=== PATIENT | male | born 1970 | race Caucasian/White ===

== ENCOUNTER → 2021-08-16 11:48 | Outpatient (CLI) | payer OTHER, SELFPAY ==
[2021-08-16 15:09] LABS: Absolute Lymphocyte Count 1.35 X10^3/uL (0.83-4.51); Basophil# 0.06 X10^3/uL; Eosinophil# 0.09 X10^3/uL; Eosinophils% 1.5 % (0-5); Hematocrit 49.7 % (40-54); Hemoglobin 16.3 g/dL (13.0-16.5); Lymphocyte # 1.35 X10^3/ul (0.83-4.51); Lymphocyte % 22.4 % (19-41); Mean Corp Hgb Conc 32.8 g/dL (32-36); Mean Corpuscular Hgb 28.7 pg (27.0-32.0); Mean Corpuscular Volume 87.5 fL (80-94); Mean Platelet Vol. 10.8 fl (6.2-12.0); Monocyte# 0.52 X10^3/uL; Monocyte% 8.6 % (0-10); NRBC Flagged by Analyzer 0 % (0-5); Neutrophil # 3.96 X10^3/uL (2.7-7.7); Neutrophil % 65.8 % (47-70); Platelet Count 233 K/mm3 (150-450); RBC Distribution Width SD 41.7 fl (35.1-43.9); Red Blood Count 5.68 M/mm3 (4.6-6.2)
[2021-08-16 15:32] LABS: ALB/GLOB Ratio 1.1 RATIO (0.9-2.4); AST(SGOT) 18 U/L (15-37); Alanine Aminotransfer ALT/SGPT 47 U/L (16-61); Albumin, Serum 3.9 g/dL (3.2-5.0); Alkaline Phosphatase 80 U/L (45-117); Anion Gap 7 (5-15); BUN 18 mg/dL (7-18); BUN/Creat Ratio 19.8 RATIO (10-20); Calcium,Total 8.7 mg/dL (8.5-10.1); Chloride 106 mmol/L (98-107); Cholesterol 148 mg/dL (200); Creatinine, Serum 0.91 mg/dL (0.70-1.30); EST Glomerular Filtration Rate 93 mL/min (>60); Est Glom Filt Rate - Afr Amer 113 mL/min (>60); Globulin 3.7 g/dL (2.2-4.2); Glucose 148 mg/dL (74-106); High Density Lipoprotein 48 mg/dL; Protein, Total 7.6 g/dL (6.4-8.2); Sodium Level 139 mmol/L (136-145); Thyroid Stim Hormone (TSH) 1.84 uIU/mL (0.358-3.74); Triglycerides 112 mg/dL; Very Low Density Lipoprotein 22 mg/dL (5-40)
[2021-08-16 15:35] LABS: Hemoglobin A1c 6.1 % (3.8-5.6)
[2021-08-16 15:36] LABS: Microalbumin,Random Urine 8.9 mg/L (NO RANGE EST.); Microalbumin:Creatinine Ratio 7.3 mg/g CRE (<30 mg/g CRE)
== END ==
PROVIDERS: Family Medicine; Visit Provider Family Medicine
DX: E11.9 Type 2 diabetes mellitus without complications (principal)
CPT/HCPCS: 36415; 80053; 80061; 82043; 82570; 83036; 84443; 85025

== ENCOUNTER → 2021-10-19 | Outpatient (CLI) | payer OTHER, SELFPAY | END | disposition home or self-care (01) | PROVIDERS: Visit Provider Family Medicine | DX: J22 Unspecified acute lower respiratory infection (principal) | CPT/HCPCS: 87633 ==

== ENCOUNTER 2021-10-22 09:33 | Emergency (ER) | payer OTHER, SELFPAY ==
[2021-10-22 09:34] VITALS: BP 175/80; PULSE 80; RESP 16; TEMP 36.9; O2SAT 99; BMI 34.0
[2021-10-22 09:38] VITALS: RESP 16; O2SAT 97
--- NOTE | 2021-10-22 09:38 | EKG12_ITS ---
Test Reason : POSS FLUTTER Blood Pressure : / mmHG Vent. Rate : 085 BPM Atrial Rate : 085 BPM P-R Int : 142 ms QRS Dur : 112 ms QT Int : 384 ms P-R-T Axes : 022 -17 019 degrees QTc Int : 456 ms Sinus rhythm with frequent Premature ventricular complexes Otherwise normal ECG Confirmed by VIANCA PARSONS, TIN ([id number]), editor school photograph SIMRAN BAKER ([id number]) on 10/25/2021 9:13:21 AM Referred By: RADHA Confirmed By:HERSON COLEY MD
--- NOTE | 2021-10-22 09:44 | RAD_ITS ---
STUDY: X-RAY CHEST REASON FOR EXAM: Male, 51 years old. SOB TECHNIQUE: Single AP portable view of the chest. COMPARISON: None. FINDINGS: EKG electrodes are seen. The lungs are clear and expanded. There is no demonstrated pleural abnormality. Normal size heart. Normal mediastinum and danielle. Normal visualized pulmonary arteries. Normal visualized aortic arch and descending thoracic aorta. Normal visualized thoracic spine. Normal visualized ribs, clavicles, and shoulders. There is no demonstrated abnormality of the visualized soft tissue structures of the upper abdomen. RAD/Chest 1 View (Portable) IMPRESSION: Normal x-ray examination of the chest. Electronically Signed: Everett Comer MD at 9:55 EST , Service support ,
[2021-10-22 09:58] VITALS: BP 123/66; PULSE 81; RESP 16; O2SAT 97
[2021-10-22 09:59] LABS: Absolute Lymphocyte Count 1.48 X10^3/uL (0.83-4.51); Absolute Neutrophil Count 5.4 X10^3/uL (2.0-7.7); Basophil# 0.06 X10^3/uL; Basophil% 0.7 % (0-1); Eosinophil# 0.06 X10^3/uL; Eosinophils% 0.7 % (0-5); Hematocrit 43.9 % (40-54); Hemoglobin 14.5 g/dL (13.0-16.5); Lymphocyte # 1.48 X10^3/ul (0.83-4.51); Lymphocyte % 18.5 % (19-41); Mean Corpuscular Volume 87.8 fL (80-94); Monocyte# 0.77 X10^3/uL; Monocyte% 9.6 % (0-10); NRBC Flagged by Analyzer 0 % (0-5); Neutrophil # 5.41 X10^3/uL (2.7-7.7); Neutrophil % 67.5 % (47-70); Platelet Count 331 K/mm3 (150-450); RBC Distribution Width CV 12.4 % (11.6-14.6); RBC Distribution Width SD 39.6 fl (35.1-43.9)
[2021-10-22 10:09] LABS: Anion Gap 6 (5-15); BUN 14 mg/dL (7-18); BUN/Creat Ratio 13.9 RATIO (10-20); Calcium,Total 8.9 mg/dL (8.5-10.1); Chloride 111 mmol/L (98-107); Creatinine, Serum 1.01 mg/dL (0.70-1.30); EST Glomerular Filtration Rate 83 mL/min (>60); Est Glom Filt Rate - Afr Amer 100 mL/min (>60); Estimated Creatinine Clearance 86.53 ml/min; Glucose 108 mg/dL (74-106); Potassium 3.9 mmol/L (3.5-5.1); Sodium Level 143 mmol/L (136-145); Troponin-I HS 4 pg/mL (3.0-78.0)
--- NOTE | 2021-10-22 10:12 | EDS_ITS ---
HPI History of Present Illness Chief Complaint: Shortness of Breath Informant: patient Onset/Context/Timing Onset: Today Timing: Continuous Quality: Chest Location: Congestion Worsened by: Nothing Relieved by: Nothing Narrative Narrative: Patient presents with irregular heartbeat that was noticed today. Patient states he was getting cleared for hemorrhoid surgery when they noticed that he was in atrial flutter on his EKG. Nurse practitioner noted that he went into atrial fibrillation with rapid ventricular response after that. She then states that he spontaneously converted to a sinus rhythm after that. Currently, the patient denies any symptoms other than some chest congestion. Patient states he is being treated for pneumonia. Patient states he has been on antibiotic for the pneumonia for the past 3 days. Patient is unsure of the name of the antibiotic but he takes it twice a day. Patient states she tested negative for COVID-19 on 10/14/2021. [facility] Medical History Acute hemorrhoid Diabetes History of stroke Home Medications aspirin 81 mg PO DAILY 10/22/21 [History Last Taken Unknown] atorvastatin 40 mg PO QHS 10/22/21 [History Last Taken Unknown] cefdinir 300 mg PO BID 10/22/21 [History Last Taken Unknown] metformin 1,000 mg PO BID 10/22/21 [History Last Taken Unknown] Allergy/AdvReac Type Severity Reaction Status Date / Time No Known Allergies Allergy Verified 10/22/21 10:00 Surgical History no surgical history no surgical history Social History Smoking Status: Never smoker ROS [facility] ED Constitutional Constitutional ED: Denies chills or fever(s) Eyes Eyes: Denies blurry vision or change in vision ENT ENT ED: Denies rhinorrhea or sore throat Cardiovascular Cardiovascular: Denies chest pain or palpitations Respiratory/Chest Respiratory/Chest: Reports cough and sputum; Denies dyspnea Gastrointestinal Gastrointestinal: Denies nausea or vomiting Genitourinary Genitourinary ED: Denies dysuria or hematuria Musculoskeletal Musculoskeletal: Denies back pain or neck pain Integumentary Denies abscess or rash Neurologic Neurologic: Denies headache(s) or weakness Allergic/Immunologic Allergic/Immunologic ED: Denies mouth swelling or urticaria EXAM Physical Exam Const Vital Signs: 10/22/21 09:34 10/22/21 09:38 10/22/21 09:58 Temperature 98.4 F Temperature Source Oral Pulse Rate 80 81 Respiratory Rate 16 16 16 Respiratory Effort Respiratory Pattern Blood Pressure 175/80 H 123/66 H Blood Pressure Mean 111 85 Pulse Ox 99 97 97 Oxygen Delivery Method Room Air Room Air Room Air 10/22/21 10:09 10/22/21 11:22 10/22/21 12:15 Temperature Temperature Source Pulse Rate 89 64 Respiratory Rate 16 13 Respiratory Effort Normal Respiratory Pattern Normal Blood Pressure 137/97 H 159/99 H Blood Pressure Mean 110 119 Pulse Ox 99 99 Oxygen Delivery Method Room Air Room Air Positive well nourished and well developed General Appearance ED: well developed HEENT Reports moist mucous membranes Neck supple and no JVD Resp normal respiratory effort and clear to auscultation bilaterally Cardio regular rate, regular rhythm and no murmurs Rate: other Other Details: There are frequent ectopic beats GI normal to inspection, nondistended, normoactive bowel sounds and non-tender Palpation: soft Extremity normal to inspection General Extremety ED: Negative for edema or tenderness General Extremity: Negative for edema Neuro oriented x3, CN's II-XII intact bilaterally and no sensory deficits noted Sensorium / Orientation: alert Motor Exam: strength 5/5 throughout Psych mental status grossly normal Skin no rashes or lesions noted MDM MDM MDM Narrative Medical decision making narrative: EKG was obtained. On my interpretation, it shows a normal sinus rhythm with frequent PVCs. There are no acute ST or T wave changes noted. UT interval, QRS interval, and QTc intervals were all within normal limits. [place] was normal. CBC was within normal limits. Basic metabolic profile was normal. Initial high-sensitivity troponin was normal. 2-hour repeat high-sensitivity troponin was normal. Portable 1 view chest x-ray was obtained. On my interpretation, lung mckeon are clear. There is normal cardiac silhouette. Bony thorax is normal. There is no acute process noted. Radiologist also interpreted the x-ray and agrees. Patient did have 1 brief episode of atrial fibrillation here in the emergency department. This resolved after just a few seconds. Patient was advised of his findings. Patient was instructed to follow-up with his primary care physician. Patient was advised that he may need a Holter monitor to monitor his heart rhythm for a few days. Patient understands and is agreeable with the plan. All questions were answered. Lab Data Attestation: I reviewed the patient's lab results. Labs: Laboratory Results - last 24 hr 10/22/21 10/22/21 10/22/21 09:41 09:41 11:50 WBC 8.0 RBC 5.00 Hgb 14.5 Hct 43.9 MCV 87.8 MCH 29.0 MCHC 33.0 RDW Std Deviation 39.6 RDW Coeff of Inderjit 12.4 Plt Count 331 MPV 10.0 Immature Gran % (Auto) 3.000 H Neut % (Auto) 67.5 Lymph % (Auto) 18.5 L [place] % (Auto) 9.6 Eos % (Auto) 0.7 Baso % (Auto) 0.7 Absolute Neuts (auto) 5.4 Absolute Lymphs (auto) 1.48 Nucleated RBC % 0 Sodium 143 Potassium 3.9 Chloride 111 H Carbon Dioxide 26.0 Anion Gap 6 BUN 14 Creatinine 1.01 Estim Creat Clear Calc 86.53 Est GFR (MDRD) Af Amer 100 Est GFR (MDRD) Non-Af 83 BUN/Creatinine Ratio 13.9 Glucose 108 H Calcium 8.9 Troponin I High Sens 4 5 Radiography Chest X-Ray - ED: 1 View, Read by ED Physician, Read by Radiologist and Normal Diagnostic Testing: Clinical Impression(s) from Imaging Studies Chest X-Ray 10/22/21 09:44 IMPRESSION: Normal x-ray examination of the chest. Electronically Signed: Everett Comer MD at 9:55 EST , Service support , EKG Initial EKG: Attestation: I personally reviewed and interpreted this EKG as follows: Interpretation: Sinus Rhythm (85) and No Acute Injury Pattern Comments: There are frequent PVCs noted Prior EKG tracings: not available for review Discharge Plan Triage Chief Complaint: Shortness of Breath Other Complaint: Palpitations ED Provider: Ladarius Schaffer Dx/Rx/DC Orders Clinical Impression: Heart palpitations Instructions: ED About Arrhythmias, ED Palpitations Prescriptions: No Action atorvastatin 40 mg tablet 40 mg PO QHS RF: 0 metformin 500 mg tablet 1,000 mg PO BID RF: 0 aspirin 81 mg tablet,delayed release (DR/EC) 81 mg PO DAILY RF: 0 cefdinir 300 mg capsule 300 mg PO BID RF: 0 Primary Care Provider: Dar Waters Referrals: Dar Waters MD [Primary Care Provider] - 3-5 Days Disposition Disposition: Home, Self Care
[2021-10-22 11:22] VITALS: BP 137/97; PULSE 89; RESP 16; O2SAT 99
--- NOTE | 2021-10-22 12:00 | ED.RN ---
pt hr jumped up to 130's for about 30 seconds appears to remain in sinus rhythm, sinus tachy. then returned to 60's. nsr with frequent pvc's. dr looney notified.
[2021-10-22 12:13] LABS: Troponin-I HS 5 pg/mL (3.0-78.0)
[2021-10-22 12:15] VITALS: BP 159/99; PULSE 64; RESP 13; O2SAT 99
[2021-10-22 13:39] VITALS: BP 140/105; PULSE 70; RESP 12; O2SAT 96
== END 2021-10-22 13:40 | disposition home or self-care (01) ==
PROVIDERS: Emergency Provider Emergency Medicine; PCP Family Medicine
DX: R00.2 Palpitations (principal); E11.9 Type 2 diabetes mellitus without complications; Z79.84 Long term (current) use of oral hypoglycemic drugs
CPT/HCPCS: 71045; 80048; 84484; 85025; 93005; 94760; 99284; A4216

== ENCOUNTER 2021-11-11 10:08 | Observation (INO) | payer OTHER, SELFPAY ==
[2021-11-11] VITALS (10 sets, daily range): BP systolic 92–112; BP diastolic 38–64; PULSE 62–82; RESP 14–16; TEMP 36.1–36.8; O2SAT 96–100; BMI 32.9; BMI 32.7
--- NOTE | 2021-11-11 10:39 | EKG12_ITS ---
Test Reason : SYNCOPE Blood Pressure : / mmHG Vent. Rate : 072 BPM Atrial Rate : 072 BPM P-R Int : 132 ms QRS Dur : 098 ms QT Int : 390 ms P-R-T Axes : 004 -13 -05 degrees QTc Int : 427 ms Normal sinus rhythm Normal ECG Confirmed by CARLOS PARSONS, AIDE ([id number]), data input clerk SIMRAN BAKER ([id number]) on 11/16/2021 9:29:08 AM Referred By: BB Confirmed By:AIDE GONZALEZ MD
--- NOTE | 2021-11-11 10:40 | EX.ED.DYSGE1 ---
HPI History of Present Illness Chief Complaint: Syncope Informant: patient and spouse/S.O. Onset/Context/Timing Onset: Today Quality: lightheaded/weak, followed by brief syncopal episode Current Severity: Gone Maximum Severity: Severe Worsened by: standing Relieved by: sitting/lying down Associated Symptoms Associated Symptoms: see below Narrative Narrative: Patient had a syncopal episode this morning, he started having diarrhea after dinner last night that became bloody, and then he was having episodes of worsening bloody diarrhea with clots in it every several hours overnight. Presents here around 10:30 AM after having this the whole night. 1 week ago today, he had a hemorrhoidectomy at [facility]. For his preop screening it was noted that he had A. fib/a flutter, so he was prescribed Eliquis to start after surgery but not before; beforehand he was only taking aspirin daily since his remote stroke that gave him mostly left-sided paresthesias, he has some minor patches of paresthesias as residual deficits since then. He states for the first 3 or so days after surgery his blood pressures were really high and so the human resources manager manufacturing that he saw preoperatively at [facility] prescribed him losartan/HCTZ which he started 3 days ago at the same time as the Eliquis. Has not been taking aspirin. Until this major bleeding started, he was only having very minor bleeding with bowel movements and a slight amount of yellow discharge which she was told was normal by his surgeon. No other recent illness. He is concerned that he might have lost a bunch of blood causing him to pass out, reasonable concern. EMS blood pressure was 98 systolic, it is 72 at the time of my evaluation although initially when the patient arrived here after getting some fluid from EMS it was 105/50. About 4 weeks ago or so, he had been on metoprolol and was diagnosed with pneumonia and also had symptomatic bradycardia, and his metoprolol was discontinued and has not been restarted since. He recovered from the illness prior to the surgery. When he had the diarrhea since last night, he states it started after eating meatballs, he denies having any abdominal pains, nausea, vomiting. Today with the syncopal episode, he denies any new neurologic symptoms. He states he feels fine right now while lying supine with no symptoms. [facility] Medical History Acute hemorrhoid Diabetes History of stroke Home Medications atorvastatin 40 mg PO DAILY 10/22/21 [History Last Taken 11/11/21] metformin 500 mg PO BID 10/22/21 [History Last Taken 11/11/21] apixaban [Eliquis] 5 mg PO BID 11/11/21 [History Last Taken 11/11/21] ibuprofen 400 mg PO DAILY 11/11/21 [History Last Taken 11/11/21] losartan-hydrochlorothiazide 1 tab PO DAILY 11/11/21 [History Last Taken 11/11/21] Allergy/AdvReac Type Severity Reaction Status Date / Time No Known Allergies Allergy Verified 10/22/21 10:00 Surgical History H/O: hemorrhoidectomy Social History Smoking Status: Never smoker ROS ROS ED Constitutional Constitutional ED: Denies chills or fever(s) Eyes Eyes: Denies change in vision or diplopia ENT ENT ED: Denies rhinorrhea or sore throat Cardiovascular Cardiovascular: Denies chest pain or palpitations Respiratory/Chest Respiratory/Chest: Denies cough or dyspnea Gastrointestinal Gastrointestinal: Reports as per HPI, diarrhea and hematochezia; Denies abdominal pain, nausea or vomiting Genitourinary Genitourinary ED: Denies dysuria or hematuria Musculoskeletal Musculoskeletal: Denies back pain or neck pain Integumentary Denies abscess or rash Neurologic Neurologic: Denies headache(s), paresthesias or weakness Psychiatric Psychiatric: Denies anxiety or suicidal thoughts EXAM Physical Exam Const Vital Signs: 11/11/21 10:09 11/11/21 10:15 11/11/21 11:40 Temperature 97.9 F 97.9 F Temperature Source Temporal Temporal Pulse Rate 79 79 82 Respiratory Rate 16 16 14 Respiratory Pattern Normal Blood Pressure 105/50 L 105/50 L 92/50 L Blood Pressure Mean 68 68 64 Pulse Ox 98 98 99 Oxygen Delivery Method Room Air Room Air 11/11/21 12:55 Temperature Temperature Source Pulse Rate Respiratory Rate Respiratory Pattern Blood Pressure 93/64 Blood Pressure Mean 73 Pulse Ox Oxygen Delivery Method Positive well nourished and well developed General Appearance ED: well developed and NAD HEENT Reports moist mucous membranes normocephalic and atraumatic Eyes PERRL and EOMs intact bilaterally Neck full ROM and supple Resp normal respiratory effort and clear to auscultation bilaterally Cardio regular rate, regular rhythm, no murmurs and peripheral pulses 2+ throughout; Negative for diaphoretic Cardio Narrative: Mostly regular but frequent short-lived irregularities audible Rate: Negative for bradycardia or tachycardic GI non-tender and non-distended Auscultation: hyperactive bowel sounds Palpation: soft Back/Spine no CVA tenderness General Back: other FROM Extremity normal to inspection General Extremety ED: Negative for edema, pulses abnormal or tenderness General Extremity: Negative for edema or pulses abnormal Neuro oriented x3, CN's II-XII intact bilaterally, moves all extremities and no focal motor deficits Neuro Narrative: No gross sensory deficits Sensorium / Orientation: awake and alert Motor Exam: strength 5/5 throughout Skin no rashes or lesions noted and no wounds MDM MDM MDM Narrative Medical decision making narrative: Patient was given IV fluid bolus while labs were pending and he was typed/screened. His hemoglobin is 11.5, I recently was over 14, and I suspect that his syncopal episode is due to the volume loss from the bleeding, but not necessarily the anemia itself since he is not in need of a transfusion at this level. He is doing very well clinically, after IV fluids his pressures up to 92/50, right before the first liter is done. I discussed with Dr. Flores, covering for the patient's human resources manager manufacturing at [facility], who agrees with discontinuing the anticoagulation until further notice, he agrees that the patient may get his outpatient scheduled echocardiogram as an outpatient and not necessarily need to be admitted for that right now, and he states it may be reasonable to refer the patient meant for a watchman device in the near future, and the patient can follow-up with cardiology as an outpatient. I discussed with Dr. Mora who was on for GI for us, he agrees with giving the patient IV Protonix, and he would be happy to evaluate the patient on the inpatient side. Discussed with colorectal surgery on-call physician at [facility], who agrees with admitting the patient locally since there are no available beds at [facility] right now, and they do not require the patient be there given the surgery that he recently had done. They do request that a surgeon be on board at our facility if we admit him here, so I did discuss with Dr. Medina, who agrees to help and evaluate if needed, if the patient needs emergent surgical hemostasis or evaluation for it at any point. Discussed with hospitalist for patient observation to PCU. Lab Data Attestation: I reviewed the patient's lab results. Labs: Laboratory Results - last 24 hr 11/11/21 11/11/21 11/11/21 10:01 10:01 10:54 WBC 10.1 RBC 3.98 L Hgb 11.5 L Hct 35.3 L MCV 88.7 MCH 28.9 MCHC 32.6 RDW Std Deviation 42.0 RDW Coeff of Inderjit 12.8 Plt Count 285 MPV 10.9 Immature Gran % (Auto) 1.200 H Neut % (Auto) 79.2 H Lymph % (Auto) 10.5 L [place] % (Auto) 8.2 Eos % (Auto) 0.4 Baso % (Auto) 0.5 Absolute Neuts (auto) 8.0 H Absolute Lymphs (auto) 1.06 Nucleated RBC % 0 Sodium 142 Potassium 4.2 Chloride 107 Carbon Dioxide 29.0 Anion Gap 6 BUN 23 H Creatinine 1.22 Estim Creat Clear Calc 71.63 Est GFR (MDRD) Af Amer 81 Est GFR (MDRD) Non-Af 67 BUN/Creatinine Ratio 18.9 Glucose 192 H Calcium 9.5 Troponin I High Sens 8 Blood Type O POSITIVE Antibody Screen NEGATIVE Rhythm Strip Rhythm Strip: Sinus Rhythm Rate: 80 Ectopy: PVC(s) (frequent) EKG Initial EKG: Attestation: I personally reviewed and interpreted this EKG as follows: Interpretation: Sinus Rhythm (72) and No Acute Injury Pattern Comments: normal EKG w/o ectopy Discharge Plan Dx/Rx/DC Orders Clinical Impression: Postoperative anemia due to acute blood loss, Syncope due to orthostatic hypotension, Acute GI bleeding Disposition Disposition: [facility]
[2021-11-11] MEDS: 0.9% Normal Saline 1,000 ML 999 ML IV ×2 (10:58→12:54)
--- NOTE | 2021-11-11 10:59 | ED.RN ---
Laureen returned called. Per Laureen, this company uses [facility] [employer] [facility] and would like the patient to return to the office and then will be directed there upon leaving this ER. RN agreeable, Juliocesar states she will call pt and inform him of plan.
[2021-11-11 11:05] LABS: Absolute Lymphocyte Count 1.06 X10^3/uL (0.83-4.51); Basophil# 0.05 X10^3/uL; Basophil% 0.5 % (0-1); Eosinophil# 0.04 X10^3/uL; Eosinophils% 0.4 % (0-5); Hematocrit 35.3 % (40-54); Hemoglobin 11.5 g/dL (13.0-16.5); Lymphocyte # 1.06 X10^3/ul (0.83-4.51); Lymphocyte % 10.5 % (19-41); Mean Corp Hgb Conc 32.6 g/dL (32-36); Mean Corpuscular Hgb 28.9 pg (27.0-32.0); Mean Corpuscular Volume 88.7 fL (80-94); Mean Platelet Vol. 10.9 fl (6.2-12.0); Monocyte# 0.83 X10^3/uL; Monocyte% 8.2 % (0-10); NRBC Flagged by Analyzer 0 % (0-5); Neutrophil # 8.03 X10^3/uL (2.7-7.7); Neutrophil % 79.2 % (47-70); Platelet Count 285 K/mm3 (150-450); RBC Distribution Width CV 12.8 % (11.6-14.6); Red Blood Count 3.98 M/mm3 (4.6-6.2); White Blood Count 10.1 K/mm3 (4.4-11.0)
[2021-11-11 11:26] LABS: Anion Gap 6 (5-15); BUN 23 mg/dL (7-18); BUN/Creat Ratio 18.9 RATIO (10-20); Calcium,Total 9.5 mg/dL (8.5-10.1); Chloride 107 mmol/L (98-107); Creatinine, Serum 1.22 mg/dL (0.70-1.30); EST Glomerular Filtration Rate 67 mL/min (>60); Est Glom Filt Rate - Afr Amer 81 mL/min (>60); Estimated Creatinine Clearance 71.63 ml/min; Glucose 192 mg/dL (74-106); Potassium 4.2 mmol/L (3.5-5.1); Sodium Level 142 mmol/L (136-145); Troponin-I HS 8 pg/mL (3.0-78.0)
--- NOTE | 2021-11-11 14:26 | HP.PCM.HOS_ITS ---
HPI - General General Date of Admission: 11/11/21 HPI Narrative Patient had a presyncopal episode this morning when moving room items around and stated himself on the office chair and fell to the floor. He did not black out and had no focal deficits. The patient notes that he has been having normal bowel movements but last night he began having diarrhea after dinner last night, that became bloody, and then he was having episodes of worsening bloody diarrhea with clots -at least 6 episodes in total. Patient did state he never had a full colonoscopy but during the hemorrhoidectomy they did see diverticulosis per the . The patient has no abdominal pain, and no reports of hematemesis. He recently had a hemorrhoidectomy on November 04 and started Eliquis for newly diagnosed A. fib, 5 days after his hemorrhoid operation. He sees cardiology at [facility] and they recently started blood pressure medicine for BP recorded at home over 180 systolic. His blood pressure has been lower in the last 2 days as a result of taking the new prescribed medication losartan/HTCZ. They were planning an echocardiogram for next week. ED did contact cardiology who stated his management would be outpatient. GI was consulted regarding his GI bleed and they agreed with PPI therapy. Surgery was called and they stated they be available if there was any acute bleeding requiring intervention. Hemoglobin was 11.4 from 14, and blood pressure was 93/64 at its lowest and blood pressure responded well to 1.5 L of IV fluid Patient does not smoke or drink Family history was reviewed and he does not have history of colon cancer [facility] Medical History (Updated 11/11/21 @ 15:00 by Geraldine Pulido) Acute hemorrhoid Atrial fibrillation Diabetes Diverticulitis History of stroke Home Medications atorvastatin 40 mg PO DAILY 10/22/21 [History Last Taken 11/11/21] metformin 500 mg PO BID 10/22/21 [History Last Taken 11/11/21] apixaban [Eliquis] 5 mg PO BID 11/11/21 [History Last Taken 11/11/21] ibuprofen 400 mg PO DAILY 11/11/21 [History Last Taken 11/11/21] losartan-hydrochlorothiazide 1 tab PO DAILY 11/11/21 [History Last Taken 11/11/21] Allergy/AdvReac Type Severity Reaction Status Date / Time No Known Allergies Allergy Verified 10/22/21 10:00 Surgical History H/O: hemorrhoidectomy Social History Smoking Status: Never smoker ROS ROS Narrative + rectal bleeding, Light headed. No f/c, cp, chest racing cough, abdominal pain, sob nor hematuria/dysuria, no vomiting/nausea. No trouble with skin, muscle pain or joint problems, no insomnia. No seizures, no numbness/tingling. Vital Signs Vital Signs Vital Signs: 11/11/21 10:09 11/11/21 10:15 11/11/21 11:40 Temperature 97.9 F 97.9 F Temperature Source Temporal Temporal Pulse Rate 79 79 82 Respiratory Rate 16 16 14 Respiratory Pattern Normal Blood Pressure 105/50 L 105/50 L 92/50 L Blood Pressure Mean 68 68 64 Pulse Ox 98 98 99 Oxygen Delivery Method Room Air Room Air 11/11/21 12:55 11/11/21 14:10 Temperature 97 F L Temperature Source Temporal Pulse Rate 69 Respiratory Rate 14 Respiratory Pattern Blood Pressure 93/64 112/59 L Blood Pressure Mean 73 76 Pulse Ox 99 Oxygen Delivery Method Room Air Weight Weight: 223 lb 1.725 oz Body Mass Index (BMI) 32.9 Physical Exam Const alert General Appearance: cooperative HEENT normocephalic and head/scalp atraumatic Neck no lymphadenopathy Resp normal respiratory effort Cardio regular rate, regular rhythm, S1 normal heart sound and S2 normal heart sound GI normal to inspection, nondistended, normoactive bowel sounds Extremity normal to inspection and no clubbing, cyanosis or edema Skin no rashes or lesions noted Neuro Sensorium / Orientation: awake and alert Psych affect normal Results Lab / Micro Data Result Diagrams: 11/11/21 10:01 11/11/21 10:01 Labs: Laboratory Results - last 24 hr 11/11/21 10:01: WBC 10.1, RBC 3.98 L, Hgb 11.5 L, Hct 35.3 L, MCV 88.7, MCH 28.9, MCHC 32.6, RDW Std Deviation 42.0, RDW Coeff of Inderjit 12.8, Plt Count 285, MPV 10.9, Immature Gran % (Auto) 1.200 H, Neut % (Auto) 79.2 H, Lymph % (Auto) 10.5 L, [place] % (Auto) 8.2, Eos % (Auto) 0.4, Baso % (Auto) 0.5, Absolute Neuts (auto) 8.0 H, Absolute Lymphs (auto) 1.06, Nucleated RBC % 0 11/11/21 10:01: Sodium 142, Potassium 4.2, Chloride 107, Carbon Dioxide 29.0, Anion Gap 6, BUN 23 H, Creatinine 1.22, Estim Creat Clear Calc 71.63, Est GFR (MDRD) Af Amer 81, Est GFR (MDRD) Non-Af 67, BUN/Creatinine Ratio 18.9, Glucose 192 H, Calcium 9.5, Troponin I High Sens 8 11/11/21 10:54: Blood Type O POSITIVE, Antibody Screen NEGATIVE Rhythm Strip Rhythm Strip: Sinus Rhythm Rate: 80 Ectopy: PVC(s) (frequent) Assessment & Plan Assessment/Plan (1) Pre-syncope: (2) Acute GI bleeding: (3) Postoperative anemia due to acute blood loss: PLAN: Presyncope -Hold patient's antihypertensive medication at this time and monitor blood pressure. Suspect medication may be partly culprit for hypotension. -Will need echo as an outpatient, and this is planned for next week -No signs of volume depletion at this time -Do not suspect hemorrhagic shock given stable hemoglobin 11.4 -Type and screen already completed -Fall precautions, and cardiac monitoring. Lower GI bleed -GI already contacted in ED -Highly suspect lower GI bleed given presentation -Continue PPI orally twice daily, and clear liquid diet in case GI would plan colonoscopy -Per history patient does have diverticulosis on sigmoidoscopy -Would hold Eliquis and Lovenox at this time, use SCDs -Transfuse if less than 7, hgb -Needs full c-scope at some point for screening Afib - Likely paroxysmal. EKG with NSR - BB held in past. DM2 - SSI and routine glucose checks-hold metformin HTN - Hold BP meds and monitor Full code SCDS given bleeding Clear liquid diet Edouard Varma MD Charges/Coding Visit Charges Inpatient E&M: 26880 Init Hosp L3
--- NOTE | 2021-11-11 14:32 | PCS.PANDOC ---
PANDEMIC DOCUMENTATION INITIATED: Date: 07/05/2021 Time: 190
[2021-11-11 16:31] LABS: Bedside Glucose 118 mg/dL (70-110)
--- NOTE | 2021-11-11 19:18 | EX.PCM.CON.G ---
HPI Consult Data Date of Consult: 11/11/21 HPI Narrative HPI Narrative: INDIGO VIEYRA, is a 51 M who presents from home with multiple episodes of lower GI bleeding. He has a past medical history of diabetes mellitus A. fib status post TIA on Eliquis therapy. He recently had a hemorrhoidectomy approximately week ago. After the surgery he was discovered to have an increased blood pressure. He was started on beta-mauricio therapy on 11/10/2021. Prior to being started on beta-mauricio therapy he was started on Eliquis 5 mg twice daily for stroke prophylaxis. He was eating at home and developed the need to go to the bathroom. He had multiple episodes of lower GI bleeding. He had a syncopal event in was noted to have a blood pressure of 83/55 with a heart rate of 74. When he came to the ED he was hypotensive and tachycardic. His hemoglobin was 11 when he was previously 16.5. At this time, his blood pressure is 115/60 with a heart rate of 80. He received 2 L of IV fluids and has been maintaining his blood pressure. He is also noted to take ibuprofen for mild abdominal pain. He was taking narcotics and ibuprofen after surgery. He does not take any more blood thinners. [facility] Medical History (Updated 11/11/21 @ 15:00 by Geraldine Pulido) Acute hemorrhoid Atrial fibrillation Diabetes Diverticulitis History of stroke Home Medications atorvastatin 40 mg PO DAILY 10/22/21 [History Last Taken 11/11/21] metformin 500 mg PO BID 10/22/21 [History Last Taken 11/11/21] apixaban [Eliquis] 5 mg PO BID 11/11/21 [History Last Taken 11/11/21] ibuprofen 400 mg PO DAILY 11/11/21 [History Last Taken 11/11/21] losartan-hydrochlorothiazide 1 tab PO DAILY 11/11/21 [History Last Taken 11/11/21] Allergy/AdvReac Type Severity Reaction Status Date / Time No Known Allergies Allergy Verified 10/22/21 10:00 Surgical History H/O: hemorrhoidectomy Social History Smoking Status: Never smoker ROS Gastrointestinal Gastrointestinal: Reports hematochezia and rectal bleeding Lab / Micro Data Result Diagrams: 11/11/21 10:01 11/11/21 10:01 Labs: Laboratory Results - last 24 hr 11/11/21 10:01: WBC 10.1, RBC 3.98 L, Hgb 11.5 L, Hct 35.3 L, MCV 88.7, MCH 28.9, MCHC 32.6, RDW Std Deviation 42.0, RDW Coeff of Inderjit 12.8, Plt Count 285, MPV 10.9, Immature Gran % (Auto) 1.200 H, Neut % (Auto) 79.2 H, Lymph % (Auto) 10.5 L, [place] % (Auto) 8.2, Eos % (Auto) 0.4, Baso % (Auto) 0.5, Absolute Neuts (auto) 8.0 H, Absolute Lymphs (auto) 1.06, Nucleated RBC % 0 11/11/21 10:01: Sodium 142, Potassium 4.2, Chloride 107, Carbon Dioxide 29.0, Anion Gap 6, BUN 23 H, Creatinine 1.22, Estim Creat Clear Calc 71.63, Est GFR (MDRD) Af Amer 81, Est GFR (MDRD) Non-Af 67, BUN/Creatinine Ratio 18.9, Glucose 192 H, Calcium 9.5, Troponin I High Sens 8 11/11/21 10:54: Blood Type O POSITIVE, Antibody Screen NEGATIVE 11/11/21 16:27: POC Glucose 118 H Rhythm Strip Rhythm Strip: Sinus Rhythm Rate: 80 Ectopy: PVC(s) (frequent) Assessment & Plan Assessment/Plan (1) Postoperative anemia due to acute blood loss: PLAN: Gnosis does include hemorrhoidal bleeding after his surgery with initiation of anticoagulation. (2) Syncope due to orthostatic hypotension: PLAN: This is likely secondary to either lower GI bleed secondary to diverticular bleed, ischemic colitis or hemorrhoidal bleeding. Also no definitive diagnosis would be upper GI bleed with rapid transit. He received PPI therapy in the ED. Would recommend to perform a colonoscopy and possibly an upper endoscopy. (3) Acute GI bleeding: Charges/Coding Visit Charges Inpatient E&M: 12323 Init Hosp L3
[2021-11-11] MEDS: Electrolyte Solution/Peg's 4000 ML PO (20:32)
[2021-11-11 22:05] LABS: Bedside Glucose 97 mg/dL (70-110)
[2021-11-12] VITALS (8 sets, daily range): BP systolic 90–110; BP diastolic 41–77; PULSE 57–93; RESP 16–18; TEMP 36.2–36.5; O2SAT 96–100
[2021-11-12 05:58] LABS: Absolute Lymphocyte Count 1.24 X10^3/uL (0.83-4.51); Absolute Neutrophil Count 4.3 X10^3/uL (2.0-7.7); Basophil# 0.04 X10^3/uL; Basophil% 0.6 % (0-1); Eosinophil# 0.11 X10^3/uL; Eosinophils% 1.7 % (0-5); Hematocrit 26.2 % (40-54); Hemoglobin 8.8 g/dL (13.0-16.5); Lymphocyte # 1.24 X10^3/ul (0.83-4.51); Lymphocyte % 19.4 % (19-41); Mean Corp Hgb Conc 33.6 g/dL (32-36); Mean Corpuscular Hgb 29.4 pg (27.0-32.0); Mean Corpuscular Volume 87.6 fL (80-94); Mean Platelet Vol. 10.4 fl (6.2-12.0); Monocyte% 9.4 % (0-10); NRBC Flagged by Analyzer 0 % (0-5); Neutrophil # 4.32 X10^3/uL (2.7-7.7); Neutrophil % 67.6 % (47-70); Platelet Count 181 K/mm3 (150-450); RBC Distribution Width CV 13.1 % (11.6-14.6); RBC Distribution Width SD 41.2 fl (35.1-43.9); Red Blood Count 2.99 M/mm3 (4.6-6.2); White Blood Count 6.4 K/mm3 (4.4-11.0)
[2021-11-12 06:08] LABS: International Normalized Ratio 1.2; Prothrombin Time (Protime)PT. 14.7 SECONDS (11.7-14.9)
[2021-11-12 06:09] LABS: Partial Thromboplast Time 30.1 Seconds (24.1-36.2)
[2021-11-12 06:23] LABS: Anion Gap 9 (5-15); BUN 16 mg/dL (7-18); BUN/Creat Ratio 17.1 RATIO (10-20); Calcium,Total 7.9 mg/dL (8.5-10.1); Chloride 105 mmol/L (98-107); Creatinine, Serum 0.94 mg/dL (0.70-1.30); EST Glomerular Filtration Rate 90 mL/min (>60); Est Glom Filt Rate - Afr Amer 109 mL/min (>60); Estimated Creatinine Clearance 92.97 ml/min; Glucose 148 mg/dL (74-106); Potassium 3.3 mmol/L (3.5-5.1); Sodium Level 142 mmol/L (136-145)
[2021-11-12 06:55] LABS: Bedside Glucose 142 mg/dL (70-110)
--- NOTE | 2021-11-12 07:50 | COLBX_PTH ---
PATIENT: INDIGO VIEYRA LOC: PCU U#:[id number] AGE/SX: 51/M ROOM: [facility] RE11/11/[address]: Dr. Lana Dan MD : 1970 BED: 1 DIS: 11/12/2021 SPEC #: [id number] RECD: 11/12/21 09:01 STATUS: FUAD CHACON #: [id number] ADILENE: 11/12/21 07:[address]: Lamine Mora DEPT: SURGICAL PATHOLOGY RECD BY: Wilian Yung ENTERED: 11/14/21 17:01 SP TYPE: COLON BX OTHR DR: MD Dr. Dar Gagnon MD Dr. Ryan Burkholder, MD Tissues: Sigmoid colon biopsy Procedures: Surgery Specimen Level IV HEADER OPERATION: Colonoscopy (MAC) PRE-OP DIAGNOSIS: GI bleed TISSUE SUBMITTED: Sigmoid biopsy MICROSCOPIC DIAGNOSIS Sigmoid biopsy: Fragments of colonic mucosa with focal area of recent congestion and hemorrhage. See comment. SAÚL:jasmina 11/16/2021 COMMENT Clinical correlation and appropriate follow up are necessary. MICROSCOPIC DESCRIPTION Slides are reviewed. GROSS DESCRIPTION Received in fixative is one container labeled with the patient's name and designated sigmoid biopsy. The specimen consists of two irregular fragments of light howard soft tissue that in aggregate measure 0.6 x 0.3 x 0.1 cm. The specimen is totally submitted in one cassette. / SAÚL:jasmina 11/15/21 TC:5 CPT: 26561
[2021-11-12] MEDS: Lactated Ringers 1,000 ML 15 ML IV (09:01)
--- NOTE | 2021-11-12 09:05 | OP.CCLET_ITS ---
07/27/2022 Dar Waters [address] [place] [address] Re : Colonoscopy procedure for Jaime Martinez Dear Dr. Waters This procedure was performed on Friday, November 12, 2021. My impressions and recommendations are as follows: Impressions : - Preparation of the colon was poor. - Abnormal digital exam. - Moderate diverticulosis in the recto-sigmoid colon, in the sigmoid colon, in the descending colon and at the splenic flexure. There was no evidence of diverticular bleeding. - Stool in the rectum, in the recto-sigmoid colon, in the sigmoid colon, in the descending colon, at the splenic flexure, in the transverse colon, at the hepatic flexure, in the ascending colon and in the cecum. - Mucosal ulceration. - Mucosal ulceration. Biopsied. Recommendations : - Discharge patient to home. - Advance diet as tolerated and high fiber diet today. - Repeat colonoscopy in 6 months because the bowel preparation was suboptimal. - Patient will need to have repeat evaluation and likely surgery. - Return to GI office PRN. - No aspirin, ibuprofen, naproxen, or other non-steroidal anti-inflammatory drugs for 2 weeks. My findings are described in the full procedure note, which is enclosed. If I can be of further assistance, please feel free to contact me at . Sincerely, Lamine Mora, 11/12/2021 9:05:13 AM This report has been signed electronically.
--- NOTE | 2021-11-12 09:05 | OP.COLON_ITS ---
Patient Name: Jaime Martinez Procedure Date: 11/12/2021 8:15 AM Date of : 1970 Age: 51 Procedure: Colonoscopy Indications: Hematochezia Providers: Lamine Mora DO Medicines: See the Anesthesia note for documentation of the administered medications Patient Profile: This is a 51 year old male. Refer to note in patient chart for documentation of history and physical. Last Colonoscopy: more than 3 years ago. Complications: No immediate complications. Procedure: Pre-Anesthesia Assessment: - Prior to the procedure, a History and Physical was performed, and patient medications and allergies were reviewed. The risks and benefits of the procedure and the sedation options and risks were discussed with the patient. All questions were answered and informed consent was obtained. Patient identification and proposed procedure were verified by the physician in the pre-procedure area. Mental Status Examination: alert and oriented. Airway Examination: normal oropharyngeal airway and neck mobility. Respiratory Examination: clear to auscultation. CV Examination: normal. Prophylactic Antibiotics: The patient does not require prophylactic antibiotics. Prior Anticoagulants: The patient has taken no previous anticoagulant or antiplatelet agents. After reviewing the risks and benefits, the patient was deemed in satisfactory condition to undergo the procedure. The anesthesia plan was to use moderate sedation / analgesia (conscious sedation). Immediately prior to administration of medications, the patient was re-assessed for adequacy to receive sedatives. The heart rate, respiratory rate, oxygen saturations, blood pressure, adequacy of pulmonary ventilation, and response to care were monitored throughout the procedure. The physical status of the patient was re-assessed after the procedure. After I obtained informed consent, the scope was passed under direct vision. Throughout the procedure, the patient's blood pressure, pulse, and oxygen saturations were monitored continuously. The colonoscope was introduced through the anus and advanced to the cecum, identified by appendiceal orifice and ileocecal valve. The colonoscopy was performed without difficulty. The patient tolerated the procedure well. The quality of the bowel preparation was poor. Moderate Sedation: Moderate (conscious) sedation was administered by the endoscopy nurse and supervised by the endoscopist. The patient's oxygen saturation, heart rate, blood pressure and response to care were monitored. Total physician intraservice time was 15 minutes. Scope In: 8:29:08 AM Scope Withdrawal Time 0 hours 8 minutes 40 seconds Scope Out: 8:41:21 AM Total Procedure Duration Time 0 hours 12 minutes 13 seconds Findings: The digital exam findings include Visible suture with excoriation and large defect at the anorectal verge at the 7 o'clock position. There was also old clot with ulceration from the 9:00 to 12 o'clock position on retroflexion. Multiple small and large-mouthed diverticula were found in the recto-sigmoid colon, sigmoid colon, descending colon and splenic flexure. There was no evidence of diverticular bleeding. A large amount of liquid semi-liquid semi-solid stool was found in the rectum, in the recto-sigmoid colon, in the sigmoid colon, in the descending colon, at the splenic flexure, in the transverse colon, at the hepatic flexure, in the ascending colon and in the cecum, precluding visualization. Lavage of the area was performed using 200 - 500 mL of sterile water, resulting in incomplete clearance with continued poor visualization. Discontinuous areas of nonbleeding ulcerated mucosa with stigmata of recent bleeding were present at the anus. Discontinuous areas of nonbleeding ulcerated mucosa with stigmata of recent bleeding were present in the sigmoid colon. Biopsies were taken with a cold forceps for histology. Estimated blood loss was minimal. Impression: - Preparation of the colon was poor. - Abnormal digital exam. - Moderate diverticulosis in the recto-sigmoid colon, in the sigmoid colon, in the descending colon and at the splenic flexure. There was no evidence of diverticular bleeding. - Stool in the rectum, in the recto-sigmoid colon, in the sigmoid colon, in the descending colon, at the splenic flexure, in the transverse colon, at the hepatic flexure, in the ascending colon and in the cecum. - Mucosal ulceration. - Mucosal ulceration. Biopsied. Recommendation: - Discharge patient to home. - Advance diet as tolerated and high fiber diet today. - Repeat colonoscopy in 6 months because the bowel preparation was suboptimal. - Patient will need to have repeat evaluation and likely surgery. - Return to GI office PRN. - No aspirin, ibuprofen, naproxen, or other non-steroidal anti-inflammatory drugs for 2 weeks. Procedure Code(s): --- Professional --- 26815, Colonoscopy, flexible; with biopsy, single or multiple 61303, 59, Moderate sedation services provided by the same physician or other qualified health home care music therapist performing the diagnostic or therapeutic service that the sedation supports, requiring the presence of an independent trained observer to assist in the monitoring of the patient's level of consciousness and physiological status; initial 15 minutes of intraservice time, patient age 5 years or older CPT copyright 2017 [employer]. All rights reserved. The codes documented in this report are preliminary and upon medical coder review may be revised to meet current compliance requirements. Lamine Mora DO 11/12/2021 9:05:13 AM This report has been signed electronically. Number of Addenda: 1 Note Initiated On: 11/12/2021 8:15 AM Addendum Number: 1 Addendum Date: 07/27/2022 7:21:55 AM MAC was used instead of moderate sedation for the patient. Lamine Mora DO 07/27/2022 7:22:02 AM This report has been signed electronically.
[2021-11-12 09:13] LABS: Hemoglobin A1c 6.5 % (3.8-5.6)
--- NOTE | 2021-11-12 10:48 | DCINST_ITS ---
Discharge Instructions Diet Discharge Diet: No restrictions Activity Discharge Activity: Return to Normal Activity Weight Bearing Status: Weight bearing as tolerated Dressing / Incision Call your doctor if you observe: Fever of 101 or Higher, Numbness or Tingling, Shortness of breath, Dizziness, Chest pain, Increased palpitations (irregular heartbeat) and Calf discomfort Follow Up Care Please Follow Up With: Primary care provider When: Within the next two weeks. Test Results: Test results from this visit will be discussed in further detail at your follow-up appointment, if applicable. Discharge Plan Admission Admit Date/Time: 11/11/21 14:18 Primary Reason for Your Visit: GI bleed. Attending Provider: Lana Dan Primary Care Provider: Dar Waters Discharge Orders/Prescriptions Prescriptions: Continued atorvastatin 40 mg tablet 40 mg PO DAILY RF: 0 metformin 500 mg tablet 500 mg PO BID RF: 0 losartan-hydrochlorothiazide 50-12.5 mg tablet 1 tab PO DAILY RF: 0 Held Eliquis 5 mg tablet 5 mg PO BID RF: 0 Hold Instructions: Hold until you can follow up with your jewel setter. ibuprofen 200 mg Tablet 400 mg PO DAILY RF: 0 Hold Instructions: Resume on 11/26/21. Referrals / Follow Up: Dar Waters MD [Primary Care Provider] - Within 2 Weeks Lamine Mora DO [STAFF PHYSICIAN] - See Referral Note (Follow up in 6 months for repeat colonoscopy. Schedule appointment sooner, if needed. ) Disposition Disposition (needs filled in before D/C Order can be placed): Home, Self Care
--- NOTE | 2021-11-12 13:40 | PCM.DC.SUM ---
Documented by User: Dar REGALADO 11/12/21 13:48 Providers Date of Admission: 11/11/21 Primary Care Physician: Dr. Dar Waters MD Consultations 11/11/21 15:19 Consult: Gastroenterology Routine Consulting Provider: [facility] Reason for Consult: evaluation for lower GI bleed EMERGENT Consult: No MD Notified: Yes Date Notified: 11/11/21 Time Notified: 15:54 Method of Notification: Text Reason For Visit: SYNCOPE ACUTE BLOOD LOSS ANEMIA GI BLEED Diagnosis Discharge Diagnosis (1) Postoperative anemia due to acute blood loss: Status: Acute Code(s): D62 - Acute posthemorrhagic anemia (2) Syncope due to orthostatic hypotension: Status: Acute Code(s): I95.1 - Orthostatic hypotension (3) Acute GI bleeding: Status: Acute Code(s): K92.2 - Gastrointestinal hemorrhage, unspecified Medications at Discharge Home Medications atorvastatin 40 mg PO DAILY 10/22/21 metformin 500 mg PO BID 10/22/21 Eliquis 5 mg PO BID 11/11/21 ibuprofen 400 mg PO DAILY 11/11/21 losartan-hydrochlorothiazide 1 tab PO DAILY 11/11/21 Hospital Course Procedures Colonoscopy Summary of Care Provided Minutes Spent on Discharge: 35 Hospital Course: Patient is a 51-year-old male who was admitted to the hospital for evaluation and management of acute lower GI bleed in the setting of recent hemorrhoidectomy 1 week ago. Patient underwent suboptimal colonoscopy by Dr. Mora Which revealed moderate diverticulosis without diverticular bleed as well as mucosal ulceration which was biopsied, rest of study was unremarkable. Recommendations per GI are to discharge home, repeat colonoscopy in 6 weeks, advance diet as tolerated and to hold aspirin and NSAIDs for 2 weeks. Patient's Eliquis will also be held until patient can follow-up with his therapeutic recreation director. Vital signs and lab work were stable throughout admission and did not demonstrate any evidence of hemodynamic compromise. Patient is to follow-up with primary care provider within the next 2 weeks. Patient seen by Dar Loving PA-C, under the supervision of Dr. Dan. Physical Exam Narrative Patient is a 51-year-old male comfortably resting in bed after colonoscopy, alert and orient x3. Reports resolution of acute bleed. Denies development of any new symptoms overnight. Does not appear in acute distress. Const alert, oriented x3 and no apparent distress HEENT normocephalic, head/scalp atraumatic and hearing grossly normal bilaterally Eyes PERRL, EOMs intact bilaterally and conjunctivae normal Neck no lymphadenopathy, supple and no JVD Resp normal respiratory effort, no retractions, no use of accessory muscles and clear to auscultation bilaterally Cardio regular rate, regular rhythm, no murmurs and no JVD GI normal to inspection, nondistended, normoactive bowel sounds, soft to palpation and non-tender Extremity normal to inspection, full ROM and no clubbing, cyanosis or edema Skin no rashes or lesions noted, no wounds and skin turgor normal Neuro CN's II-XII intact bilaterally Psych affect normal Weight / BMI Weight Weight: 221 lb 12.56 oz Body Mass Index (BMI) 32.7 ABG / Lab / Microbiology Data Result Diagrams: 11/12/21 05:45 11/12/21 05:45 Laboratory: Laboratory Results - last 24 hr 11/11/21 16:27: POC Glucose 118 H 11/11/21 20:23: POC Glucose 97 11/12/21 05:45: WBC 6.4, RBC 2.99 L, Hgb 8.8 L, Hct 26.2 L, MCV 87.6, MCH 29.4, MCHC 33.6, RDW Std Deviation 41.2, RDW Coeff of Inderjit 13.1, Plt Count 181, MPV 10.4, Immature Gran % (Auto) 1.300 H, Neut % (Auto) 67.6, Lymph % (Auto) 19.4, [place] % (Auto) 9.4, Eos % (Auto) 1.7, Baso % (Auto) 0.6, Absolute Neuts (auto) 4.3, Absolute Lymphs (auto) 1.24, Nucleated RBC % 0 11/12/21 05:45: Sodium 142, Potassium 3.3 L, Chloride 105, Carbon Dioxide 28.0, Anion Gap 9, BUN 16, Creatinine 0.94, Estim Creat Clear Calc 92.97, Est GFR (MDRD) Af Amer 109, Est GFR (MDRD) Non-Af 90, BUN/Creatinine Ratio 17.1, Glucose 148 H, Calcium 7.9 L 11/12/21 05:45: PT 14.7, INR 1.2, APTT 30.1 11/12/21 05:45: Hemoglobin A1c 6.5 H 11/12/21 06:50: POC Glucose 142 H Microbiology: Microbiology 11/12/21 07:50 Nasal Secretion SARS-CoV-2 Antigen (Rapid) - Final D/C Instructions Discharge Diet: No restrictions Weight Bearing Status: Weight bearing as tolerated Call your doctor if you observe: Fever of 101 or Higher, Numbness or Tingling, Shortness of breath, Dizziness, Chest pain, Increased palpitations (irregular heartbeat) and Calf discomfort Please Follow Up With: Primary care provider When: Within the next two weeks. Meaningful Use Info Meaningful Use Diagnoses (Choose all that apply): None applicable Discharge Plan Admission Admit Date/Time: 11/11/21 14:18 Primary Reason for Your Visit: GI bleed. Attending Provider: Lana Dan Primary Care Provider: Dar Waters Discharge Orders/Prescriptions Prescriptions: Continued atorvastatin 40 mg tablet 40 mg PO DAILY RF: 0 metformin 500 mg tablet 500 mg PO BID RF: 0 losartan-hydrochlorothiazide 50-12.5 mg tablet 1 tab PO DAILY RF: 0 Held Eliquis 5 mg tablet 5 mg PO BID RF: 0 Hold Instructions: Hold until you can follow up with your therapeutic recreation director. ibuprofen 200 mg Tablet 400 mg PO DAILY RF: 0 Hold Instructions: Resume on 11/26/21. Referrals / Follow Up: Dar Waters MD [Primary Care Provider] - Within 2 Weeks Lamine Mora DO [STAFF PHYSICIAN] - See Referral Note (Follow up in 6 months for repeat colonoscopy. Schedule appointment sooner, if needed. ) Disposition Disposition (needs filled in before D/C Order can be placed): Home, Self Care Documented by User: Dr. Lana Dan MD 11/12/21 14:02 Providers Date of Admission: 11/11/21 Date of Discharge: 11/12/21 Reason For Visit: SYNCOPE ACUTE BLOOD LOSS ANEMIA GI BLEED Medications at Discharge Home Medications atorvastatin 40 mg PO DAILY 10/22/21 metformin 500 mg PO BID 10/22/21 Eliquis 5 mg PO BID 11/11/21 ibuprofen 400 mg PO DAILY 11/11/21 losartan-hydrochlorothiazide 1 tab PO DAILY 11/11/21 ABG / Lab / Microbiology Data Result Diagrams: 11/12/21 05:45 11/12/21 05:45 Discharge Plan Admission Admit Date/Time: 11/11/21 14:18 Primary Reason for Your Visit: GI bleed. Attending Provider: Lana Dan Primary Care Provider: Dar Waters Discharge Orders/Prescriptions Prescriptions: Continued atorvastatin 40 mg tablet 40 mg PO DAILY RF: 0 metformin 500 mg tablet 500 mg PO BID RF: 0 losartan-hydrochlorothiazide 50-12.5 mg tablet 1 tab PO DAILY RF: 0 Held Eliquis 5 mg tablet 5 mg PO BID RF: 0 Hold Instructions: Hold until you can follow up with your therapeutic recreation director. ibuprofen 200 mg Tablet 400 mg PO DAILY RF: 0 Hold Instructions: Resume on 11/26/21. Referrals / Follow Up: Dar Waters MD [Primary Care Provider] - Within 2 Weeks FriendLamine DO [STAFF PHYSICIAN] - See Referral Note (Follow up in 6 months for repeat colonoscopy. Schedule appointment sooner, if needed. ) Disposition Disposition (needs filled in before D/C Order can be placed): Home, Self Care Charges/Coding Addendum Addendum: This patient was seen in conjunction with SABINE Valdez. I have independently interviewed and examined the patient and reviewed pertinent historical, laboratory, and other data. Please refer to SABINE Valdez's note for his patient's presentation, findings, and recommendations. I have reviewed and his note and concur with his documentation 51-year-old male with past medical history of diverticulosis who comes in with presyncope and hematochezia. Patient was recently started on Eliquis. He also recently had hemorrhoidectomy on November 04. His hemoglobin on admission was 11.5, dropped from 14.5 recently. He underwent colonoscopy on 10/21 that showed moderate diverticulosis. His discharge hemoglobin was 8.8. No acute events overnight. Patient was discharged on oral iron, stool softeners, vitamin C and asked to follow-up with his therapeutic recreation director as well as with GI within 2 weeks. He was kept off his Eliquis. Visit Charges Inpatient E&M: 95162 Disch Hosp
== END 2021-11-12 10:52 | disposition home or self-care (01) ==
LOC: ED 12:25 → PCU 14:45
PROVIDERS: Anesthesiology; Internal Medicine Gastroenterology; Admitting Provider Hospitalist; Emergency Provider Emergency Medicine; PCP Family Medicine; Visit Provider Internal Medicine
PROC: 0DJD8ZZ Inspection of Lower Intestinal Tract, Via Natural or Artificial Opening Endoscopic (ICD-10-PCS; CPT 45378; principal; 2021-11-12 07:45)
DX: I95.1 Orthostatic hypotension (principal); D62 Acute posthemorrhagic anemia; K57.30 Diverticulosis of large intestine without perforation or abscess without bleeding; K63.3 Ulcer of intestine; I48.91 Unspecified atrial fibrillation; I69.398 Other sequelae of cerebral infarction; R20.9 Unspecified disturbances of skin sensation; E11.9 Type 2 diabetes mellitus without complications; Z79.84 Long term (current) use of oral hypoglycemic drugs; Z79.01 Long term (current) use of anticoagulants; Z79.1 Long term (current) use of non-steroidal anti-inflammatories (NSAID); Z79.899 Other long term (current) drug therapy; Z98.890 Other specified postprocedural states; I10 Essential (primary) hypertension; K92.1 Melena
CPT/HCPCS: 45380; 36415; 80048; 82962; 83036; 84484; 85025; 85610; 85730; 86850; 86900; 86901; 87426; 88305; 93005; 96361; 96365; 96366; 99218; 99285; J7030; J7120; G0378; J2405; J3490

== ENCOUNTER 2022-01-26 15:34 | Outpatient (CLI) | payer OTHER, SELFPAY ==
[2022-01-26 17:50] LABS: Absolute Neutrophil Count 3.4 X10^3/uL (2.0-7.7); Basophil# 0.05 X10^3/uL; Basophil% 0.9 % (0-1); Eosinophil# 0.08 X10^3/uL; Eosinophils% 1.4 % (0-5); Hematocrit 40.3 % (40-54); Hemoglobin 11.8 g/dL (13.0-16.5); Lymphocyte % 27.2 % (19-41); Mean Corp Hgb Conc 29.3 g/dL (32-36); Mean Corpuscular Hgb 22.1 pg (27.0-32.0); Mean Corpuscular Volume 75.3 fL (80-94); Mean Platelet Vol. 11.2 fl (6.2-12.0); Monocyte# 0.46 X10^3/uL; Monocyte% 8.3 % (0-10); NRBC Flagged by Analyzer 0 % (0-5); Neutrophil # 3.41 X10^3/uL (2.7-7.7); Neutrophil % 61.8 % (47-70); Platelet Count 287 K/mm3 (150-450); RBC Distribution Width CV 16.2 % (11.6-14.6); RBC Distribution Width SD 43.8 fl (35.1-43.9); Red Blood Count 5.35 M/mm3 (4.6-6.2); White Blood Count 5.5 K/mm3 (4.4-11.0)
[2022-01-26 18:22] LABS: ALB/GLOB Ratio 1.2 RATIO (0.9-2.4); AST(SGOT) 15 U/L (15-37); Alanine Aminotransfer ALT/SGPT 45 U/L (16-61); Albumin, Serum 3.8 g/dL (3.2-5.0); Alkaline Phosphatase 80 U/L (45-117); Anion Gap 7 (5-15); BUN 13 mg/dL (7-18); Calcium,Total 8.3 mg/dL (8.5-10.1); Chloride 106 mmol/L (98-107); Cholesterol 116 mg/dL (200); EST Glomerular Filtration Rate 84 mL/min (>60); Est Glom Filt Rate - Afr Amer 102 mL/min (>60); Ferritin 4 ng/mL (26-388); Globulin 3.3 g/dL (2.2-4.2); Glucose 112 mg/dL (74-106); High Density Lipoprotein 41 mg/dL; Iron 32 ug/dL (65-175); Iron Binding Capacity,Total 492 ug/dL (250-450); Potassium 3.7 mmol/L (3.5-5.1); Protein, Total 7.1 g/dL (6.4-8.2); Sodium Level 139 mmol/L (136-145); Triglycerides 165 mg/dL; Very Low Density Lipoprotein 33 mg/dL (5-40)
[2022-01-26 18:39] LABS: Microalbumin,Random Urine 5.2 mg/L (NO RANGE EST.); Microalbumin:Creatinine Ratio 5.7 mg/g CRE (<30 mg/g CRE)
[2022-01-26 18:42] LABS: Hemoglobin A1c 6.6 % (3.8-5.6)
== END 2022-01-26 23:59 | disposition home or self-care (01) ==
LOC: MFPLAB 15:35
PROVIDERS: PCP Family Medicine; Referring Provider Family Medicine; Visit Provider Family Medicine
DX: E11.9 Type 2 diabetes mellitus without complications (principal); D50.0 Iron deficiency anemia secondary to blood loss (chronic)
CPT/HCPCS: 36415; 80053; 80061; 82043; 82570; 82728; 83036; 83540; 83550; 85025

== ENCOUNTER → 2022-08-11 | Outpatient (CLI) | payer OTHER, SELFPAY ==
[2022-08-11 17:59] LABS: Absolute Lymphocyte Count 1.33 X10^3/uL (0.83-4.51); Absolute Neutrophil Count 4.9 X10^3/uL (2.0-7.7); Basophil# 0.04 X10^3/uL; Basophil% 0.6 % (0-1); Eosinophil# 0.06 X10^3/uL; Eosinophils% 0.9 % (0-5); Hematocrit 48.5 % (40-54); Hemoglobin 15.7 g/dL (13.0-16.5); Lymphocyte # 1.33 X10^3/ul (0.83-4.51); Lymphocyte % 19.4 % (19-41); Mean Corp Hgb Conc 32.4 g/dL (32-36); Mean Corpuscular Hgb 28.1 pg (27.0-32.0); Mean Corpuscular Volume 86.9 fL (80-94); Mean Platelet Vol. 11.1 fl (6.2-12.0); Monocyte# 0.49 X10^3/uL; Monocyte% 7.2 % (0-10); NRBC Flagged by Analyzer 0 % (0-5); Neutrophil % 71.5 % (47-70); Platelet Count 245 K/mm3 (150-450); RBC Distribution Width CV 15.1 % (11.6-14.6); RBC Distribution Width SD 47.8 fl (35.1-43.9); Red Blood Count 5.58 M/mm3 (4.6-6.2); White Blood Count 6.9 K/mm3 (4.4-11.0)
[2022-08-11 18:46] LABS: Hemoglobin A1c 6.2 % (3.8-5.6)
[2022-08-11 18:48] LABS: ALB/GLOB Ratio 1.1 RATIO (0.9-2.4); AST(SGOT) 20 U/L (15-37); Alanine Aminotransfer ALT/SGPT 56 U/L (16-61); Alkaline Phosphatase 86 U/L (45-117); Anion Gap 9 (5-15); BUN 18 mg/dL (7-18); BUN/Creat Ratio 15.9 RATIO (10-20); Chloride 105 mmol/L (98-107); Cholesterol 116 mg/dL (200); Creatinine, Serum 1.13 mg/dL (0.70-1.30); EST Glomerular Filtration Rate 72 mL/min (>60); Est Glom Filt Rate - Afr Amer 88 mL/min (>60); Globulin 3.6 g/dL (2.2-4.2); Glucose 142 mg/dL (74-106); High Density Lipoprotein 41 mg/dL; Potassium 4.4 mmol/L (3.5-5.1); Protein, Total 7.6 g/dL (6.4-8.2); Sodium Level 140 mmol/L (136-145); Triglycerides 111 mg/dL; Very Low Density Lipoprotein 22 mg/dL (5-40)
[2022-08-11 19:01] LABS: Microalbumin,Random Urine 5.8 mg/L (NO RANGE EST.); Microalbumin:Creatinine Ratio 8.1 mg/g CRE (<30 mg/g CRE)
== END | disposition home or self-care (01) ==
LOC: MFPLAB 15:01
PROVIDERS: PCP Family Medicine; Referring Provider Family Medicine; Visit Provider Family Medicine
DX: E11.9 Type 2 diabetes mellitus without complications (principal)
CPT/HCPCS: 36415; 80053; 80061; 82043; 82570; 83036; 85025

== ENCOUNTER → 2023-03-10 | Outpatient (CLI) | payer OTHER, SELFPAY ==
[2023-03-10 10:09] LABS: Hematocrit 46.6 % (40-54); Hemoglobin 15.1 g/dL (13.0-16.5); Mean Corp Hgb Conc 32.4 g/dL (32-36); Mean Corpuscular Hgb 29.3 pg (27.0-32.0); Mean Corpuscular Volume 90.5 fL (80-94); Mean Platelet Vol. 10.9 fl (6.2-12.0); Platelet Count 234 K/mm3 (150-450); RBC Distribution Width CV 13.2 % (11.6-14.6); RBC Distribution Width SD 43.3 fl (35.1-43.9); Red Blood Count 5.15 M/mm3 (4.6-6.2); White Blood Count 5.6 K/mm3 (4.4-11.0)
[2023-03-10 10:25] LABS: Albumin, Serum 3.8 g/dL (3.2-5.0); BUN 19 mg/dL (7-18); BUN/Creat Ratio 17.4 RATIO (10-20); Creatinine, Serum 1.09 mg/dL (0.70-1.30); EST Glomerular Filtration Rate 75 mL/min (>60); Est Glom Filt Rate - Afr Amer 91 mL/min (>60); Glucose 156 mg/dL (74-106); Protein, Total 6.8 g/dL (6.4-8.2)
[2023-03-10 10:26] LABS: ALB/GLOB Ratio 1.3 RATIO (0.9-2.4); AST(SGOT) 31 U/L (15-37); Alanine Aminotransfer ALT/SGPT 71 U/L (16-61); Alkaline Phosphatase 72 U/L (45-117); Anion Gap 2 (5-15); Chloride 109 mmol/L (98-107); Cholesterol 120 mg/dL (200); High Density Lipoprotein 36 mg/dL; Potassium 3.7 mmol/L (3.5-5.1); Sodium Level 138 mmol/L (136-145); Triglycerides 114 mg/dL; Very Low Density Lipoprotein 23 mg/dL (5-40)
[2023-03-10 11:09] LABS: Hemoglobin A1c 6.7 % (3.8-5.6)
== END | disposition home or self-care (01) ==
LOC: MFPLAB 08:18
PROVIDERS: Nurse Practitioner Family; PCP Family Medicine; Visit Provider Family Medicine
DX: E11.59 Type 2 diabetes mellitus with other circulatory complications (principal); Z86.73 Personal history of transient ischemic attack (TIA), and cerebral infarction without residual deficits
CPT/HCPCS: 36415; 80053; 80061; 83036; 85027

== ENCOUNTER → 2023-09-29 | Outpatient (CLI) | payer OTHER, SELFPAY ==
[2023-09-29 17:52] LABS: Absolute Lymphocyte Count 1.32 X10^3/uL (0.83-4.51); Absolute Neutrophil Count 4.6 X10^3/uL (2.0-7.7); Basophil# 0.05 X10^3/uL; Basophil% 0.8 % (0-1); Eosinophil# 0.11 X10^3/uL; Eosinophils% 1.7 % (0-5); Hematocrit 48.2 % (40-54); Hemoglobin 15.3 g/dL (13.0-16.5); Lymphocyte # 1.32 X10^3/ul (0.83-4.51); Lymphocyte % 20.3 % (19-41); Mean Corp Hgb Conc 31.7 g/dL (32-36); Mean Corpuscular Hgb 28.5 pg (27.0-32.0); Mean Corpuscular Volume 89.9 fL (80-94); Mean Platelet Vol. 10.4 fl (6.2-12.0); Monocyte# 0.44 X10^3/uL; Monocyte% 6.8 % (0-10); NRBC Flagged by Analyzer 0 % (0-5); Neutrophil # 4.57 X10^3/uL (2.7-7.7); Neutrophil % 70.1 % (47-70); Platelet Count 245 K/mm3 (150-450); RBC Distribution Width CV 13.2 % (11.6-14.6); Red Blood Count 5.36 M/mm3 (4.6-6.2); White Blood Count 6.5 K/mm3 (4.4-11.0)
[2023-09-29 18:33] LABS: Microalbumin,Random Urine 5.4 mg/L (NO RANGE EST.)
[2023-09-29 18:39] LABS: Hemoglobin A1c 6.3 % (3.8-5.6)
[2023-09-29 18:40] LABS: ALB/GLOB Ratio 1.1 RATIO (0.9-2.4); AST(SGOT) 17 U/L (15-37); Alanine Aminotransfer ALT/SGPT 52 U/L (16-61); Albumin, Serum 3.9 g/dL (3.2-5.0); Alkaline Phosphatase 72 U/L (45-117); Anion Gap 7 (5-15); BUN 16 mg/dL (7-18); BUN/Creat Ratio 16.3 RATIO (10-20); Calcium,Total 8.6 mg/dL (8.5-10.1); Chloride 106 mmol/L (98-107); Cholesterol 123 mg/dL (200); Creatinine, Serum 0.98 mg/dL (0.70-1.30); EST Glomerular Filtration Rate 85 mL/min (>60); Est Glom Filt Rate - Afr Amer 103 mL/min (>60); Globulin 3.5 g/dL (2.2-4.2); Glucose 124 mg/dL (74-106); High Density Lipoprotein 43 mg/dL; Magnesium 2.3 mg/dL (1.6-2.6); Potassium 3.9 mmol/L (3.5-5.1); Protein, Total 7.4 g/dL (6.4-8.2); Sodium Level 141 mmol/L (136-145); Thyroid Stim Hormone (TSH) 1.45 uIU/mL (0.358-3.74); Triglycerides 136 mg/dL; Very Low Density Lipoprotein 27 mg/dL (5-40)
== END | disposition home or self-care (01) ==
LOC: MFPLAB 15:58
PROVIDERS: PCP Family Medicine; Visit Provider Family Medicine
DX: E11.9 Type 2 diabetes mellitus without complications (principal); I48.91 Unspecified atrial fibrillation
CPT/HCPCS: 36415; 80053; 80061; 82043; 82570; 83036; 83735; 84443; 85025

== ENCOUNTER → 2024-05-01 | Outpatient (CLI) | payer OTHER, SELFPAY ==
[2024-05-01 17:43] LABS: Absolute Lymphocyte Count 1.75 X10^3/uL (0.83-4.51); Absolute Neutrophil Count 4.6 X10^3/uL (2.0-7.7); Basophil# 0.06 X10^3/uL; Basophil% 0.8 % (0-1); Eosinophil# 0.11 X10^3/uL; Eosinophils% 1.5 % (0-5); Hematocrit 45.9 % (40-54); Hemoglobin 15.6 g/dL (13.0-16.5); Lymphocyte # 1.75 X10^3/ul (0.83-4.51); Lymphocyte % 24.5 % (19-41); Mean Corpuscular Hgb 29.2 pg (27.0-32.0); Mean Platelet Vol. 10.6 fl (6.2-12.0); Monocyte# 0.63 X10^3/uL; Monocyte% 8.8 % (0-10); NRBC Flagged by Analyzer 0 % (0-5); Neutrophil # 4.56 X10^3/uL (2.7-7.7); Platelet Count 236 K/mm3 (150-450); RBC Distribution Width CV 12.9 % (11.6-14.6); Red Blood Count 5.34 M/mm3 (4.6-6.2); White Blood Count 7.1 K/mm3 (4.4-11.0)
[2024-05-01 18:09] LABS: Hemoglobin A1c 6.7 % (3.8-5.6)
[2024-05-01 18:28] LABS: ALB/GLOB Ratio 1.1 RATIO (0.9-2.4); AST(SGOT) 20 U/L (15-37); Alanine Aminotransfer ALT/SGPT 53 U/L (16-61); Albumin, Serum 3.9 g/dL (3.2-5.0); Alkaline Phosphatase 84 U/L (45-117); Anion Gap 8 (5-15); BUN 19 mg/dL (7-18); BUN/Creat Ratio 19.1 RATIO (10-20); Calcium,Total 8.9 mg/dL (8.5-10.1); Chloride 107 mmol/L (98-107); Cholesterol 105 mg/dL (200); EST Glomerular Filtration Rate 83 mL/min (>60); Est Glom Filt Rate - Afr Amer 101 mL/min (>60); Globulin 3.5 g/dL (2.2-4.2); Glucose 138 mg/dL (74-106); High Density Lipoprotein 37 mg/dL; Magnesium 2.3 mg/dL (1.6-2.6); Potassium 3.5 mmol/L (3.5-5.1); Protein, Total 7.4 g/dL (6.4-8.2); Sodium Level 139 mmol/L (136-145); Triglycerides 127 mg/dL; Very Low Density Lipoprotein 25 mg/dL (5-40)
== END | disposition home or self-care (01) ==
LOC: MFPLAB 16:59
PROVIDERS: PCP Family Medicine; Visit Provider Family Medicine
DX: E11.9 Type 2 diabetes mellitus without complications (principal); I48.91 Unspecified atrial fibrillation
CPT/HCPCS: 36415; 80053; 80061; 83036; 83735; 85025

== ENCOUNTER → 2024-11-29 | Outpatient (CLI) | payer OTHER, SELFPAY ==
[2024-11-29 17:58] LABS: Absolute Lymphocyte Count 1.97 X10^3/uL (0.83-4.51); Absolute Neutrophil Count 3.9 X10^3/uL (2.0-7.7); Basophil# 0.06 X10^3/uL; Basophil% 0.9 % (0-1); Eosinophil# 0.14 X10^3/uL; Eosinophils% 2.1 % (0-5); Hematocrit 48.6 % (40-54); Hemoglobin 16.3 g/dL (13.0-16.5); Hemoglobin A1c 7.8 % (3.8-5.6); Lymphocyte # 1.97 X10^3/ul (0.83-4.51); Lymphocyte % 29.7 % (19-41); Mean Corp Hgb Conc 33.5 g/dL (32-36); Mean Corpuscular Hgb 29.1 pg (27.0-32.0); Mean Corpuscular Volume 86.6 fL (80-94); Mean Platelet Vol. 10.9 fl (6.2-12.0); Monocyte# 0.56 X10^3/uL; Monocyte% 8.4 % (0-10); NRBC Flagged by Analyzer 0 % (0-5); Neutrophil # 3.85 X10^3/uL (2.7-7.7); Neutrophil % 58.1 % (47-70); Platelet Count 262 K/mm3 (150-450); RBC Distribution Width SD 40.2 fl (35.1-43.9); Red Blood Count 5.61 M/mm3 (4.6-6.2); White Blood Count 6.6 K/mm3 (4.4-11.0)
[2024-11-29 18:01] LABS: ALB/GLOB Ratio 1.2 RATIO (0.9-2.4); AST(SGOT) 27 U/L (15-37); Alanine Aminotransfer ALT/SGPT 76 U/L (16-61); Albumin, Serum 4.1 g/dL (3.2-5.0); Alkaline Phosphatase 87 U/L (45-117); Anion Gap 4 (5-15); BUN 20 mg/dL (7-18); BUN/Creat Ratio 19.4 RATIO (10-20); Chloride 106 mmol/L (98-107); Cholesterol 150 mg/dL (200); Creatinine, Serum 1.03 mg/dL (0.70-1.30); EST Glomerular Filtration Rate 80 mL/min (>60); Est Glom Filt Rate - Afr Amer 97 mL/min (>60); Globulin 3.3 g/dL (2.2-4.2); Glucose 147 mg/dL (74-106); High Density Lipoprotein 39 mg/dL; Magnesium 2.1 mg/dL (1.6-2.6); Potassium 4.1 mmol/L (3.5-5.1); Protein, Total 7.4 g/dL (6.4-8.2); Sodium Level 138 mmol/L (136-145); Triglycerides 259 mg/dL; Very Low Density Lipoprotein 52 mg/dL (5-40)
[2024-11-29 18:52] LABS: Microalbumin,Random Urine 16.4 mg/L (NO RANGE EST.); Microalbumin:Creatinine Ratio 6.6 mg/g CRE (<30 mg/g CRE)
== END | disposition home or self-care (01) ==
LOC: MFPLAB 15:32
PROVIDERS: PCP Family Medicine; Referring Provider Family Medicine; Visit Provider Family Medicine
DX: E11.8 Type 2 diabetes mellitus with unspecified complications (principal); I48.91 Unspecified atrial fibrillation

== ENCOUNTER → 2025-03-10 | Outpatient (CLI) | payer OTHER, SELFPAY ==
[2025-03-10 19:38] LABS: Hemoglobin A1c 6.4 % (<=5.6)
== END | disposition home or self-care (01) ==
LOC: MFPLAB 16:49
PROVIDERS: PCP Family Medicine; Referring Provider Family Medicine; Visit Provider Family Medicine
DX: E11.8 Type 2 diabetes mellitus with unspecified complications (principal)
CPT/HCPCS: 36415; 83036

== ENCOUNTER → 2025-07-01 | Outpatient (CLI) | payer OTHER, SELFPAY ==
--- NOTE | 2025-07-01 13:48 | RAD_ITS ---
PROCEDURE: FOOT MIN 3 VIEWS 07/01/2025 REASON FOR EXAM: PAIN, REDNESS TECHNIQUE: FOOT MIN 3 VIEWS Laterality: Right COMPARISON: No FINDINGS: Old 5th metatarsal fracture. Mild 1st MTP joint osteoarthritis. Posterior and plantar calcaneal spurs. No acute bone or soft tissue pathology. RAD/Foot min 3 Views IMPRESSION: No acute findings [facility]
== END | disposition home or self-care (01) ==
LOC: MTRAD 13:44
PROVIDERS: PCP Family Medicine
DX: L08.9 Local infection of the skin and subcutaneous tissue, unspecified (principal)
CPT/HCPCS: 73630

== ENCOUNTER → 2025-08-01 | Outpatient (CLI) | payer OTHER, SELFPAY ==
[2025-08-01 09:05] LABS: Squamous Epithelial Cells - UA 0 SEEN /hpf (0-5)
--- OUTSIDE RECORDS SUMMARY | 2025-08-01 09:33 | XMS RPT_ITS | CCD ---
Author Organization [facility] Care Team Providers Care Fire Warden Name Role Phone Abraham Coker Primary Care Provider Toña PARSONS, Mauro Unavailable ABRAHAM COKER Primary Care UnavailJOSE Avendaño Attending Unavailable ABRAHAM COKER Primary Care UnavailJOSE Avendaño Referring Unavailable Abraham Coker Primary Care Provider Toña PARSONS, Mauro Unavailable Abraham Coker MD Primary Care Provider Toña PARSONS, Mauro Unavailable Dr. Abraham Coker MD Primary Care Provider Dr. Abraham Coker MD Attending Provider Dr. Abraham Coker MD Referring Provider [phone] Minerva Mak Attending Provider Dr. Abraham Coker MD Primary Care Provider Dr. Abraham Coker MD Attending Provider Dr. Abraham Coker MD Referring Provider Kianna LÓPEZ-Tito Guy Attending Provider Kianna HARNESS PULLER-CTito Referring Provider Abraham Coker Primary Care Unavailable Abraham Coker Attending Unavailable Abraham Coker Referring Unavailable Abraham Coker Primary Care Unavailable Tovaorrow Tito LÓPEZ Attending Unavailable Kianna HARNESS PULLERTito Referring Unavailable Abraham Coker Primary Care Unavailable Abraham Coker Attending Unavailable Abraham Coker Referring Unavailable Abraham Coker Primary Care Unavailable Minerva Gómez NP Attending Unavailable Abraham Coker Referring Unavailable Eric Espinoza Attending Unavailable Abraham Coker Primary Care Unavailable Abraham Coker Referring Unavailable Medications Current Medications Medication Drug Class(es) Dates Sig (Normalized) Sig (Original) atorvastatin 40 mg oral tablet (10 sources) HMG-CoA Reductase Inhibitor Start: 06-15-2021 take 1 tablet by mouth once daily Atorvastatin 40 mg tablet Active 40 mg PO DAILY October 22, 2021 1:00am CHOLESTEROL Comment on above: Take 40 mg by mouth once daily. hydroCHLOROthiazide 12.5 mg / losartan potassium 50 mg oral tablet (4 sources) Thiazide Diuretic, Angiotensin 2 Receptor Sridhar Start: 11-11-2021 Losartan-Hydrochl orothiazide 50-12.5 mg tablet Active 1 {tbl} PO DAILY November 11, 2021 1:00am blood pressure Start: 11-11-2021 take 1 tablet by chantale th once daily Losartan-Hydrochlorothiazide Active 1 TA BLET PO DAILY November 11, 2021 12:00am perflutren lipid microsphere s 1.3 mL in NaCl (PF) 0.9% 10 mL injection (DEFINITY) (9 sources) Start: 12-29-2021 End: 03-30-2023 perflutren lipid microsphere s 1.3 mL in NaCl (PF) 0.9% 10 mL injection (DEFINITY) Start: 10-27-2021 End: 01-26-2023 perflutren lipid microsphere s 1.3 mL in NaCl (PF) 0.9% 10 mL injection (DEFINITY) 125 ml sodium chloride 9 mg/ ml prefilled syringe (9 sources) Start: 10-27-2021 End: 03-30-2023 sodium chloride 0.9 % (flush ) 10 mL (BD POSIFLUSH) Tirzepatide (Mounjaro) 5 mg/ 0.5 mL pen injector (2 sources) Start: 02-25-2025 Tirzepatide (M ounjaro) 5 mg/0.5 mL pen injector Active 5 mg SC EVERY WEEK February 25, 2025 12:00am Completed/Discontinued Medications Medication Drug Class(es) Dates Sig (Normalized) Sig (Original) apixaban 5 mg oral tablet (18 sources) Factor Xa Inhibitor Start: 11-11-2021 End: 02-25-2025 take 1 tablet by mouth twice daily Apixaban (Eliquis) 5 mg tablet Discontinued 5 mg PO TWICE A DAY 60 July 17, 2024 11:06am February 25, 2025 8:44am blood thinner Comment on above: Take 1 tablet by chantale th twice daily. TAKE 1 TABLET TWICE A DAY ibuprofen 200 mg oral tablet (7 sources) Nonsteroidal Anti-inflammatory Drug Start: 11-11-2021 ibuprofen (MOTRIN) 200 mg tablet Take 200 mg by mouth as needed. 0 11/11/2021 Active Start: 11-11-2021 End: 02-25-2025 take 2 tablets by mouth once daily Ibuprofen 200 mg Tablet Discontinued 400 mg PO DAILY November 11, 2021 1:00am February 25, 2025 8:35am PAIN On Hold: Resume on 11/26/21. Start: 11-11-2021 take 400 mg by mouth once manuel y Ibuprofen Active 400 MG PO DAILY November 11, 2021 12:00am Comment on above: Take 200 mg by mouth as needed. losartan potassium 50 mg oral tablet (5 sources) Angiotensin 2 Receptor Sridhar Start: 2 End: 3 take 1 tablet by mouth once daily losartan (COZAAR) 50 mg tablet Take 1 tablet by mouth once daily. 90 tablet 3 03/15/2022 Active Comment on above: Take 1 tablet by chantale once daily. metFORMIN hydrochloride 500 mg oral tablet (10 sources) Biguanide Start: 1 End: 5 take 1 tablet by mouth twice daily Metformin 500 mg tablet Discontinued 500 mg PO TWICE A DAY October 22, 2021 1:00am February 25, 2025 8:35am DM Start: 06-08-2021 take 2 tablets by mo [facility] [place] once daily at breakfast metFORMIN (GLUCOPHAGE) 500 mg tablet Take 1,000 mg by mouth daily with breakfast. 0 06/08/2021 Active Comment on above: Take 1,000 mg by chantale daily with breakfast. 24 hr metoprolol succinate 25 mg extended release oral tablet (6 sources) beta-Adrenergic Sridhar take 1 tablet by mouth once daily metoprolol succinate ER (TOPROL XL) 25 mg 24 hr tablet Take 25 mg by mouth once daily. 0 Active Comment on above: Take 25 mg by mouth once daily. Problems Active Problems Problem Classification Problem Date Documented Da te Episodic/Chronic Acute cerebrovascular disease (6 sources) Cerebrovascular accident; Translations: [Cerebral infarction, unspecified] Onset: 1 10-22-2021 Chronic Acute posthemorrhagic anemia (4 sources) Anemia following acute postoperative blood loss; Translations: [Acute posthemorrhagic anemia] 11-20-2021 Episodic Cardiac dysrhythmias (18 sources) Atrial flutter; Translations: [Unspecified atrial flutter] Onset: 1 10-22-2021 Chronic Cardiac dysrhythmias (4 sources) Palpitations; Translations: [Palpitations] 10-30-2021 Episodic Diabetes mellitus with complications (1 source) Type 2 diabetes mellitus with unspecified complications; Translations: [Type 2 diabetes mellitus with unspecified complications] Onset: Chronic Diabetes mellitus without complication (8 sources) Diabetes mellitus; Translations: [Type 2 diabetes mellitus without complications] Onset: 1 10-22-2021 Chronic Disorders of lipid metabolism (6 sources) Mixed hyperlipidemia; Translations: [Mixed hyperlipidemia] Onset: 1 10-22-2021 Chronic Essential hypertension (3 sources) Hypertensive disorder; Translations: [Essential (primary) hypertension] 07-16-2024 Chronic Gastrointestinal hemorrhage (4 sources) Acute gastrointestinal hemorrhage; Translations: [Gastrointestinal hemorrhage, unspecified] 11-20-2021 Episodic Other circulatory disease (9 sources) History of cerebrovascular accident; Translations: [Personal history of transient ischemic attack (TIA), and cerebral infarction without residual deficits] Onset: 1 10-27-2021 Episodic Other circulatory disease (4 sources) Syncope due to orthostatic hypotension; Translations: [Orthostatic hypotension] 11-20-2021 Episodic Other connective tissue disease (3 sources) Suspected respiratory disease; Translations: [Other symptoms and signs involving the nervous system] 06-06-2024 Episodic Other nutritional; endocrine; and metabolic disorders (6 sources) Body mass index 30+ - obesity; Translations: [Obesity, unspecified] Onset: 1 10-22-2021 Chronic Other nutritional; endocrine; and metabolic disorders (6 sources) Obese class I; Translations: [Obesity, unspecified] Onset: 1 10-27-2021 Chronic Skin and subcutaneous tissue infections (1 source) Local infection of the skin and subcutaneous tissue, unspecified; Translations: [Local infection of the skin and subcutaneous tissue, unspecified] Onset: 5 Episodic Syncope (4 sources) Near syncope; Translations: [Syncope and collapse] 11-20-2021 Episodic Past or Other Problems Problem Classification Problem Date Documented Da te Episodic/Chronic Hemorrhoids (6 sources) Hemorrhoids; Translations: [Unspecified hemorrhoids] Onset: 10-22-2021 10-22-2021 Episodic Other circulatory disease (6 sources) Elevated blood-pressure reading without diagnosis of hypertension; Translations: [Elevated blood-pressure reading, without diagnosis of hypertension] Onset: 10-27-2021 10-27-2021 Episodic Results Test Name Value Interpretation Reference Range Facility Foot min 3 Viewson 5 Foot min 3 Views [facility] Imaging Services [address] [place] [address] [id number] Foot min 3 Views MR#: [id number] Acct: [id number] Name: INDIGO MARTINEZ Rep #: [id number] : 1970 M 54 From: Abelardo Browning MD PCP: Dr. Abraham Coker MD Status: REG CLI Study: Foot min 3 Views Date of Exam: 07/01/25 Exam# [id number] Ordering Dr: Tito Hutchison NP, NP -Brooks PROCEDURE: FOOT MIN 3 VIEWS 07/01/2025 REASON FOR EXAM: PAIN, REDNESS TECHNIQUE: FOOT MIN 3 VIEWS Laterality: Right COMPARISON: No FINDINGS: Old 5th metatarsal fracture. Mild 1st MTP joint osteoarthritis. Posterior and plantar calcaneal spurs. No acute bone or soft tissue pathology. RAD/Foot min 3 Views IMPRESSION: No acute findings Reading Location: [id number] CC: Tito LÓPEZ NP-Brooks Hutchison; Dr. Abraham Coker MD Community Service Officer Coordinator: Signed Normal [facility] Hemoglobin A1con 03-10-2025 HbA1c (Bld) [Mass fraction] 6.4 % High <=5.6 [facility] Comment on above: Result Comment: Norm al < 5.7 % Prediabetic 5.7 - 6.4 % Diabetic >or= 6.5 % Please note range changes. Performed By: #### L 501.9985 ####[facility] [id number] [place], [address] Hemoglobin A1c percentageOrd ered By: Abraham Coker on 03-10-2025 HbA1c (Bld) [Mass fraction] 6.4 % High <5.7 [facility] Comment on above: Normal < 5.7 % Predi abetic 5.7 - 6.4 % Diabetic >or= 6.5 % Please note range changes. Cardiology Visit Reporton Cardiology Visit Report [facility] [address] [place] [address] OFFICE VISIT Date of Service: 02/25/25 MR#: [id number] Acct: [id number] Name: INDIGO MARTINEZ Nery Rep #: [id number] : 1970 Provider: DADA styles Age/Sex: 54/M Location: [facility] Status: Signed HPI HPI History of Present Illness Details: Patient is a 54-year-old white male who presents to the office today for cardiovascular follow-up visit. He has a history of CVA back in August 2020. He comes in after having been diagnosed with paroxysmal atrial fibrillation several months later when he was scheduled for hemorrhoid surgery. He was totally asymptomatic with the atrial fibrillation and in retrospect was probably the etiology of his otherwise unexplained stroke back in [place]. He has no significant residual from his stroke. The patient does have a history of diabetes on metformin hemoglobin A1c runs between 5.5 and 6.5 he also has a history of hypertension which is well-controlled on his current medical therapy. The patient's [id number] score is 4 which gives him a 4% risk of stroke per year. However, he has had 1 to 2% burden of atrial fibrillation on his last 2 - 30-day event recorder's. Given this low level of atrial fibrillation we may have the opportunity of monitoring this with a wearable device in the future should he develop issues with utilization of Eliquis. Patient's echocardiogram done October 2021 at the time he was originally diagnosed with atrial fibrillation showed minimal dilation of the left ventricle with an ejection fraction of 50%. There was grade 1 left ventricular diastolic dysfunction the right ventricle was normal in size and function the left atrial cavity was mildly dilated the right atrial cavity was dilated. From a cardiac standpoint, the patient is doing well. He denies any palpitations, chest pain, pressure or heaviness. He denies SOB, Orthopnea, and PND. He does not have bleeding issues; no blood in urine, stool, or nosebleeds. He denies any decrease in energy level, myalgias, or claudication. He does not have edema, or sudden weight gain. He denies lightheadedness, dizziness, syncopal or near syncopal episodes, and headaches. 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 Is patient in pain?: No Allergies No Known Allergies Allergy (Verified 02/25/25 08:40) Medications ???Medication ???Instructions ???Recorded ???Confirmed ???Type atorvastatin 40 mg tablet 40 mg PO DAILY CHOLESTEROL 1 02/25/25 History losartan 50 mg-hydrochlorothiazide 1 tab PO DAILY blood pressure 02/25/25 History 12.5 mg tablet apixaban 5 mg tablet (Eliquis) 5 mg PO BID blood thinner #180 tab s 02/25/25 02/25/25 Rx tirzepatide 5 mg/0.5 mL 5 mg subcut QWEEK 02/25/25 5 History subcutaneous pen injector (Mounjaro) Have you fallen in the past year?: No PFSH Medical History Suspected sleep apnea Atrial fibrillation Diverticulitis Diabetes Acute hemorrhoid History of stroke Surgical History H/O: hemorrhoidectomy Social History Smoking Status: Never smoker alcohol intake: current substance use type: other details: marijuana gummies caffeine: Yes ROS Const Const: Negative for fatigue, weakness, headache(s) or frequent falls Eyes Eyes: Negative for blurry vision ENT ENT: Negative for headache(s), dizziness or Nosebleed/epistaxis Cardio Chest Pain: No Palpitations: No Edema: None Muscle aches with walking: None Resp Respiratory: Negative for SOB with activity, SOB at rest or SOB orthopnea SOB lying down GI GI: Negative nausea, vomiting, heartburn, bright, red blood in stools or black,tarry stools : Negative for hematuria Neuro Neuro: Negative for dizziness, lightheadedness, near syncope, syncope, frequent falls, headache(s), weakness or blurry vision Endo Endo: Negative for fatigue Cardiology Exam Const Appearance: cooperative, healthy appearing, comfortable, no acute distress, well developed and well groomed Head Head: normal to inspection Eyes General: appearance normal, both eyes and all related structures Neck Neck: normal visual inspection and no JVD Carotids: Negative bruit Chest Chest inspection: normal inspection of the chest Auscultation: Bilateral: Clear to Auscultation Cardio (more content not included)... Normal [facility] Absolute neutrophil countOrd ered By: Abraham Coker on 11-29-2024 Neutrophils (Bld) [#/Vol] 3.9 10*3/uL 2.0-7.7 [facility] Albumin to globulin ratioOrd ered By: Abraham Coker on 11-29-2024 Albumin/Globulin [Mass ratio] 1.2 {ratio} 0.9-2.4 [facility] Basophil percentageOrdered B y: Abraham Coker on 11-29-2024 Basophils/100 WBC (Bld) 0.9 % 0-1 [facility] Bilirubin, totalOrdered By: Abraham Coker on 11-29-2024 Bilirubin [Mass/Vol] 0.80 mg/dL 0.20-1.00 [facility] Comment on above: For patients on eltr ombopag therapy, use of Dimension [place] TBIL is not recommended. Blood urea nitrogen (BUN)/cr eatinine ratioOrdered By: Abraham Coker on 11-29-2024 Urea nitrogen/Creatinine [Mass ratio] 19.4 mg/mg 09-08 [facility] CBC W/Diff, Automatedon 11-20 Absolute Lymph 1.97 X10 3/uL Normal 0.83-4.51 [facility] Comment on above: Order Comment: Order Date: 11/29/24 Order Info: [id number] - CBCD Performed By: #### L 100.0100, L500.4100, L501.5200, L501.9985, L502.0250, L500.4050 #### [facility] [address] [place], [address] Absolute Neut 3.9 X10 3/uL Normal 2.0-7.7 [facility] Comment on above: Order Comment: Order Date: 11/29/24 Order Info: [id number] - CBCD Performed By: #### L 100.0100, L500.4100, L501.5200, L501.9985, L502.0250, L500.4050 #### [facility] [address] [place], [place], [phone] (590) Basophils/100 WBC (Bld) 0.9 % Normal 0-1 [facility] Comment on above: Order Comment: Order Date: 11/29/24 Order Info: [id number] - CBCD Performed By: #### L 100.0100, L500.4100, L501.5200, L501.9985, L502.0250, L500.4050 #### [facility] [address] [place], [place], [phone] (208) Eosinophils/100 WBC (Bld) 2.1 % Normal 0-5 [facility] Comment on above: Order Comment: Order Date: 11/29/24 Order Info: [id number]- - CBCD Performed By: #### L 100.0100, L500.4100, L501.5200, L501.9985, L502.0250, L500.4050 #### [facility] [address] [place], [place], [id number] Erythrocyte distribution width (RBC) [Ratio] 13.0 % Normal 11.6-14.6 [facility] Comment on above: Order Comment: Order Date: 11/29/24 Order Info: [id number] - CBCD Performed By: #### L 100.0100, L500.4100, L501.5200, L501.9985, L502.0250, L500.4050 #### [facility] [address] [place], [place], [phone] Hematocrit (Bld) [Volume fraction] 48.6 % Normal 40-54 [facility] Comment on above: Order Comment: Order Date: 11/29/24 Order Info: [id number] - CBCD Performed By: #### L 100.0100, L500.4100, L501.5200, L501.9985, L502.0250, L500.4050 #### [facility] [address] [place], [place], [phone] Hemoglobin (Bld) [Mass/Vol] 16.3 g/dL Normal 13.0-16.5 [facility] Comment on above: Order Comment: Order Date: 11/29/24 Order Info: [id number] - CBCD Performed By: #### L 100.0100, L500.4100, L501.5200, L501.9985, L502.0250, L500.4050 #### [facility] [address] [place], [address] IG% 0.800 Normal 0.0-0.9 [facility] Comment on above: Order Comment: Order Date: 11/29/24 Order Info: [id number] - CBCD Result Comment: IG% - Immature Granulocytes (promyelocytes, myelocytes and metamyelocytes) > 1% indicates that a LEFT SHIFT is Present. Performed By: #### L 100.0100, L500.4100, L501.5200, L501.9985, L502.0250, L500.4050 #### [facility] [address] [place], [address] Lymphocytes/100 WBC (Bld) 29.7 % Normal 19-41 [facility] Comment on above: Order Comment: Order Date: 11/29/24 Order Info: 018- - CBCD Performed By: #### L 100.0100, L500.4100, L501.5200, L501.9985, L502.0250, L500.4050 #### [facility] [address] [place], [address] MCH (RBC) [Entitic mass] 29.1 pg Normal 27.0-32.0 [facility] Comment on above: Order Comment: Order Date: 11/29/24 Order Info: [id number] - CBCD Performed By: #### L 100.0100, L500.4100, L501.5200, L501.9985, L502.0250, L500.4050 #### [facility] [address] [place], [address] MCHC (RBC) [Mass/Vol] 33.5 g/dL Normal 32-36 [facility] Comment on above: Order Comment: Order Date: 11/29/24 Order Info: [id number] - CBCD Performed By: #### L 100.0100, L500.4100, L501.5200, L501.9985, L502.0250, L500.4050 #### [facility] [address] [place], [address] MCV (RBC) [Entitic vol] 86.6 fL Normal 80-94 [facility] Comment on above: Order Comment: Order Date: 11/29/24 Order Info: [id number] - CBCD Performed By: #### L 100.0100, L500.4100, L501.5200, L501.9985, L502.0250, L500.4050 #### [facility] [address] [place], [address] Monocytes/100 WBC (Bld) 8.4 % Normal 0-10 [facility] Comment on above: Order Comment: Order Date: 11/29/24 Order Info: [id number] - CBCD Performed By: #### L 100.0100, L500.4100, L501.5200, L501.9985, L502.0250, L500.4050 #### [facility] [address] [place], [address] Neutrophils/100 WBC (Bld) 58.1 % Normal 47-70 [facility] Comment on above: Order Comment: Order Date: 11/29/24 Order Info: [id number] - CBCD Performed By: #### L 100.0100, L500.4100, L501.5200, L501.9985, L502.0250, L500.4050 #### [facility] [address] [place], [address] Nucleated RBC (Bld) [#/Vol] 0 10*3/uL Normal 0-5 [facility] Comment on above: Order Comment: Order Date: 11/29/24 Order Info: [id number] - CBCD Performed By: #### L 100.0100, L500.4100, L501.5200, L501.9985, L502.0250, L500.4050 #### [facility] [address] [place], [address] Platelet mean volume (Bld) [Entitic vol] 10.9 fL Normal 6.2-12.0 [facility] Comment on above: Order Comment: Order Date: 11/29/24 Order Info: [id number] - CBCD Performed By: #### L 100.0100, L500.4100, L501.5200, L501.9985, L502.0250, L500.4050 #### [facility] [address] [place], [address] Platelets (Bld) [#/Vol] 262 10*3/uL Normal 150-450 [facility] Comment on above: Order Comment: Order Date: 11/29/24 Order Info: [id number] - CBCD Performed By: #### L 100.0100, L500.4100, L501.5200, L501.9985, L502.0250, L500.4050 #### [facility] [address] [place], [address] RBC (Bld) [#/Vol] 5.61 10*6/uL Normal 4.6-6.2 [facility] Comment on above: Order Comment: Order Date: 11/29/24 Order Info: [id number] - CBCD Performed By: #### L 100.0100, L500.4100, L501.5200, L501.9985, L502.0250, L500.4050 #### [facility] [address] [place], [address] RDW SD 40.2 fl Normal 35.1-43.9 [facility] Comment on above: Order Comment: Order Date: 11/29/24 Order Info: [id number] - CBCD Performed By: #### L 100.0100, L500.4100, L501.5200, L501.9985, L502.0250, L500.4050 #### [facility] [address] [place], [address] WBC (Bld) [#/Vol] 6.6 10*3/uL Normal 4.4-11.0 [facility] Comment on above: Order Comment: Order Date: 11/29/24 Order Info: [id number] - CBCD Performed By: #### L 100.0100, L500.4100, L501.5200, L501.9985, L502.0250, L500.4050 #### [facility] [address] [place], [place], [address] Carbon dioxide measurementOr dered By: Abraham Coker on 11-29-2024 CO2 [Moles/Vol] 27.0 mmol/L 21.0-32.0 [facility] Chloride measurementOrdered By: Abraham Coker on 11-29-2024 Chloride [Moles/Vol] 106 mmol/L 98-107 [facility] Comprehensive Metabolic Prof ilon 11-29-2024 Albumin [Mass/Vol] 4.1 g/dL Normal 3.2-5.0 [facility] Comment on above: Order Comment: Order Date: 11/29/24 Order Info: [id number] - CMP Order Info: [id number] - LIPID Order Info: [id number] - MG Performed By: #### L 100.0100, L500.4100, L501.5200, L501.9985, L502.0250, L500.4050 #### [facility] [address] [place], [place], [address] Albumin/Globulin [Mass ratio] 1.2 {ratio} Normal 0.9-2.4 [facility] Comment on above: Order Comment: Order Date: 11/29/24 Order Info: [id number] - CMP Order Info: [id number] - LIPID Order Info: [id number] - MG Performed By: #### L 100.0100, L500.4100, L501.5200, L501.9985, L502.0250, L500.4050 #### [facility] [address] [place], [address] ALK P 87 U/L Normal 45-117 [facility] Comment on above: Order Comment: Order Date: 11/29/24 Order Info: [id number] - CMP Order Info: [id number] - LIPID Order Info: [id number] - MG Performed By: #### L 100.0100, L500.4100, L501.5200, L501.9985, L502.0250, L500.4050 #### [facility] [address] [place], [address] ALT [Catalytic activity/Vol] 76 U/L High 16-61 [facility] Comment on above: Order Comment: Order Date: 11/29/24 Order Info: [id number] - CMP Order Info: [id number] - LIPID Order Info: [id number] - MG Performed By: #### L 100.0100, L500.4100, L501.5200, L501.9985, L502.0250, L500.4050 #### [facility] [address] [place], [address] AST [Catalytic activity/Vol] 27 U/L Normal 15-37 [facility] Comment on above: Order Comment: Order Date: 11/29/24 Order Info: [id number] - CMP Order Info: [id number] - LIPID Order Info: [id number] - MG Result Comment: Slig ht Hemolysis, Result may be falsely increased. Performed By: #### L 100.0100, L500.4100, L501.5200, L501.9985, L502.0250, L500.4050 #### [facility] [address] [place], [place], [id number] Bilirubin [Mass/Vol] 0.80 mg/dL Normal 0.20-1.00 [facility] Comment on above: Order Comment: Order Date: 11/29/24 Order Info: [id number] - CMP Order Info: [id number] - LIPID Order Info: [id number] - MG Result Comment: For patients on eltrombopag therapy, use of Dimension [place] TBIL is not recommended. Performed By: #### L 100.0100, L500.4100, L501.5200, L501.9985, L502.0250, L500.4050 #### [facility] [address] [place], [address] BUN/CRE 19.4 RATIO Normal 10-20 [facility] Comment on above: Order Comment: Order Date: 11/29/24 Order Info: [id number] - CMP Order Info: [id number] - LIPID Order Info: [id number] - MG Performed By: #### L 100.0100, L500.4100, L501.5200, L501.9985, L502.0250, L500.4050 #### [facility] [address] [place], [address] CA,Total 9.0 mg/dL Normal 8.5-10.1 [facility] Comment on above: Order Comment: Order Date: 11/29/24 Order Info: [id number] - CMP Order Info: [id number] - LIPID Order Info: [id number] - MG Performed By: #### L 100.0100, L500.4100, L501.5200, L501.9985, L502.0250, L500.4050 #### [facility] [address] [place], [address] Chloride [Moles/Vol] 106 mmol/L Normal 98-107 [facility] Comment on above: Order Comment: Order Date: 11/29/24 Order Info: 0786- - CMP Order Info: [id number] - LIPID Order Info: [id number] - MG Performed By: #### L 100.0100, L500.4100, L501.5200, L501.9985, L502.0250, L500.4050 #### [facility] [address] [place], [address] CO2 [Moles/Vol] 27.0 mmol/L Normal 21.0-32.0 [facility] Comment on above: Order Comment: Order Date: 11/29/24 Order Info: [id number] - CMP Order Info: [id number] - LIPID Order Info: [id number] - MG Performed By: #### L 100.0100, L500.4100, L501.5200, L501.9985, L502.0250, L500.4050 #### [facility] [address] [place], [address] Creatinine [Mass/Vol] 1.03 mg/dL Normal 0.70-1.30 [facility] Comment on above: Order Comment: Order Date: 11/29/24 Order Info: [id number] - CMP Order Info: [id number] - LIPID Order Info: [id number] - MG Result Comment: The validity of the calculated GFR GFRAA in patients over 70 years has not been determined. Clinical correlation is essential. Performed By: #### L 100.0100, L500.4100, L501.5200, L501.9985, L502.0250, L500.4050 #### [facility] [address] [place], [place], [id number] EST GFR - AA 97 mL/min Normal >60 [facility] Comment on above: Order Comment: Order Date: 11/29/24 Order Info: 0786- - CMP Order Info: [id number] - LIPID Order Info: [id number] - MG Result Comment: Afri can Canadian GFR Calc Performed By: #### L 100.0100, L500.4100, L501.5200, L501.9985, L502.0250, L500.4050 #### [facility] [address] [place], [place], [id number] GAP 4 Low 5-15 [facility] Comment on above: Order Comment: Order Date: 11/29/24 Order Info: [id number] - CMP Order Info: [id number] - LIPID Order Info: [id number] - MG Performed By: #### L 100.0100, L500.4100, L501.5200, L501.9985, L502.0250, L500.4050 #### [facility] [address] [place], [place], [address] GFR/1.73 sq M.predicted among non-blacks MDRD (S/P/Bld) [Vol rate/Area] 80 mL/min/{1.73_m2} Normal >60 [facility] Comment on above: Order Comment: Order Date: 11/29/24 Order Info: [id number] - CMP Order Info: [id number] - LIPID Order Info: [id number] - MG Result Comment: Non- GFR Calc Performed By: #### L 100.0100, L500.4100, L501.5200, L501.9985, L502.0250, L500.4050 #### [facility] [address] [place], [address] Globulin (S) [Mass/Vol] 3.3 g/dL Normal 2.2-4.2 [facility] Comment on above: Order Comment: Order Date: 11/29/24 Order Info: 07 - CMP Order Info: [id number] - LIPID Order Info: [id number] - MG Performed By: #### L 100.0100, L500.4100, L501.5200, L501.9985, L502.0250, L500.4050 #### [facility] [address] [place], [address] Glucose [Mass/Vol] 147 mg/dL High 74-106 [facility] Comment on above: Order Comment: Order Date: 11/29/24 Order Info: 07 - CMP Order Info: - LIPID Order Info: [id number] - MG Result Comment: Fast ing Glucose result greater than or equal to 126 mg/dL suggests DIABETES MELLITUS per A.D.A. criteria. Performed By: #### L 100.0100, L500.4100, L501.5200, L501.9985, L502.0250, L500.4050 #### [facility] [address] [place], [address] Potassium [Moles/Vol] 4.1 mmol/L Normal 3.5-5.1 [facility] Comment on above: Order Comment: Order Date: 11/29/24 Order Info: [id number] - CMP Order Info: [id number] - LIPID Order Info: [id number] - MG Result Comment: Slig ht Hemolysis, Result may be falsely increased. Performed By: #### L 100.0100, L500.4100, L501.5200, L501.9985, L502.0250, L500.4050 #### [facility] [address] [place], [address] Sodium [Moles/Vol] 138 mmol/L Normal 136-145 [facility] Comment on above: Order Comment: Order Date: 11/29/24 Order Info: [id number] - CMP Order Info: [id number] - LIPID Order Info: [id number] - MG Performed By: #### L 100.0100, L500.4100, L501.5200, L501.9985, L502.0250, L500.4050 #### [facility] [address] [place], [address] T PROT 7.4 g/dL Normal 6.4-8.2 [facility] Comment on above: Order Comment: Order Date: 11/29/24 Order Info: 0786- - CMP Order Info: [id number] - LIPID Order Info: [id number] - MG Performed By: #### L 100.0100, L500.4100, L501.5200, L501.9985, L502.0250, L500.4050 #### [facility] [address] [place], [address] Urea nitrogen [Mass/Vol] 20 mg/dL High 7-18 [facility] Comment on above: Order Comment: Order Date: 11/29/24 Order Info: [id number] - CMP Order Info: [id number] - LIPID Order Info: [id number] - MG Performed By: #### L 100.0100, L500.4100, L501.5200, L501.9985, L502.0250, L500.4050 #### [facility] [address] [place], [address] Eosinophil percentageOrdered By: Abraham Coker on 11-29-2024 Eosinophils/100 WBC (Bld) 2.1 % 0-5 [facility] Erythrocyte distribution wid th (RBC) [Ratio]Ordered By: Abraham Coker on 11-29-2024 Erythrocyte distribution width (RBC) [Entitic vol] 40.2 fL 35.1-43.9 [facility] Erythrocyte distribution wid th ratioOrdered By: Abraham Coker on 11-29-2024 Erythrocyte distribution width (RBC) [Ratio] 13.0 % 11.6-14.6 [facility] Estimated glomerular filtrat ion rate (GFR) AmericanOrdered By: Abraham Coker on 11-29-2024 Estimated GFR (MDRD) Amer 97 mL/min >60 [facility] Comment on above: GFR Calc Glomerular filtration rate ( GFR) estimationOrdered By: Abraham Coker on 11-29-2024 Estimated GFR (MDRD) Non-Af Amer 80 mL/min >60 [facility] Comment on above: Non- GFR Calc Glucose measurementOrdered B y: Abraham Coker on 11-29-2024 Glucose [Mass/Vol] 147 mg/dL High 74-106 [facility] Comment on above: Fasting Glucose resu lt greater than or equal to 126 mg/dL suggests DIABETES MELLITUS per A.D.A. criteria. Hematocrit Auto (Bld) [Volum e fraction]Ordered By: Abraham Coker on 11-29-2024 Hematocrit (Bld) [Volume fraction] 48.6 % 40-54 [facility] Hemoglobin A1con 11-29-2024 HbA1c (Bld) [Mass fraction] 7.8 % High 3.8-5.6 [facility] Comment on above: Order Comment: Order Date: 11/29/24 Order Info: [id number] - A1C Result Comment: Norm al < 5.7 % Prediabetic 5.7 - 6.4 % Diabetic >or= 6.5 % Please note range changes. Performed By: #### L 100.0100, L500.4100, L501.5200, L501.9985, L502.0250, L500.4050 #### [facility] [address] [place], [address] Hemoglobin A1c percentageOrd ered By: Abraham Coker on 01-10-2025 HbA1c (Bld) [Mass fraction] 7.8 % High 3.8-5.6 [facility] Comment on above: Normal < 5.7 % Predi abetic 5.7 - 6.4 % Diabetic >or= 6.5 % Please note range changes. Hemoglobin measurementOrdere d By: Abraham Coker on 11-29-2024 Hemoglobin (Bld) [Mass/Vol] 16.3 g/dL 13.0-16.5 [facility] High density lipoprotein (HD L) measurementOrdered By: Abraham Coker on 11-29-2024 Cholesterol in HDL [Mass/Vol] 39 mg/dL Low >40 [facility] Comment on above: The drugs N-Acetylcy steine and Metamizole may falsely depress this assay. Reference Range HDL <40 mg/dL Low HDL Cholesterol HDL >or= 60 mg/dL High HDL Cholesterol Immature granulocytes/100 WB C Auto (Bld)Ordered By: Abraahm Coker on 11-29-2024 Immature granulocytes/100 WBC (Bld) 0.800 % 0.0-0.9 [facility] Comment on above: IG% - Immature Granu locytes (promyelocytes, myelocytes and metamyelocytes) > 1% indicates that a LEFT SHIFT is Present. Laboratory - Chemistry and C hemistry - challengeOrdered By: Abraham Coker on 11-29-2024 AST [Catalytic activity/Vol] 27 U/L 15-37 [facility] Comment on above: Slight Hemolysis, Re sult may be falsely increased. Lipid Profileon 11-29-2024 Cholesterol [Mass/Vol] 150 mg/dL Normal 200 [facility] Comment on above: Order Comment: Order Date: 11/29/24 Order Info: [id number] - CMP Order Info: [id number] - LIPID Order Info: [id number] - MG Result Comment: <200 mg/dL Desirable 200-240 mg/dL Borderline >240 mg/dL High Risk Performed By: #### L 100.0100, L500.4100, L501.5200, L501.9985, L502.0250, L500.4050 #### [facility] [address] [place], [address] Cholesterol in HDL [Mass/Vol] 39 mg/dL Low [facility] Comment on above: Order Comment: Order Date: 11/29/24 Order Info: [id number] - CMP Order Info: [id number] - LIPID Order Info: [id number] - MG Result Comment: The drugs N-Acetylcysteine and Metamizole may falsely depress this assay. Reference Range HDL <40 mg/dL Low HDL Cholesterol HDL >or= 60 mg/dL High HDL Cholesterol Performed By: #### L 100.0100, L500.4100, L501.5200, L501.9985, L502.0250, L500.4050 #### [facility] [address] [place], [address] Cholesterol in LDL [Mass/Vol] 59 mg/dL Normal 0-130 [facility] Comment on above: Order Comment: Order Date: 11/29/24 Order Info: [id number]- - CMP Order Info: [id number] - LIPID Order Info: [id number] - MG Performed By: #### L 100.0100, L500.4100, L501.5200, L501.9985, L502.0250, L500.4050 #### [facility] [address] [place], [address] Cholesterol in VLDL [Mass/Vol] 52 mg/dL High 5-40 [facility] Comment on above: Order Comment: Order Date: 11/29/24 Order Info: [id number] - CMP Order Info: [id number] - LIPID Order Info: [id number] - MG Performed By: #### L 100.0100, L500.4100, L501.5200, L501.9985, L502.0250, L500.4050 #### [facility] [address] [place], [address] Triglyceride [Mass/Vol] 259 mg/dL High [facility] Comment on above: Order Comment: Order Date: 11/29/24 Order Info: [id number] - CMP Order Info: [id number] - LIPID Order Info: [id number] - MG Result Comment: The drugs N-Acetylcysteine and Metamizole may falsely depress this assay. Serum Triglycerides Reference Interval Normal <150 mg/dL Borderline high 150 - 199 mg/dL High 200 - 499 mg/dL Very High > or = 500 mg/dL Performed By: #### L 100.0100, L500.4100, L501.5200, L501.9985, L502.0250, L500.4050 #### [facility] [address] [place], [place], [address] Low density lipoprotein (LDL ) cholesterol measurementOrdered By: Abraham Coker on 11-29-2024 Cholesterol in LDL [Mass/Vol] 59 mg/dL 0-130 [facility] Lymphocytes Auto (Unsp spec) [#/Vol]Ordered By: Abraham Coker on 11-29-2024 Lymphocytes (Bld) [#/Vol] 1.97 10*3/uL 0.83-4.5 1 [facility] Lymphocytes/100 WBC Auto (Un sp spec)Ordered By: Abraham Coker on 11-29-2024 Lymphocytes/100 WBC (Bld) 29.7 % 19-41 [facility] MCV (mean corpuscular volume ) determinationOrdered By: Abraham Coker on 11-29-2024 MCV (RBC) [Entitic vol] 86.6 fL 80-94 [facility] Magnesiumon 11-29-2024 Magnesium [Mass/Vol] 2.1 mg/dL Normal 1.6-2.6 [facility] Comment on above: Order Comment: Order Date: 11/29/24 Order Info: [id number] - CMP Order Info: [id number] - LIPID Order Info: [id number] - MG Result Comment: Slig ht Hemolysis, Result may be falsely increased. Performed By: #### L 100.0100, L500.4100, L501.5200, L501.9985, L502.0250, L500.4050 #### [facility] [address] [place], [place], [id number] Magnesium measurementOrdered By: Abraham Coker on 11-29-2024 Magnesium [Mass/Vol] 2.1 mg/dL 1.6-2.6 [facility] Comment on above: Slight Hemolysis, Re sult may be falsely increased. Mean corpuscular hemoglobin (MCH) determinationOrdered By: Abraham Coker on 11-29-2024 MCH (RBC) [Entitic mass] 29.1 pg 27.0-32.0 [facility] Mean corpuscular hemoglobin concentration (MCHC) determinationOrdered By: Abraham Coker on 11-29-2024 MCHC (RBC) [Mass/Vol] 33.5 g/dL 32-36 [facility] Mean platelet volume determi nationOrdered By: Abraham Coker on 11-29-2024 Platelet mean volume (Bld) [Entitic vol] 10.9 fL 6.2-12.0 [facility] Microalb:Creat Ratio,Random URon 11-29-2024 Creatinine [Mass/Vol] 249.00 mg/dL Normal NO RAN GE EST. [facility] Comment on above: Order Comment: Order Date: 11/29/24 Order Info: [id number] - MIACRE Performed By: #### L 100.0100, L500.4100, L501.5200, L501.9985, L502.0250, L500.4050 #### [facility] [address] [place], [place], [address] MALB:CRE 6.6 mg/g CRE Normal <30 mg/g CRE [facility] Comment on above: Order Comment: Order Date: 11/29/24 Order Info: [id number] - MIACRE Performed By: #### L 100.0100, L500.4100, L501.5200, L501.9985, L502.0250, L500.4050 #### [facility] [address] [place], [place], [id number] MICROALBUMIN,UR 16.4 mg/L Normal NO RANGE EST. [facility] Comment on above: Order Comment: Order Date: 11/29/24 Order Info: [id number] - MIACRE Performed By: #### L 100.0100, L500.4100, L501.5200, L501.9985, L502.0250, L500.4050 #### [facility] [place], [address] Monocyte percentageOrdered B y: Abraham Coker on 11-29-2024 Monocytes/100 WBC (Bld) 8.4 % 0-10 [facility] Neutrophil percentageOrdered By: Abraham Coker on 11-29-2024 Neutrophils/100 WBC (Bld) 58.1 % 47-70 [facility] Nucleated red blood cell per centageOrdered By: Abraham Coker on 11-29-2024 Nucleated RBC/100 WBC (Bld) [Ratio] 0 % 0-5 [facility] Platelet countOrdered By: Rachana Coker on 11-29-2024 Platelets (Bld) [#/Vol] 262 10*3/uL 150-450 [facility] Potassium measurementOrdered By: Abraham Coker on 11-29-2024 Potassium [Moles/Vol] 4.1 mmol/L 3.5-5.1 [facility] Comment on above: Slight Hemolysis, Re sult may be falsely increased. RBC Auto (Bld) [#/Vol]Ordere d By: Abraham Coker on 11-29-2024 RBC (Bld) [#/Vol] 5.61 10*6/uL 4.6-6.2 [facility] Random urine microalbumin me asurementOrdered By: Abraham Coker on 11-29-2024 Urine Random Microalbumin 16.4 mg/L NO RANGE EST. [facility] Serum anion gap measurementO rdered By: Abraham Coker on 11-29-2024 Anion gap [Moles/Vol] 4 mmol/L Low 5-15 [facility] Serum globulin measurementOr dered By: Abraham Coker on 11-29-2024 Globulin (S) [Mass/Vol] 3.3 g/dL 2.2-4.2 [facility] Serum or plasma alanine carroll otransferase (ALT) measurementOrdered By: Abraham Coker on 11-29-2024 ALT [Catalytic activity/Vol] 76 U/L High 16-61 [facility] Serum or plasma albumin nicky urement (mass/volume)Ordered By: Abraham Coker on 11-29-2024 Albumin [Mass/Vol] 4.1 g/dL 3.2-5.0 [facility] Serum or plasma alkaline marily sphatase measurementOrdered By: Abraham Coker on 11-29-2024 ALP [Catalytic activity/Vol] 87 U/L 45-117 [facility] Serum or plasma calcium nicky urement (mass/volume)Ordered By: Abraham Coker on 11-29-2024 Calcium [Mass/Vol] 9.0 mg/dL 8.5-10.1 [facility] Serum or plasma cholesterol measurement (mass/volume)Ordered By: Abraham Coker on 11-29-2024 Cholesterol [Mass/Vol] 150 mg/dL <200 [facility] Comment on above: <200 mg/dL Desirable 200-240 mg/dL Borderline >240 mg/dL High Risk Serum or plasma creatinine m easurement (mass/volume)Ordered By: Abraham Coker on 11-29-2024 Creatinine [Mass/Vol] 1.03 mg/dL 0.70-1.30 [facility] Comment on above: The validity of the calculated GFR & GFRAA in patients over 70 years has not been determined. Clinical correlation is essential. Serum or plasma urea nitroge n measurement (mass/volume)Ordered By: Abraham Coker on 11-29-2024 Urea nitrogen [Mass/Vol] 20 mg/dL High 7-18 [facility] Sodium levelOrdered By: Abraham Coker on 11-29-2024 Sodium [Moles/Vol] 138 mmol/L 136-145 [facility] Total proteinOrdered By: Kirk Coker on 11-29-2024 Protein [Mass/Vol] 7.4 g/dL 6.4-8.2 [facility] Triglycerides measurementOrd ered By: Abraham Coker on 11-29-2024 Triglyceride [Mass/Vol] 259 mg/dL High <199 [facility] Comment on above: The drugs N-Acetylcy steine and Metamizole may falsely depress this assay.Serum Triglycerides Reference Interval Normal <150 mg/dL Borderline high 150 - 199 mg/dL High 200 - 499 mg/dL Very High > or = 500 mg/dL Urine albumin/creatinine rat io for detection of microalbuminuriaOrdered By: Abraham Coker on 11-29-2024 Urine Microalbumin/Creatinine Ratio 6.6 mg/g CRE <30 [facility] Urine creatinine measurement (mass/volume)Ordered By: Abraham Coker on 11-29-2024 Creatinine (U) [Mass/Vol] 249.00 mg/dL NO RANGE EST. [facility] Very low density lipoprotein (VLDL) cholesterol measurementOrdered By: Abraham Coker on 11-29-2024 VLDL Cholesterol 52 mg/dL High 5-40 [facility] White blood cell (WBC) count Ordered By: Abraham Coker on 11-29-2024 WBC (Bld) [#/Vol] 6.6 10*3/uL 4.4-11.0 [facility] 12 Lead EKG performed by [facility] on 07-16-2024 12 Lead EKG performed by [address] [address] 12 Lead EKG performed by [facility] 07/16/24 0851 MR#: [id number] Acct: [id number] Name: INDIGO MARTINEZ Rep #: [id number] : 1970 53 From: Eric Espinoza MD Attending Dr: Dr. Eric Espinoza MD Status: DE P MARTELL Ordering Dr: Eric Espinoza MD Date: 07/16/24 Location: [facility] Sex: M C Admitted: [facility]/12 Lead EKG performed by [facility] ECG Report Interpretation ----Sinus Rhythm WITHIN NORMAL LIMITSElectronically signed on 07/16/2024 at 15:[address] Eric Espinoza [place] [employer] Version [id number] 07/16/24 1520 Date Eric Espinoza MD CC: Dr. Abraham Coker MD Date Dictated: 07/16/2451 Date Transcribed: 07/16/24850 Community Service Officer Coordinator: Signed Normal [facility] Cardiology Visit Reporton Cardiology Visit Report [facility] [address] [place] [address] OFFICE VISIT Date of Service: 07/16/24 MR#: [id number] Acct: [id number] Name: INDIGO MARTINEZ Rep #: [id number] : 1970 Provider: Dr. Eric hooks MD Age/Sex: 53/M Location: [facility] [facility] Status: Signed HPI [facility] History of Present Illness Details: Patient is a 53-year-old white male with a history of CVA back in August 2020. He comes in after having been diagnosed with paroxysmal atrial fibrillation several months later when he was scheduled for hemorrhoid surgery. He was totally asymptomatic with the atrial fibrillation and in retrospect was probably the etiology of his otherwise unexplained stroke back in [place]. He has no significant residual from his stroke. The patient does have a history of diabetes on metformin hemoglobin A1c runs between 5.5 and 6.5 he also has a history of hypertension which is well- controlled on his current medical therapy. The patient is moving his cardiovascular care closer to home here in [place] he had historically been followed at the [facility]. The patient's [id number] score is 4 which gives him a 4% risk of stroke per year. However, he has had 1 to 2% burden of atrial fibrillation on his last 2 - 30-day event recorder's. Given this low level of atrial fibrillation we may have the opportunity of monitoring this with a wearable device in the future should he develop issues with utilization of Eliquis. The patient is active he is very vigilant with his dietary modification since his stroke and is lost 30 pounds. He is motivated to continue to lose weight and we did discuss some options including the potential of maybe switching from metformin to one of the SGLT2 inhibitors. I asked him to discuss this with his primary care physician who monitors and treats his diabetes. EKG in the office today showed normal sinus rhythm at 62 bpm and is within normal limits. Patient's echocardiogram done October 2021 at the time he was originally diagnosed with atrial fibrillation showed minimal dilation of the left ventricle with an ejection fraction of 50%. There was grade 1 left ventricular diastolic dysfunction the right ventricle was normal in size and function the left atrial cavity was mildly dilated the right atrial cavity was dilated. 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 Accompanied by: Self Is patient in pain?: No Allergies No Known Allergies Allergy (Verified 07/16/24 13:54) Medications ???Medication ???Instructions ???Recorded ???Confirmed ???Type atorvastatin 40 mg tablet 40 mg PO DAILY CHOLESTEROL 10/22/21 07/16/24 History metformin 500 mg tablet 500 mg PO BID DM 10/22/21 07/16/24 History ibuprofen 200 mg tablet 400 mg PO DAILY PAIN 11/11/21 07/16/24 History losartan 50 mg-hydrochlorothiazide 1 tab PO DAILY blood pressure 11/11/21 07/16/24 History 12.5 mg tablet apixaban 5 mg tablet (Eliquis) 5 mg PO BID blood thinner #20 tabs 07/16/24 07/16/24 Rx Ejection fraction %: 50 Have you fallen in the past year?: No [facility] Medical History (Updated 07/16/24 @ 15:[address] Eric Espinoza MD) Suspected sleep apnea Atrial fibrillation Diverticulitis Diabetes Acute hemorrhoid History of stroke Surgical History H/O: hemorrhoidectomy Social History Smoking Status: Never smoker alcohol intake: current substance use type: other details: marijuana gummies caffeine: Yes ROS Const Const: Negative for fatigue or weakness ENT ENT: Negative for dizziness or balance problems Cardio Chest Pain: No Palpitations: No Edema: None Muscle aches with walking: None Resp Respiratory: Negative for SOB with activity, SOB at rest or SOB orthopnea SOB lying down GI GI: Negative nausea, vomiting or heartburn Musc Musc: Negative for muscle weakness or balance problems Neuro Neuro: Negative for dizziness, lightheadedness, near syncope, syncope or weakness Endo Endo: Negative for fatigue Cardiology Exam Const Appearance: cooperative, healthy appearing, comfortable, no acute distress, well developed and well groomed Head Head: normal to inspection Eyes General: appearance normal, both eyes and all related structures Neck Neck: normal visual inspection and no JVD Carotids: Negative bruit Chest Chest inspection: normal inspection of the chest Auscu (more content not included)... Normal [facility] Absolute lymphocyte countOrd ered By: Abraham Coker on 09-29-2023 Lymphocytes Auto (Unsp spec) [#/Vol] 1.32 10*3/uL 0.83-4.51 [facility] Basophil percentageOrdered B y: Abraham Dunhamgayle on 09-29-2023 Basophils/100 WBC (Bld) 0.8 % 0-1 [facility] Bilirubin [Mass/Vol] 0.90 mg/dL 0.20-1.00 [facility] Comment on above: For patients on eltr ombopag therapy, use of Dimension [place] TBIL is not recommended. Chloride [Moles/Vol] 106 mmol/L 98-107 [facility] Cholesterol [Mass/Vol] 123 mg/dL <200 [facility] Comment on above: <200 mg/dL Desirable 200-240 mg/dL Borderline >240 mg/dL High Risk Eosinophils/100 WBC (Bld) 1.7 % 0-5 [facility] Glucose [Mass/Vol] 124 mg/dL 74-106 [facility] Comment on above: Fasting Glucose resu lt from 100 to 125 mg/dL suggests IMPAIRED HOMEOSTASIS per A.D.A. criteria. Neutrophils (Bld) [#/Vol] 4.6 10*3/uL 2.0-7.7 [facility] Neutrophils/100 WBC (Bld) 70.1 % 47-70 [facility] Potassium [Moles/Vol] 3.9 mmol/L 3.5-5.1 [facility] Protein [Mass/Vol] 7.4 g/dL 6.4-8.2 [facility] Sodium [Moles/Vol] 141 mmol/L 136-145 [facility] Triglyceride [Mass/Vol] 136 mg/dL <199 [facility] Comment on above: The drugs N-Acetylcy steine and Metamizole may falsely depress this assay.Serum Triglycerides Reference Interval Normal <150 mg/dL Borderline high 150 - 199 mg/dL High 200 - 499 mg/dL Very High > or = 500 mg/dL WBC (Bld) [#/Vol] 6.5 10*3/uL 4.4-11.0 [facility] Blood erythrocytes count (nu mber/volume)Ordered By: Abraham Coker on 09-29-2023 RBC (Bld) [#/Vol] 5.36 10*6/uL 4.6-6.2 [facility] Blood hemoglobin measurement (mass/volume)Ordered By: Abraham Coker on 09-29-2023 Hemoglobin (Bld) [Mass/Vol] 15.3 g/dL 13.0-16.5 [facility] Blood lymphocytes/100 leukoc ytesOrdered By: Abraham Coker on 09-29-2023 Lymphocytes/100 WBC (Bld) 20.3 % 19-41 [facility] Blood monocytes/100 leukocyt esOrdered By: Abraham Coker on 09-29-2023 Monocytes/100 WBC (Bld) 6.8 % 0-10 [facility] Blood platelet mean volumeOr dered By: Abraham Coker on 09-29-2023 Platelet mean volume (Bld) [Entitic vol] 10.4 fL 6.2-12.0 [facility] Determination of erythrocyte mean corpuscular volume (MCV)Ordered By: Abraham oCker on 09-29-2023 MCV (RBC) [Entitic vol] 89.9 fL 80-94 [facility] Hematocrit Auto (Bld) [Volum e fraction]Ordered By: Abraham Coker on 09-29-2023 Hematocrit (Bld) [Volume fraction] 48.2 % 40-54 [facility] Laboratory - Chemistry and C hemistry - challengeOrdered By: Abraham Coker on 09-29-2023 ALP [Catalytic activity/Vol] 72 U/L 45-117 [facility] ALT [Catalytic activity/Vol] 52 U/L 16-61 [facility] CO2 [Moles/Vol] 28.0 mmol/L 21.0-32.0 [facility] Globulin (S) [Mass/Vol] 3.5 g/dL 2.2-4.2 [facility] Magnesium [Mass/Vol] 2.3 mg/dL 1.6-2.6 [facility] Urea nitrogen/Creatinine [Mass ratio] 16.3 mg/mg 10-20 [facility] Laboratory - Hematology and Cell countsOrdered By: Abraham Coker on 09-29-2023 Erythrocyte distribution width (RBC) [Entitic vol] 44.0 fL 35.1-43.9 [facility] Erythrocyte distribution width (RBC) [Ratio] 13.2 % 11.6-14.6 [facility] Immature granulocytes/100 WBC (Bld) 0.300 % 0.0-0.9 [facility] Comment on above: IG% - Immature Granu locytes (promyelocytes, myelocytes and metamyelocytes) > 1% indicates that a LEFT SHIFT is Present. MCH (RBC) [Entitic mass] 28.5 pg 27.0-32.0 [facility] Nucleated RBC/100 WBC (Bld) [Ratio] 0 % 0-5 [facility] MCHC Auto (RBC) [Mass/Vol]Or dered By: Abraham Coker on 09-29-2023 MCHC (RBC) [Mass/Vol] 31.7 g/dL 32-36 [facility] No Panel InformationOrdered By: Abraham Coker on 09-29-2023 Estimated GFR (MDRD) Amer 103 mL/min >60 [facility] Comment on above: GFR Calc Estimated GFR (MDRD) Non-Af Amer 85 mL/min >60 [facility] Comment on above: Non- GFR Calc Thyroid Stimulating Hormone (TSH) 1.45 uIU/mL 0.358-3.74 [facility] Urine Microalbumin/Creatinine Ratio 6.0 mg/g CRE <30 [facility] Platelets bldOrdered By: Kirk Coker on 09-29-2023 Platelets (Bld) [#/Vol] 245 10*3/uL 150-450 [facility] Serum or plasma albumin nicky urement (mass/volume)Ordered By: Abraham Coker on 09-29-2023 Albumin [Mass/Vol] 3.9 g/dL 3.2-5.0 [facility] Serum or plasma albumin/glob ulin mass ratioOrdered By: Abraham Coker on 09-29-2023 Albumin/Globulin [Mass ratio] 1.1 {ratio} 0.9-2.4 [facility] Serum or plasma calcium nicky urement (mass/volume)Ordered By: Abraham Coker on 09-29-2023 Calcium [Mass/Vol] 8.6 mg/dL 8.5-10.1 [facility] Serum or plasma cholesterol in HDL measurement (mass/volume)Ordered By: Abraham Coker on 09-29-2023 Cholesterol in HDL [Mass/Vol] 43 mg/dL >40 [facility] Comment on above: The drugs N-Acetylcy steine and Metamizole may falsely depress this assay. Reference Range HDL <40 mg/dL Low HDL Cholesterol HDL >or= 60 mg/dL High HDL Cholesterol Serum or plasma cholesterol in VLDL measurement (mass/volume)Ordered By: Abraham Coker on 09-29-2023 Cholesterol in VLDL [Mass/Vol] 27 mg/dL 5-40 [facility] Serum or plasma creatinine m easurement (mass/volume)Ordered By: Abraham Coker on 09-29-2023 Creatinine [Mass/Vol] 0.98 mg/dL 0.70-1.30 [facility] Comment on above: The validity of the calculated GFR & GFRAA in patients over 70 years has not been determined. Clinical correlation is essential. Serum or plasma low density lipoprotein (LDL) cholesterol measurement (mass/volume)Ordered By: Abraham Coker on 09-29-2023 Cholesterol in LDL [Mass/Vol] 53 mg/dL 0-130 [facility] Serum or plasma urea nitroge n measurement (mass/volume)Ordered By: Abraham Coker on 09-29-2023 Urea nitrogen [Mass/Vol] 16 mg/dL 7-18 [facility] Thin prep Papanicolaou smear with manual screeningOrdered By: Abraham Coker on 09-29-2023 Thin prep Papanicolaou smear with manual screening 17 U/L 15-37 [facility] Thin prep Papanicolaou smear with manual screening 7 5-15 [facility] Thin prep Papanicolaou smear with manual screening 5.4 mg/L NO RANGE EST. [facility] Urine creatinine measurement (mass/volume)Ordered By: Abraham Coker on 09-29-2023 Creatinine (U) [Mass/Vol] 89.80 mg/dL NO RANGE EST. [facility] Whole blood hemoglobin A1c/t otal hemoglobin ratio (mass fraction)Ordered By: Abraham Coker on 09-29-2023 HbA1c (Bld) [Mass fraction] 6.3 % 3.8-5.6 [facility] Comment on above: Normal < 5.7 % Predi abetic 5.7 - 6.4 % Diabetic >or= 6.5 % Please note range changes. Basophil percentageOrdered B y: Ju Toney on 03-10-2023 Bilirubin [Mass/Vol] 0.80 mg/dL 0.20-1.00 [facility] Comment on above: For patients on eltr ombopag therapy, use of Dimension [place] TBIL is not recommended. Chloride [Moles/Vol] 109 mmol/L 98-107 [facility] Cholesterol [Mass/Vol] 120 mg/dL <200 [facility] Comment on above: <200 mg/dL Desirable 200-240 mg/dL Borderline >240 mg/dL High Risk Glucose [Mass/Vol] 156 mg/dL 74-106 [facility] Comment on above: Fasting Glucose resu lt greater than or equal to 126 mg/dL suggests DIABETES MELLITUS per A.D.A. criteria. Potassium [Moles/Vol] 3.7 mmol/L 3.5-5.1 [facility] Protein [Mass/Vol] 6.8 g/dL 6.4-8.2 [facility] Sodium [Moles/Vol] 138 mmol/L 136-145 [facility] Triglyceride [Mass/Vol] 114 mg/dL <199 [facility] Comment on above: The drugs N-Acetylcy steine and Metamizole may falsely depress this assay.Serum Triglycerides Reference Interval Normal <150 mg/dL Borderline high 150 - 199 mg/dL High 200 - 499 mg/dL Very High > or = 500 mg/dL WBC (Bld) [#/Vol] 5.6 10*3/uL 4.4-11.0 [facility] Blood erythrocytes count (nu mber/volume)Ordered By: Ju Toney on 03-10-2023 RBC (Bld) [#/Vol] 5.15 10*6/uL 4.6-6.2 [facility] Blood hemoglobin measurement (mass/volume)Ordered By: [facility] Dawna on 03-10-2023 Hemoglobin (Bld) [Mass/Vol] 15.1 g/dL 13.0-16.5 [facility] Blood platelet mean volumeOr dered By: [facility] Dawna on 03-10-2023 Platelet mean volume (Bld) [Entitic vol] 10.9 fL 6.2-12.0 [facility] Determination of erythrocyte mean corpuscular volume (MCV)Ordered By: [facility] Dawna on 03-10-2023 MCV (RBC) [Entitic vol] 90.5 fL 80-94 [facility] Hematocrit Auto (Bld) [Volum e fraction][facility]23 Hematocrit (Bld) [Volume fraction] 46.6 % 40-54 [facility] Laboratory - Chemistry and C hemistry - challengeOrdered By: [facility] on 03-10-2023 ALP [Catalytic activity/Vol] 72 U/L 45-117 [facility] ALT [Catalytic activity/Vol] 71 U/L 16-61 [facility] CO2 [Moles/Vol] 27.0 mmol/L 21.0-32.0 [facility] Globulin (S) [Mass/Vol] 3.0 g/dL 2.2-4.2 [facility] Urea nitrogen/Creatinine [Mass ratio] 17.4 mg/mg 10-20 [facility] Laboratory - Hematology and Cell countsOrdered By: [facility] on 03-10-2023 Erythrocyte distribution width (RBC) [Entitic vol] 43.3 fL 35.1-43.9 [facility] Erythrocyte distribution width (RBC) [Ratio] 13.2 % 11.6-14.6 [facility] MCH (RBC) [Entitic mass] 29.3 pg 27.0-32.0 [facility] MCHC Auto (RBC) [Mass/Vol]Or dered By: [facility] Dawna on 03-10-2023 MCHC (RBC) [Mass/Vol] 32.4 g/dL 32-36 [facility] No Panel InformationOrdered By: Ju Statjim on 03-10-2023 Estimated GFR (MDRD) Amer 91 mL/min >60 [facility] Comment on above: GFR Calc Estimated GFR (MDRD) Non-Af Amer 75 mL/min >60 [facility] Comment on above: Non- GFR Calc Platelets bldOrdered By: Jossue tlmelanie Statestelleouledi on 03-10-2023 Platelets (Bld) [#/Vol] 234 10*3/uL 150-450 [facility] Serum or plasma albumin nicky urement (mass/volume)Ordered By: Ju Toney on 03-10-2023 Albumin [Mass/Vol] 3.8 g/dL 3.2-5.0 [facility] Serum or plasma albumin/glob ulin mass ratioOrdered By: Ju [facility] on 03-10-2023 Albumin/Globulin [Mass ratio] 1.3 {ratio} 0.9-2.4 [facility] Serum or plasma calcium nicky urement (mass/volume)Ordered By: Ju Statjim on 03-10-2023 Calcium [Mass/Vol] 9.0 mg/dL 8.5-10.1 [facility] Serum or plasma cholesterol in HDL measurement (mass/volume)Ordered By: Ju Toney on 03-10-2023 Cholesterol in HDL [Mass/Vol] 36 mg/dL >40 [facility] Comment on above: The drugs N-Acetylcy steine and Metamizole may falsely depress this assay. Reference Range HDL <40 mg/dL Low HDL Cholesterol HDL >or= 60 mg/dL High HDL Cholesterol Serum or plasma cholesterol in VLDL measurement (mass/volume)Ordered By: Ju Statjim on 03-10-2023 Cholesterol in VLDL [Mass/Vol] 23 mg/dL 5-40 [facility] Serum or plasma creatinine m easurement (mass/volume)Ordered By: Ju Statjim on 03-10-2023 Creatinine [Mass/Vol] 1.09 mg/dL 0.70-1.30 [facility] Comment on above: The validity of the calculated GFR & GFRAA in patients over 70 years has not been determined. Clinical correlation is essential. Serum or plasma low density lipoprotein (LDL) cholesterol measurement (mass/volume)Ordered By: [facility] on 03-10-2023 Cholesterol in LDL [Mass/Vol] 61 mg/dL 0-130 [facility] Serum or plasma urea nitroge n measurement (mass/volume)Or[facility] By: [facility]23 Urea nitrogen [Mass/Vol] 19 mg/dL 7-18 [facility] Thin prep Papanicolaou smear with manual screeningOrdered By: [facility] on 03-10-2023 Thin prep Papanicolaou smear with manual screening 31 U/L 15-37 [facility] Thin prep Papanicolaou smear with manual screening 2 5-15 [facility] Whole blood hemoglobin A1c/t otal hemoglobin ratio (mass fraction)Ordered By: [facility] on 03-10-2023 HbA1c (Bld) [Mass fraction] 6.7 % 3.8-5.6 [facility] Comment on above: Normal < 5.7 % Predi abetic 5.7 - 6.4 % Diabetic >or= 6.5 % Please note range changes. CNOVon 12-28-2022 CNOV Office Visit (CARCMN ) INDIGO MARTINEZ ([id number]) 1970 M Date Time Provider Department 12/28/22 2:45 PM JOSE CHATMAN CARCMN During your visit today, we recorded the following information about you: Pulse Blood pressure Weight Height 69/minute 146/74 105.2 kg 1.753 m Jose Chatman MD 12/28/2022 3:49 PM [facility] [place] Department of Cardiovascular Medicine SECTION OF CLINICAL CARDIOLOGY OUTPATIENT VISIT DATE December 28, 2022 OUTPATIENT VISIT TYPE ESTABLISHED PRIMARY CARE PHYSICIAN: Abraham Coker MD [address] [place] [address] REFERRING PHYSICIAN: SELF CHIEF COMPLAINT: Followup HISTORY OF PRESENT ILLNESS: Mr. Martinez is a 52 year old male who presents today for a cardiovascular medicine follow-up visit. CARDIAC AND RELEVANT HISTORY: Atrial fibrillation, initially discovered preoperatively though confirmed on heart monitor (4% burden), on Eliquis 5mg BID. ChadsVasc 5. On Metoprolol succinate 25mg Hx of bleeding hemorrhoids post surgical intervention. No bleeding since. EF 50%, no RWMA (plot below) Mild LA dilation. Hx of reported flutter as well (has mild RA dilation) Zio showing 4% AF, average HR 65 bpm. No dyspnea, exertional intolerance, presyncope/syncope. Has some fleeting flutters in the center of his chest at times. PVC history, prior heart monitor; ~6% burden. SVT, heart monitor reported 62 episodes. HTN, on losartan DM HLD on Lipitor 40mg Stroke history Echo: Prior has seen colleague Dr. Pineda (December 2021) with plan at that time: High PVC burden and Paroxysmal atrial fibrillation, high [id number] score (5 stroke, DM, HTN, mild LV dysfunction), apixaban had to be stopped for a month till he got surgery for hemorroids and also for ischemic colitis after that. Now back on apixaban , should be taking 5 mg bid, but he is taking low dose 2.5 mg bid, talked about importance of proper dosing of DOACs. Also talked about Watchman device and AF ablation, his LV mild dysfunction could be in setting of AF with RVR before his surgery which was captured by EKG, his AF burden was 2% and PVC burden was 7% on zio patch, but he was not on beta blockers and had the stress of bleeding, anemia and surgery, we also talked today about catheter ablation for AF and PVC The final shared decision for now, given he is asymptomatic and continues to improve, to keep apixaban 5 mg bid , and metoprolol for now , repeat the echo and zio patch in six months and see him in clinic in six months to decide about whether or not to purse other invasive options Zio monitor 09/2022: CARDIAC MEDS: Losartan 50mg Eliquis 5mg BID Toprol XL 25mg daily Lipitor 40mg ASSESSMENT: Very pleasant 52 year old mark presenting with the above history and cardiovascular concerns. Patient of Dr. Rios (out of office; seeing in his place today). Afib, on OAC and BB (hx of hemorrhoid bleed, watchman has been discussed, concern for 50% EF iso ?tachyarrhythmia and may warrant ablation. Afib burden relatively low still at 4% on most recent heart monitor, PVC burden historically around 6%. PLAN: Continue current medication regimen. Shared decision after review of echo imaging and discussing his rather lack of associated symptoms, to continue with medical management/rate control strategy for his Afib/PVCs. Will place a one year followup though glad to connect sooner if/as any change clinically or new symptoms present. PAST MEDICAL HISTORY Diagnosis Date Atrial fibrillation (HCC) Atrial flutter (HCC) Diabetes mellitus (HCC) Hemorrhoids Hypercholesteremia Kidney stones Stroke (HCC) 08/2020 PAST SURGICAL HISTORY Procedure Laterality Date PAST SURGICAL HISTORY OF 11/04/2021 Anorectal exam under anesthesia, rigid proctoscopy, excision of hemorrhoids in right posterior and left lateral positions in open technique according to Caesar-Mark, flexible sigmoidoscopy, and endoscopic resection of sigmoid polyp. PAST SURGICAL HISTORY OF 11/04/2021 excision of hemorrhoids, flexible sigmoidoscopy SOCIAL HISTORY Social History Tobacco Use Smoking status: Never Smokeless tobacco: Never Vaping Use Vaping Use: Never used Substance Use Topics Alcohol use: Yes Comment: social Drug use: Never FAMILY HISTORY Problem Relation Age of Onset No Known Problems Mother No Known Problems Father ALLERGIES: ALLERGIES No Known Allergies MEDICATIONS: losartan (COZAAR) 50 mg tabletTake 1 tablet by mouth once daily.Disp: 90 tabletRfl: 3 apixaban (ELIQUIS) 5 mg tab(s)Take 1 tablet by mouth twice daily.Disp: 180 tabletRfl: 3 metoprolol succinate ER (TOPROL XL) 25 mg 24 hr tabletTake 25 mg by mouth once daily.Disp: Rfl: atorvastatin (LIPITOR) 40 mg t (more content not included)... Normal [facility] [id number] 12-28-2022 ECG01 Ventricular Rate : 6 7 BPM Atrial Rate : 67 BPM P-R Interval : 150 ms QRS Duration : 108 ms Q-T Interval : 398 ms QTC Calculation(Bazett) : 420 ms Calculated P [place] : 14 degrees Calculated R [place] : -24 degrees Calculated T [place] : 4 degrees NORMAL SINUS RHYTHM NORMAL ECG Confirmed by ANJANA SOLITARIO MD () on 01/03/2023 3:38:00 PM NAME : INDIGO MARTINEZ PID : [id number] : 1970 Gender : Male Race : ORD : Procedure Date : Dec 28 2022 14:01:23 Edit Date : Jan 03 2023 15:39:10 Diagnosis: NORMAL SINUS RHYTHM NORMAL ECG Confirmed by ANJANA SOLITARIO MD ([id number]) on 01/03/2023 3:38:00 PM Test Reason : Location : [address] : [place] [id number] Overread By : ANJANA SOLITARIO MD Edited By : ANJANA SOLITARIO MD Referred By : JOSE CHATMAN Acquired by : DUNCAN BA [facility] 11-18-2022 CNPN Telephone (CARD CHF BAIRON) MARTINEZ,INDIGO Gabriel ([id number]) 1970 M Date Time Provider Department 11/18/22 MAURO PINEDA CARD CHF [facility] During your visit today, we recorded the following information about you: [employer] RN 11/18/2022 4:01 PM Addendum Antonio Solomon called from [employer]: Patient wore from 10/04/2022-10/10/2022 4% burden Afib, episode was flagged for average HR of 164 BPM sustained for 60 seconds. On page 11 strip 5. Patient did provide 2 triggers both times patient in NSR. [employer] RN Allergies As of Date: 11/18/2022 (No Known Allergies) Date Reviewed: 12/29/2021 Reviewed by: Lacho Saldivar - Fully Assessed Reason for Visit: Results [95] Prescriptions as of 11/23/2022 - losartan (COZAAR) 50 mg tablet Take 1 tablet by mouth once daily. - apixaban (ELIQUIS) 5 mg tab(s) Take 1 tablet by mouth twice daily. - metoprolol succinate ER (TOPROL XL) 25 mg 24 hr tablet Take 25 mg by mouth once daily. - atorvastatin (LIPITOR) 40 mg tablet Take 40 mg by mouth once daily. - metFORMIN (GLUCOPHAGE) 500 mg tablet Take 1,000 mg by mouth daily with breakfast. Facility-Administered Medications as of 11/23/2022 - perflutren lipid microspheres 1.3 mL in NaCl (PF) 0.9% 10 mL injection (DEFINITY) - sodium chloride 0.9 % (flush) 10 mL (BD POSIFLUSH) - perflutren lipid microspheres 1.3 mL in NaCl (PF) 0.9% 10 mL injection (DEFINITY) - sodium chloride 0.9 % (flush) 10 mL (BD POSIFLUSH) Problem List As Of Date 11/18/2022 Noted Resolved CVA (cerebral vascular accident) (HCC) [I63.9] 10/22/2021 Mixed hyperlipidemia [E78.2] 10/22/2021 Diabetes (HCC) [E11.9] 10/22/2021 Obesity (BMI 30-39.9) [E66.9] 10/22/2021 Episodic atrial flutter (HCC) [I48.92] 10/22/2021 Hemorrhoids [K64.9] 10/22/2021 Obesity, Class I, BMI 30-34.9 [E66.9] 10/27/2021 Paroxysmal atrial fibrillation (HCC) [I48.0] 10/27/2021 History of stroke [Z86.73] 10/27/2021 Elevated blood pressure reading without diagnos*10/27/2021 Encounter Status:Closed by LA NENA CLEAN[employer] on 11/23/22 [facility] 10-25-2022 MATT Telephone (VENU) INDIGO MARTINEZ ([id number]) 1970 M Date Time Provider Department 10/25/22 MAURO PINEDA During your visit today, we recorded the following information about you: Melba Gonzalez 10/25/2022 4:24 PM Signed Received faxed PA request for Eliquis 5mg from [employer]. Madonnamirafabián Carlos October 25, 2022 4:24 PM See below: Erika Shore RN 10/26/2022 9:13 AM Signed Per cover my meds: Sanam Benjamin RN Allergies As of Date: 10/25/2022 (No Known Allergies) Date Reviewed: 12/29/2021 Reviewed by: Lacho Saldivar - Fully Assessed Reason for Visit: Received Request for PA for Eliquis [Other] Prescriptions as of 10/26/2022 - losartan (COZAAR) 50 mg tablet Take 1 tablet by mouth once daily. - apixaban (ELIQUIS) 5 mg tab(s) Take 1 tablet by mouth twice daily. - metoprolol succinate ER (TOPROL XL) 25 mg 24 hr tablet Take 25 mg by mouth once daily. - atorvastatin (LIPITOR) 40 mg tablet Take 40 mg by mouth once daily. - metFORMIN (GLUCOPHAGE) 500 mg tablet Take 1,000 mg by mouth daily with breakfast. Facility-Administered Medications as of 10/26/2022 - perflutren lipid microspheres 1.3 mL in NaCl (PF) 0.9% 10 mL injection (DEFINITY) - sodium chloride 0.9 % (flush) 10 mL (BD POSIFLUSH) - perflutren lipid microspheres 1.3 mL in NaCl (PF) 0.9% 10 mL injection (DEFINITY) - sodium chloride 0.9 % (flush) 10 mL (BD POSIFLUSH) Problem List As Of Date 10/25/2022 Noted Resolved CVA (cerebral vascular accident) (HCC) [I63.9] 10/22/2021 Mixed hyperlipidemia [E78.2] 10/22/2021 Diabetes (HCC) [E11.9] 10/22/2021 Obesity (BMI 30-39.9) [E66.9] 10/22/2021 Episodic atrial flutter (HCC) [I48.92] 10/22/2021 Hemorrhoids [K64.9] 10/22/2021 Obesity, Class I, BMI 30-34.9 [E66.9] 10/27/2021 Paroxysmal atrial fibrillation (HCC) [I48.0] 10/27/2021 History of stroke [Z86.73] 10/27/2021 Elevated blood pressure reading without diagnos*10/27/2021 Encounter Status:Closed by SANAM BENJAMIN on 10/26/22 Normal [facility] Vital Signs Date Time Vital Sign Value Performing Clinician Faci iona 02-25-2025 08:38-0400 Body height 175.[address] Abraham Coker MD Work Phone: [facility] 02-25-2025 08:35-0400 Body mass index (BMI) [Ratio] 33.2 kg/m2 Dr. Abraham Coker MD Work Phone: [facility] 02-25-2025 08:35-0400 Body weight 102.[address] Abraahm Coker MD Work Phone: [facility] 02-25-2025 08:35-0400 Diastolic blood pressure 80 mm[Hg] Dr. Abraham Coker MD Work Phone: [facility] 02-25-2025 08:35-0400 Heart rate 60 /min Dr. Abraham Coker MD Work Phone: [facility] 02-25-2025 08:35-0400 Respiratory rate 18 /min Dr. Abraham Coker MD Work Phone: [facility] 02-25-2025 08:35-0400 SaO2% (BldA) [Mass fraction] 95 % Dr. Abraham Coker MD Work Phone: [facility] 02-25-2025 08:35-0400 Systolic blood pressure 122 mm[Hg] Dr. Abraham Coker MD Work Phone: [facility] 12-28-2022 14:49-0500 Body height 175.3 cm Jose Chatman MD Work Phone: [facility] 12-28-2022 14:49-0500 Body weight 105.23 kg Jose Chatman MD Work Phone: [facility] 12-28-2022 14:49-0500 Diastolic blood pressure 74 mm[Hg] Jose Chatman MD Work Phone: [facility] 12-28-2022 14:49-0500 Heart rate 69 /min Jose Chatman MD Work Phone: [facility] 12-28-2022 14:49-0500 SaO2% (BldA) [Mass fraction] 97 % Jose Chatman MD Work Phone: [facility] 12-28-2022 14:49-0500 Systolic blood pressure 146 mm[Hg] Jose Chatman MD Work Phone: [facility] Encounters Encounter Date Encounter Type Care Provider Facility Start: 07-01-2025 End: 07-01-[address] Abraham Coker MD Work Phone: -[facility] [place] Start: 07-01-2025 End: 07-01-2025 Patient encounter procedure Tito Hutchison [facility] -[facility] [place] Work Phone: Start: 07-01-2025 End: 07-01-2025 ambulatory Abraham Coker Facility:[facility] Start: 03-10-2025 End: 03-10-[address] Abraham Coker MD Work Phone: [facility] Work Phone: Start: 03-10-2025 End: 03-10-[address] [facility] Start: 03-10-2025 End: 03-10-2025 ambulatory Abraham Coker Facility:[facility] Start: 02-25-2025 End: 02-25-2025 Patient encounter procedure Minerva Gómez [facility] -[facility] Work Phone: Start: 02-25-2025 End: 02-25-2025 ambulatory Abraham Coker Facility:[facility] Start: 11-29-2024 End: 11-29-[address] Abraham Coker MD -[facility] Start: 11-29-2024 End: 11-29-2024 ambulatory Abraham Coker Facility:[facility] Start: 07-16-2024 End: 07-16-2024 ambulatory Eric Espinoza Facility:[facility] Start: 10-19-2023 ambulatory Jose crowell MD Work Phone: Cardiology Comment on above: Heart monitor Start: 09-29-2023 End: 09-29-2023 ambulatory [facility] Work Phone: Start: 09-29-2023 End: 09-29-2023 Patient encounter procedure [facility] Start: 03-29-2023 Refill Mauro Pineda MD Work Phone: Cardiology Comment on above: Refill Request Start: 03-10-2023 End: 03-10-2023 ambulatory [facility] Work Phone: Start: 03-10-2023 End: 03-10-2023 Patient encounter procedure [facility] Start: 12-28-2022 End: 12-29-2022 ambulatory ABRAHAM COKER Facility:[facility] Start: 12-28-2022 End: 12-28-2022 Patient encounter procedure Jose Chatman MD Work Phone: Cardiology Comment on above: Paroxysmal atrial fi brillation (HCC) (Primary Dx) Start: 11-18-2022 Telephone encounter Mauro olson MD Work Phone: Cardiology Comment on above: Results Start: 10-25-2022 Telephone encounter Mauro olosn MD Work Phone: Cardiology Comment on above: Received Request for PA for Eliquis Start: 03-15-2022 ambulatory Mauro Pineda MD Work Phone: Cardiology Comment on above: Should I continue lo sartan? Procedures Date Procedure Procedure Detail Performing Clinician Start: 07-01-2025 X-ray of foot, three or more views Dr. Abraham Coker MD Work Phone: Plan of Treatment Date Care Activity Detail Author Start: 07-21-2023 Covid-19 Vaccine ( season) Covid-19 Vaccine ( season) [facility] Start: 07-21-2023 Influenza vaccination [facility] Start: 11-20-2022 DEPRESSION ASSESSMENT DEPRESSION ASS ESSMENT [facility] Start: 07-21-2022 Influenza vaccination C [facility] Start: 04-27-2022 Hemoglobin A1c/Hemoglobin.total in Blood HBA1C [facility] Start: 11-20-2021 DEPRESSION ASSESSMENT DEPRESSION ASS ESSMENT [facility] Start: 2020 SHINGRIX VACCINE (1 of 2) SHINGRIX V ACCINE (1 of 2) [facility] Start: 2015 COLOGUARD (FIT-DNA) COLOGUARD (FIT-D NA) [facility] Start: 2015 Colonoscopy COLONOSCOPY [facility] Start: 2015 COLORECTAL CANCER SCREENING COLORECTAL CANCER SCREENING [facility] Start: [address] COLONOGRAPHY [facility] Start: 2015 FECAL OCCULT BLOOD FECAL OCCULT BLOO D [facility] Start: 2015 SIGMOIDOSCOPY SIGMOIDOSCOPY [facility] Start: 1989 Urine microalbumin profile [facility] Start: 1988 ANNUAL PCP TEAM BIOLOGY INTERN KENRICK DISEASE VISIT ANNUAL PCP TEAM CHRONIC DISEASE VISIT [facility] Start: 1988 Hepatitis B surface antibody level LDL CHOLESTEROL [facility] Start: 1988 HEPATITIS C SCREENING HEPATITIS C SC AMBERLYNING [facility] Start: 1988 HIV SCREENING HIV SCREENING [facility] Start: 1986 ONE PNEUMOVAX PRIOR TO AGE 65 ONE PNEUMOVAX PRIOR TO AGE 65 [facility] Start: 1982 Adult depression scr eening assessment DEPRESSION SCREENING [facility] Start: 1980 3 comp foot exam completed DIABETIC FOOT EXAM [facility] Start: 1980 Hepatitis B screening URINE AL BUMIN:CREATININE RATIO [facility] Start: 1980 Hepatitis C antibody , confirmatory test DILATED RETINAL EXAM [facility] Start: 1976 PNEUMOCOCCAL (1 - PCV) PNEUMOCOCCAL (1 - PCV) [facility] Start: 1976 Pneumococcal vaccination Pneum ococcal Vaccine (1 - PCV) [facility] Start: 1970 HEPATITIS B (1 of 3 - 3-dose series) HEPATITIS B (1 of 3 - 3-dose series) [facility] Start: 1970 Hepatitis B Vaccine (1 of 3 - 3-dose series) Hepatitis B Vaccine (1 of 3 - 3-dose series) [facility] Immunizations Immunization Date Immunization Notes Care Provider Fa cility 11-10-2021 Covid (Pfizer) [facility] 03-03-2021 Covid (Pfizer) [facility] 01-30-2021 Covid (Pfizer) [facility] Payers Date Payer Category Payer Self-pay [id number] 2021 Private Health Insurance [id number] 2020 Private Health Insurance JUAN GODWIN OAP [id number] 2020-Present [phone] [address] [place] [address] Open Access [id number] 2020 Private Health Insurance [id number] Unknown [id number] Unknown [id number] Unknown [id number] 62 Unknown [id number] 62 Unknown [id number] 62 Unknown [id number] Social History Date Type Detail Facility Start: 08-20-2021 End: 07-16-2024 Tobacco smoking status NHIS Never smoked tobacco [facility] Start: 08-20-2021 End: 12-28-2022 Tobacco use and exposure Smokeless tobacco non-user [facility] Start: 12-29-2021 End: 12-28-2022 Alcohol intake Current drinker of alcohol (finding) [facility] Start: 08-20-2021 History SDOH Alcohol Comment social [facility] Start: 1970 Sex Assigned At Male [facility] Start: 11-11-2021 End: 11-11-2021 Tobacco smoking status NHIS Unknown if ever smoked [facility] Start: 12-28-2022 History of Social function [facility] Start: 12-28-2022 Tobacco use panel [facility] National Score (1-10 0), lower number is lower risk 64 [facility] Start: 10-27-2021 Gender identity Identifies as male gender (finding) [facility] Start: 10-27-2021 Sexual orientation Heterosexual (fin ding) [facility] Start: 03-13-2025 Sex Male (finding) [facility] Clinical Notes 10-26-2022 to 07-02-2025 Note Date & Type Note Facility 07-02-2025 Radiology Diagnostic study note [facility] Imaging Services [address] [place] [address] Foot min 3 Views MR#: [id number] Acct: [id number] Name: INDIGO MARTINEZ Rep #: [id number] : 1970 M 54 From: Demetrice Browning MD PCP: Dr. Abraham Coker MD Status: RE G CLI Study:Foot min 3 Views Date of Exam: 11/13 Exam# [id number] Ordering Dr: Tito Hutchison H[facility]ER [facility] PROCEDURE: FOOT MIN 3 VIEWS 07/01/2025 REASON FOR EXAM: PAIN, REDNESS TECHNIQUE: FOOT MIN 3 VIEWS Laterality: Right COMPARISON: No FINDINGS: Old 5th metatarsal fracture. Mild 1st MTP joint osteoarthritis. Posterior and plantar calcaneal spurs. No acute bone or soft tissue pathology. RAD/Foot min 3 Views IMPRESSION: No acute findings Reading [facility] CC: Tito LÓPEZ NP-Brooks Hutchison; Dr. Abraham Coker MD ~ Community Service Officer Coordinator: Signed [facility] 02-25-2025 Evaluation note Diagnosis Onset Date Resolution Atrial fibrillation acute February 25, 2025 8:25am History of stroke acute February 252024 8:25am Suspected sleep apnea acute Apr 2024 8:25am Hypertension chronic February 25, 025 8:25am [facility] Work Phone: [phone]) 915-315412-01-2023 Miscellaneous Notes* Telephone Encounter - Randa Carr RN - 10/20/2023 12:27 PM EST Images from the original note were not included. Messaged patient Randa Carr RN * Telephone Encounter - Randa Carr RN - 10/20/2023 8:58 AM EST Images from the original note were not included. [facility] 12/28/2022 PLAN: Continue current medication regimen. Shared decision after review of echo imaging and discussing his rather lack of associated symptoms,to continue with medical management/rate control strategy for his Afib/PVCs. Will place a one year followup though glad to connect sooner if/as any change clinically or new symptoms present [facility] Miscellaneous Notes* Telephone Encounter - Melba Gonzalez - 03/29/2023 9:02 AM EDT Pharmacy electronic RX request to request a refill on the medication(s) below: Requested Prescriptions Pending Prescriptions Disp Refills ELIQUIS 5 mg tab(s) [Pharmacy Med Name: ELIQUIS TABS 5MG] 180 tablet 3 Sig: TAKE 1 TABLET TWICE A DAY PHARMACY NAME [facility] / PHONE NUMBER: [phone] Mail Order RX Physician's Name: Mauro Coppola M.D. Last seen in office: 12/28/2022 If last appointment greater than one year or no follow up scheduled, sent to schedulers Abbey Gonzalez 03/29/2023 documented in this [facility]-2023 NoteHNO ID: [id number] Author: Jose Chatman MD Service: ? Author Type: Physician Type: Progress Notes Filed: 12/28/2022 3:49 PM Note Text: Heart and Vascular [facility] Department of Cardiovascular Medicine SECTION OF CLINICAL CARDIOLOGY OUTPATIENT VISIT DATE December 28, 2022 OUTPATIENT VISIT TYPE ESTABLISHED PRIMARY CARE PHYSICIAN: Abraham Coker MD [facility] [address] [place] [address] REFERRING PHYSICIAN: SELF CHIEF COMPLAINT: Followup HISTORY OF PRESENT ILLNESS: Mr. Martinez is a 52 year old male who presents today for a cardiovascular medicine follow-up visit. CARDIAC AND RELEVANT HISTORY: Atrial fibrillation, initially discovered preoperatively though confirmed on heart monitor (4% burden), on Eliquis 5mg BID. ChadsVasc 5. On Metoprolol succinate 25mg Hx of bleeding hemorrhoids post surgical intervention. No bleeding since. EF 50%, no RWMA (plot below) Mild LA dilation. Hx of reported flutter as well (has mild RA dilation) Zio showing 4% AF, average HR 65 bpm. No dyspnea, exertional intolerance, presyncope/syncope. Has some fleeting flutters in the center of his chest at times. PVC history, prior heart monitor; ~6% burden. SVT, heart monitor reported 62 episodes. HTN, on losartan DM HLD on Lipitor 40mg Stroke history Echo: Prior has seen colleague Dr. Pineda (December 2021) with plan at that time: High PVC burden and Paroxysmal atrial fibrillation, high [id number] score (5 stroke, DM, HTN, mild LV dysfunction), apixaban had to be stopped for a month till he got surgery for hemorroids and also for ischemic colitis after that. Now back on apixaban , should be taking 5 mg bid, but he is taking low dose 2.5 mg bid, talked about importance of proper dosing of DOACs. Also talked about Watchman device and AF ablation, his LV mild dysfunction could be in setting of AF with RVR before his surgery which was captured by EKG, his AF burden was 2% and PVC burden was 7% on zio patch, but he was not on beta blockers and had the stress of bleeding, anemia and surgery, we also talked today about catheter ablation for AF and PVC The final shared decision for now, given he is asymptomatic and continues to improve, to keep apixaban 5 mg bid , and metoprolol for now , repeat the echo and zio patch in six months and see him in clinic in six months to decide about whether or not to purse other invasive options Zio monitor 09/2022: CARDIAC MEDS: Losartan 50mg Eliquis 5mg BID Toprol XL 25mg daily Lipitor 40mg ASSESSMENT: Very pleasant 52 year old gentosvaldoean presenting with the above history and cardiovascular concerns. Patient of Dr. Rios (out of office; seeing in his place today). Afib, on OAC and BB (hx of hemorrhoid bleed, watchman has been discussed, concern for 50% EF iso ?tachyarrhythmia and may warrant ablation. Afib burden relatively low still at 4% on most recent heart monitor, PVC burden historically around 6%. PLAN: Continue current medication regimen. Shared decision after review of echo imaging and discussing his rather lack of associated symptoms, to continue with medical management/rate control strategy for his Afib/PVCs. Will place a one year followup though glad to connect sooner if/as any change clinically or new symptoms present. PAST MEDICAL HISTORY Diagnosis Date Atrial fibrillation (HCC) Atrial flutter (HCC) Diabetes mellitus (HCC) Hemorrhoids Hypercholesteremia Kidney stones Stroke (HCC) 08/2020 PAST SURGICAL HISTORY Procedure Laterality Date PAST SURGICAL HISTORY OF 11/04/2021 Anorectal exam under anesthesia, rigid proctoscopy, excision of hemorrhoids in right posterior and left lateral positions in open technique according to [place], flexible sigmoidoscopy, and endoscopic resection of sigmoid polyp. PAST SURGICAL HISTORY OF 11/04/2021 excision of hemorrhoids, flexible sigmoidoscopy SOCIAL HISTORY Social History Tobacco Use Smoking status: Never Smokeless tobacco: Never Vaping Use Vaping Use: Never used Substance Use Topics Alcohol use: Yes Comment: social Drug use: Never FAMILY HISTORY Problem Relation Age of Onset No Known Problems Mother No Known Problems Father ALLERGIES: ALLERGIES No Known Allergies MEDICATIONS: losartan (COZAAR) 50 mg tabletTake 1 tablet by mouth once daily.Disp: 90 tabletRfl: 3 apixaban (ELIQUIS) 5 mg tab(s)Take 1 tablet by mouth twice daily.Disp: 180 tabletRfl: 3 metoprolol succinate ER (TOPROL XL) 25 mg 24 hr tabletTake 25 mg by mouth once daily.Disp: Rfl: atorvastatin (LIPITOR) 40 mg tabletTake 40 mg by mouth once daily. Disp: Rfl: metFORMIN (GLUCOPHAGE) 500 mg tabletTake 1,000 mg by mouth daily with breakfast. Disp: Rfl: Entries in BOLD are positive ROS endorsed by the patient. All other ROS has been reviewed and is negative with t (more content not included)...[facility]02-08-2023 History of Present illness Narrative* Jose Chatman MD - 12/28/2022 1:08 PM EST Images from the original note were not included. [facility] Department of Cardiovascular Medicine SECTION OF CLINICAL CARDIOLOGY OUTPATIENT VISIT DATE December 28, 2022 OUTPATIENT VISIT TYPE ESTABLISHED PRIMARY CARE PHYSICIAN: Abraham Coker MD [facility] [place] [address] [place] [address] REFERRING PHYSICIAN: SELF CHIEF COMPLAINT: Followup HISTORY OF PRESENT ILLNESS: Mr. Martinez is a 52 year old male who presents today for a cardiovascular medicine follow-up visit. CARDIAC & RELEVANT HISTORY: Atrial fibrillation, initially discovered preoperatively though confirmed on heart monitor (4% burden), on Eliquis 5mg BID. ChadsVasc 5. On Metoprolol succinate 25mg Hx of bleeding hemorrhoids post surgical intervention. No bleeding since. EF 50%, no RWMA (plot below) Mild LA dilation. Hx of reported flutter as well (has mild RA dilation) Zio showing 4% AF, average HR 65 bpm. No dyspnea, exertional intolerance, presyncope/syncope. Has some fleeting flutters in the center ofhis chest at times. PVC history, prior heart monitor; ~6% burden. SVT, heart monitor reported 62 episodes. HTN, on losartan DM HLD on Lipitor 40mg Stroke history Echo: Prior has seen colleague Dr. Pineda (December 2021) with plan at that time: High PVC burden and Paroxysmal atrial fibrillation, high [id number] score (5 stroke, DM, HTN, mild LV dysfunction), apixaban had to be stopped for a month till he got surgery for hemorroids and also for ischemic colitis after that. Now back on apixaban , should be taking 5 mg bid, but he is taking low dose 2.5 mg bid, talked about importance of proper dosing of DOACs. Also talked about Watchman device and AF ablation, his LV mild dysfunction could be in setting of AF with RVR before his surgerywhich was captured by EKG, his AF burden was 2% and PVC burden was 7% on zio patch, but he was not on beta blockers and had the stress of bleeding, anemia and surgery, we also talked today about catheter ablation for AF and PVC The final shared decision for now, given he is asymptomatic and continues to improve, to keep apixaban 5 mg bid , and metoprolol for now , repeat the echo and zio patch in six months and see him in clinic in six months to decide about whether or not to purse other invasive options Zio monitor 09/2022: CARDIAC MEDS: Losartan 50mg Eliquis 5mg BID Toprol XL 25mg daily Lipitor 40mg ASSESSMENT: Very pleasant 52 year old gentosvaldoean presenting with the above history and cardiovascular concerns. Patient of Dr. Pineda' (out of office; seeing in his place today). Afib, on OAC and BB (hx of hemorrhoid bleed, watchman has been discussed, concern for 50% EF iso ?tachyarrhythmia and may warrant ablation. Afib burden relatively low still at 4% on most recent heartmonitor, PVC burden historically around 6%. PLAN: Continue current medication regimen. Shared decision after review of echo imaging and discussing his rather lack of associated symptoms,to continue with medical management/rate control strategy for his Afib/PVCs. Will place a one year followup though glad to connect sooner if/as any change clinically or new symptoms present. PAST MEDICAL HISTORY Diagnosis Date Atrial fibrillation (HCC) Atrial flutter (HCC) Diabetes mellitus (HCC) Hemorrhoids Hypercholesteremia Kidney stones Stroke (HCC) 08/2020 PAST SURGICAL HISTORY Procedure Laterality Date PAST SURGICAL HISTORY OF 11/04/2021 Anorectal exam under anesthesia, rigid proctoscopy, excision of hemorrhoids in right posterior and left lateral positions in open technique according to [place]-Mark, flexible sigmoidoscopy, and endoscopic resection of sigmoid polyp. PAST SURGICAL HISTORY OF 11/04/2021 excision of hemorrhoids, flexible sigmoidoscopy SOCIAL HISTORY Social History Tobacco Use Smoking status: Never Smokeless tobacco: Never Vaping Use Vaping Use: Never used Substance Use Topics Alcohol use: Yes Comment: social Drug use: Never FAMILY HISTORY Problem Relation Age of Onset No Known Problems Mother No Known Problems Father ALLERGIES: ALLERGIES No Known Allergies MEDICATIONS: losartan (COZAAR) 50 mg tablet^Take 1 tablet by mouth once daily.^Disp: 90 tablet^Rfl: 3 apixaban (ELIQUIS) 5 mg tab(s)^Take 1 tablet by mouth twice daily.^Disp: 180 tablet^Rfl: 3 metoprolol succinate ER (TOPROL XL) 25 mg 24 hr tablet^Take 25 mg by mouth once daily.^Disp: ^Rfl: atorvastatin (LIPITOR) 40 mg tablet^Take 40 mg by mouth once daily. ^Disp: ^Rfl: metFORMIN (GLUCOPHAGE) 500 mg tablet^Take 1,000 mg by mouth daily with breakfast. ^Disp: ^Rfl: Entries in BOLD are positive ROS endorsed by the patient. All other ROS has been reviewed and is negative with the exception of the BOLD entries. REVIEW OF SYSTEMS: CONSTITUTIONAL: No weight loss, malaise or fevers. HEENT: Negative for frequent or significant headaches, No changes in hearing or vision, no nose bleeds or other nasal problems. RESPIRATORY: Negative for cough, wheezing, or shortness of breath CARDIOVASCULAR: Negative for chest pain, leg swelling or palpitations GI: Negative for abdominal discomfort, blood in stools or black stools or change in bowel habits. : No history of dysuria, frequency, or incontinence and No difficulty urination, nocturia >1 times per night or hematuria. MUSCULOSKELETAL: Negative for joint pain or swelling, back pain or muscle pain. ENDOCRINE: Negative for cold or heat intolerance, polyuria, polydipsia and goiter HEMATOLOGIC/LYMPHATIC: Negative for prolonged bleeding, bruising easily or swollen nodes. NEUROLOGIC: No history or headaches, syncope, paralysis, seizures or tremors. INTEGUMENTARY: Negative for lesions, rash, and itching. PHYSICAL EXAMINATION: BP 146/74 (BP Site: Left Arm) Pulse 69 Ht 175.3 cm (5' 9) Wt 105.2 kg (232 lb) SpO2 97% BMI 34.26 kg/m General: Stable, with no apparent distress. Wearing a face mask. Neck: JVP 7cm @ 45deg. No carotid bruits. CV: RRR, S1 S2 normal, no murmurs, rubs, gallops Respiratory: Clear to posterior auscultation x 2. GI: No palpable aneurysm Extremities: Intact peripheral pulses. Integumentary: No edema. Neuro: Intact speech/language. Non-focal motor/sensory exam. CARDIOVASCULAR MEDICINE TESTING: Last EKG Result Conclusion ECG COMPLETE Collected: 12/29/2021 3:19 PM (Final result) Impression: NORMAL SINUS RHYTHM NORMAL ECG Confirmed by MD JAMES, PhD, CHI ([id number]) on 12/30/2021 9:30:15 AM I personally reviewed the echo, ECG, labs. In addition to the above history and physical exam, the results of prior labs and testing were reviewed. The above plan and care goals address current medical problems and optimize control of cardiovascular risk factors to reduce the risk of future heart disease. Time was spent counseling and/or coordinating care for the patient, including discussion of the natural history of related disease, current treatment options, and future prognosis. I encourage lifestyle modifications including a heart healthy diet, exercise, blood pressure control and smoking cessation, if applicable, as well as general heart health/prevention. Please reach out to me with questions/concerns at any time. To note, [employer] messages that are non-urgent do have a 72 hour window for response by either myself or one of my staff. Thank you for our visit today. It's a privilege to help lead your care. Jose Chatman MD, MPH Staff Magnetic Observer Section of Clinical Cardiology Heart, Vascular and Thoracic [facility] [address] [place] [address] Office: [phone] documented in this encounterTogus Va Medical Center12-30-2022 Miscellaneous Notes* Telephone Encounter - La Nena Cleaning RN - 11/18/2022 1:48 PM EST Antonio GuyFrancia called from [employer]: Patient wore from 10/04/2022-10/10/2022 4% burden Afib, episode was flagged for average HR of 164 BPM sustained for 60 seconds. On page 11 strip 5. Patient did provide 2 triggers both times patient in NSR. La Nena Cleaning RN documented in this encounterTogus [facility] Center12-07-2022 Miscellaneous Notes* Telephone Encounter - Sanam Benjamin RN - 10/26/2022 9:13 AM EST Images from the original note were not included. Per cover my meds: Sanam Benjamin RN * Telephone Encounter - Melba Gonzalez - 10/25/2022 4:23 PM EST Images from the original note were not included. Received faxed PA request for Eliquis 5mg from [employer]. 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 Expl anation Advance Directive(s) 10/21/2021 8:25 AM Advance Directive Response Recorded Date/ Time Living Will No November 11 3:46pm Power of Superintendent [employer] No November 11, 2021 3:46pm Advance Directive Response Recorded Date/ Time Living Will No November 11 2:46pm Power of Superintendent [employer] No November 11, 2021 2:46pm Summary Purpose Family History No Family History Records FoundNo Family History Records Found Chief Complaint and Reason for Visit Chief Complaint Admit Date 6 M FU February 25, 2025 8:25 am Reason for Visit Admit Date Atrial fibrillation February 25, 2025 8:25 am History of stroke February 25, 2025 8:25 am Suspected sleep apnea February 25, 2025 8: 25am Hypertension February 25, 2025 8:25 am Chief Complaint Admit Date EORDER- RIGHT FOOT July 01, 2025 1: 42pm Additional Source Comments Source Comments (unrecognize d section and content) In the event this informatio n is protected by the Federal Confidentiality of Alcohol and Drug Abuse Patient Records regulations: The Federal rules restrict any use of the information to criminally investigate or prosecute any alcohol or drug abuse patient.[facility] the event this information is protected by the Federal Confidentiality of Alcohol and Drug Abuse Patient Records regulations: The Federal rules restrict any use of the information to criminally investigate or prosecute any alcohol or drug abuse patient.[facility] the event this information is protected by the Federal Confidentiality of Alcohol and Drug Abuse Patient Records regulations: The Federal rules restrict any use of the information to criminally investigate or prosecute any alcohol or drug abuse patient.[facility] the event this information is protected by the Federal Confidentiality of Alcohol and Drug Abuse Patient Records regulations: The Federal rules restrict any use of the information to criminally investigate or prosecute any alcohol or drug abuse patient.[facility] the event this information is protected by the Federal Confidentiality of Alcohol and Drug Abuse Patient Records regulations: The Federal rules restrict any use of the information to criminally investigate or prosecute any alcohol or drug abuse patient.[facility] Center[facility] the event this information is protected by the Federal Confidentiality of Alcohol and Drug Abuse Patient Records regulations: The Federal rules restrict any use of the information to criminally investigate or prosecute any alcohol or drug abuse patient.[facility] Care Teams (unrecognized sec tion and content) Fire Warden Relationship Specialty Start Date End Date Abraham Coker [address] [place] [address] PCP - General Family Practice 08/16/21 Mauro Pineda MD [address] [place] [address] Primary Staff Physician Cardiology 10/27/21 Fire Warden Relationship Specialty Start Date End Date Abraham Coker [address] [facility] [address] [place] [address] PCP - General Family Medicine 08/16/21 Mauro Pineda MD [address] [place] [address] Primary Staff Physician Cardiology 10/27/21 Fire Warden Relationship Specialty Start Date End Date Abraham Coker [address] [facility] [address] [place] [address] PCP - General Family Medicine 08/16/21 Mauro Pineda MD [address] [place] [address] Primary Staff Physician Cardiology 10/27/21 Fire Warden Relationship Specialty Start Date End Date Abraham Coker [address] [facility] [address] [place] [address] PCP - General Family Medicine 08/16/21 Mauro Pineda MD [address] [facility] [place] [address] Primary Staff Physician Cardiology 10/27/21 Team Status: Active Member Role Status Dates Dr. Abraham Coker MD Primary Care Provider Active Team Status: Inactive Member Role Status Dates Dr. Abraham Coker MD Primary Care Provider, Attend ing Provider Active Fire Warden Relationship Specialty Start Date End Date Abraham Coker [address] [facility] [address] [place] [address] PCP - General Family Medicine 08/16/21 Mauro Pineda MD [address] [place] [address] Primary Staff Physician Cardiology 10/27/21 Fire Warden Relationship Specialty Start Date End Date Abraham Coker MD Celia [address] [place] [address] PCP - General Family Medicine 08/16/21 Mauro Pineda MD [address] [place] [address] Primary Staff Physician Cardiology 10/27/21 Team Status: Inactive Member Role Status Dates Dr. Abraham Coker MD Primary Care Provider Active Start: November 29, 2024 End: November 29, 2024 Dr. Abraham Coker MD Attending Provider Active Start: November 29, 2024 End: November 29, 2024 Dr. Abraham Coker MD Referring Provider Active Start: November 29, 2024 End: November 29, 2024 Team Status: Inactive Member Role Status Dates Dr. Abraham Coker MD Primary Care Provider Active Start: February 25, 2025 End: February 25, 2025 Dr. Abraham Coker MD Referring Provider Active Start: February 25, 2025 End: February 25, 2025 Minerva Gómez HARNESS PULLER, HARNESS PULLER-C Attending Provider Active Start: February 25, 2025 End: February 25, 2025 Team Status: Inactive Member Role Status Dates Dr. Abraham Coker MD Primary Care Provider Active Start: March 10, 2025 End: March 10, 2025 Dr. Abraham Coker MD Attending Provider Active Start: March 10, 2025 End: March 10, 2025 Dr. Abraham Coker MD Referring Provider Active Start: March 10, 2025 End: March 10, 2025 Team Status: Active Member Role/Relationship Status Dates Dr. Abraham Coker MD Primary Care Provider Active Team Status: Inactive Member Role/Relationship Status Dates Dr. Abraham Coker MD Primary Care Provider Active Start: March 10, 2025 End: March 10, 2025 Dr. Abraham Coker MD Attending Provider Active Start: March 10, 2025 End: March 10, 2025 Dr. Abraham Coker MD Referring Provider Active Start: March 10, 2025 End: March 10, 2025 Team Status: Inactive Member Role/Relationship Status Dates Dr. Abraham Coker MD Primary Care Provider Active Start: July 01, 2025 End: July 01, 2025 Tito Hutchison HARNESS PULLER, HARNESS PULLERCesarC Attending Provider Active Start: July 01, 2025 End: July 01, 2025 Tito Hutchison NP HARNESS PULLER-C Referring Provider Active Start: July 01, 2025 End: July 01, 2025 Reason for Visit (unrecogniz ed section and content) Reason Comments Received Request for PA for Eliquis Reason Comments Results Reason Comments Follow Up Reason Comments Refill Request (unrecognized sect ion and content) No Status Records FoundNo Status Records Found INFORMATION SOURCE (unrecogn ized section and content) DATE CREATED AUTHOR 01/04/2023 [facility] DATE CREATED AUTHOR AUTHOR'S CHANO TREVINO 07/10/2025 [facility] Goals (unrecognized section and content) Goals may be documented in a n alternate sectionGoals may be documented in an alternate sectionGoals may be documented in an alternate sectionGoals may be documented in an alternate section FOR RECORDS PERTAINING TO PATIENTS WHO ARE OR HAVE BEEN ENROLLED IN A CHEMICAL DEPENDENCY/SUBSTANCEABUSE PROGRAM, SOME INFORMATION MAY BE OMITTED. This clinical summary was aggregated from multiple sources. Caution should be exercised in using it in the provision of clinical care. This summary normalizes information from multiple sources, and as a consequence, information in this document may materially change the coding, format and clinical context of patient data. In addition, data may be omitted in some cases. CLINICAL DECISIONS SHOULD BE BASED ON THE PRIMARY CLINICAL RECORDS. [employer] provides no warranty or guarantee of the accuracy or completeness of information in this document.
[2025-08-01 10:26] LABS: Color, Urine Yellow (Yellow); Glucose, Dipstick Normal (Normal); Hematocrit 44.6 % (40-54); Hemoglobin 15.1 g/dL (13.0-16.5); Immature Granulocytes Count 0.040 X10^3/uL (0.0-0.0); Ketone-Dipstick Negative (Negative); Leukocyte Esterase-Dipstick Negative /ul (Negative); Mean Corp Hgb Conc 33.9 g/dL (32-36); Mean Corpuscular Volume 85.0 fL (80-94); Mean Platelet Vol. 10.2 fl (6.2-12.0); NRBC Flagged by Analyzer 0 % (0-5); Nitrite-Dipstick Negative (Negative); Occult Blood-Urine 10 /ul (Negative); Platelet Count 201 K/mm3 (150-450); Protein-Dipstick 30 mg/dl (Negative); RBC Distribution Width CV 13.4 % (11.6-14.6); RBC Distribution Width SD 41.8 fl (35.1-43.9); Red Blood Count 5.25 M/mm3 (4.6-6.2); Specific Gravity, Urine 1.025 (1.002-1.030); Urine Bilirubin Dipstick Negative (Negative); White Blood Count 4.5 K/mm3 (4.4-11.0)
[2025-08-01 10:45] LABS: Creatinine, Urine (random) 269.00 mg/dL (39.00-259.00); Microalbumin,Random Urine < 12.0 mg/L (<20 mg/L)
[2025-08-01 10:48] LABS: AST(SGOT) 23 U/L (<=37); Alanine Aminotransfer ALT/SGPT 38 U/L (<=46); Albumin, Serum 4.2 g/dL (3.5-5.0); Alkaline Phosphatase 71 U/L (40-129); Anion Gap 13 (5-15); BUN 16 mg/dL (4-19); BUN/Creat Ratio 16.2 RATIO (10-20); Calcium,Total 8.8 mg/dL (7.6-11.0); Carbon Dioxide 25.3 mmol/L (21.0-32.0); Chloride 103 mmol/L (98-108); Cholesterol 111 mg/dL (<=200); Globulin 2.7 g/dL (2.2-4.2); Glucose 139 mg/dL (70-99); Low Density Lipoprotein Calc. 57 mg/dL; Magnesium 2.3 mg/dL (1.5-2.2); Potassium 3.7 mmol/L (3.3-5.1); Triglycerides 78 mg/dL; Very Low Density Lipoprotein 16 mg/dL (5-40); cholesterol:hdl ratio screen 2.87
[2025-08-01 10:51] LABS: Mucous, Urine 1+ /hpf (<or=2+); Red Blood Cells-Urine 0-5 SEEN /hpf (0-5)
== END | disposition home or self-care (01) ==
LOC: MFPLAB 09:02
PROVIDERS: PCP Family Medicine; Referring Provider Family Medicine; Visit Provider Family Medicine
DX: E11.8 Type 2 diabetes mellitus with unspecified complications (principal); I48.91 Unspecified atrial fibrillation
CPT/HCPCS: 80053; 80061; 81001; 82043; 82570; 83036; 83735; 85025

== ENCOUNTER → 2025-11-11 | Outpatient (CLI) | payer OTHER, SELFPAY ==
[2025-11-11 17:49] LABS: Creatinine, Urine (random) 89.60 mg/dL (39.00-259.00); Microalbumin,Random Urine < 12.0 mg/L (<20 mg/L)
[2025-11-11 17:54] LABS: Hematocrit 47.1 % (40-54); Hemoglobin 15.8 g/dL (13.0-16.5); Immature Granulocytes Count 0.030 X10^3/uL (0.0-0.0); Mean Corp Hgb Conc 33.5 g/dL (32-36); Mean Corpuscular Volume 86.7 fL (80-94); Mean Platelet Vol. 10.2 fl (6.2-12.0); NRBC Flagged by Analyzer 0 % (0-5); Platelet Count 237 K/mm3 (150-450); RBC Distribution Width CV 13.4 % (11.6-14.6); RBC Distribution Width SD 42.1 fl (35.1-43.9); Red Blood Count 5.43 M/mm3 (4.6-6.2); White Blood Count 5.8 K/mm3 (4.4-11.0)
--- OUTSIDE RECORDS SUMMARY | 2025-11-11 17:58 | XMS RPT_ITS | CCD ---
Author Organization [facility] Care Team Providers Care Supervisor Decorating Name Role Phone Abraham Coker Primary Care [...] Provider Dr. Abraham Coker MD Referring Provider Minerva Mak Attending Provider Dr. Abraham Coker MD Primary Care Provider Dr. Abraham Coker MD Attending Provider Dr. Abraham Coker MD Referring Provider Kianna LÓPEZ-Tito Guy Attending Provider Kianna LASER MACHINE OPERATOR-CTito Referring Provider Abraham Coker Primary Care Unavailable T[place]orrow Tito LÓPEZ Attending Unavailable Tito Hutchison NP Referring Unavailable Abraham Coker Primary Care Unavailable Abraham Coker Attending Unavailable Abraham Coker Referring Unavailable Abraham Coker Primary Care Unavailable Abraham Coker Attending Unavailable Abraham Coker Referring Unavailable Abraham Coker Primary Care Unavailable Minerva Gómez NP Attending Unavailable Abraham Coker Referring Unavailable Abraham Coker Primary Care Unavailable Abraham Coker Attending Unavailable Abraham Coker Referring Unavailable Dr. Abraham Coker MD Primary Care Physician [place] LASER MACHINE OPERATOREunice, Tito Attending Physician Dr. Abraham Coker MD Attending Physician Dr. Abraham Coker MD Referring Provider [phone] Medications Current Medications Medication Drug Class(es) Dates Sig (Normalized) Sig (Original) atorvastatin 40 mg oral tablet (11 sources) HMG-CoA Reductase Inhibitor Start: 06-15-2021 take 1 tablet by mouth once daily Comment on above: Take 40 mg by mouth once daily. hydroCHLOROthiazide 12.5 mg / losartan potassium 50 mg oral tablet (5 sources) Thiazide Diuretic, Angiotensin 2 Receptor Sridhar Start: 11-11-2021 Start: 11-11-2021 take 1 tablet by chantale [...] (flush ) 10 mL (BD POSIFLUSH) Tirzepatide (1 source) Start: 02-25-2025 Tirzepatide (Mounjaro) 5 mg/ 0.5 mL pen injector (2 sources) Start: 02-25-2025 Tirzepatide (M ounjaro) 5 mg/0.5 mL pen injector Active 5 mg SC EVERY WEEK February 25, 2025 12:00am Completed/Discontinued Medications Medication Drug Class(es) Dates Sig (Normalized) Sig (Original) apixaban 5 mg oral tablet (20 sources) Factor Xa Inhibitor Start: 11-11-2021 End: 02-25-2025 take 1 tablet by mouth twice daily Apixaban (Eliquis) 5 mg tablet Discontinued 5 mg PO TWICE A DAY 60 July 17, 2024 11:06am February 25, 2025 8:44am blood thinner Comment on above: Take 1 tablet by chantale th twice daily. TAKE 1 TABLET TWICE A DAY ibuprofen 200 mg oral tablet (8 sources) Nonsteroidal Anti-inflammatory Drug Start: 11-11-2021 ibuprofen [...] daily. metFORMIN hydrochloride 500 mg oral tablet (11 sources) Biguanide Start: 1 End: 5 take 1 tablet by mouth twice daily Metformin 500 mg tablet Discontinued 500 mg PO TWICE A DAY October 22, 2021 1:00am February 25, 2025 8:35am DM Start: 06-08-2021 take 2 tablets by mo [facility] once daily at breakfast metFORMIN (GLUCOPHAGE) 500 [...] Onset: 1 10-22-2021 Chronic Acute posthemorrhagic anemia (5 sources) Anemia following acute postoperative blood loss; Translations: [Acute posthemorrhagic anemia] 11-20-2021 Episodic Cardiac dysrhythmias (18 sources) Atrial flutter; Translations: [Unspecified atrial flutter] Onset: 1 10-22-2021 Chronic Cardiac dysrhythmias (5 sources) Palpitations; Translations: [Palpitations] 10-30-2021 Episodic Diabetes mellitus with complications (1 source) Type 2 diabetes mellitus with unspecified complications; Translations: [Type 2 diabetes mellitus with unspecified complications] Onset: 5 Chronic Diabetes mellitus without complication (9 sources) Diabetes mellitus; Translations: [Type 2 diabetes mellitus without complications] Onset: 1 10-22-2021 Chronic Disorders of lipid metabolism (6 sources) Mixed hyperlipidemia; Translations: [Mixed hyperlipidemia] Onset: 1 10-22-2021 Chronic Essential hypertension (4 sources) Hypertensive disorder; Translations: [Essential (primary) hypertension] 07-16-2024 Chronic Gastrointestinal hemorrhage (5 sources) Acute gastrointestinal hemorrhage; Translations: [Gastrointestinal hemorrhage, unspecified] 11-20-2021 Episodic Other circulatory disease (10 sources) History of cerebrovascular accident; Translations: [Personal history of transient ischemic attack (TIA), and cerebral infarction without residual deficits] Onset: 1 10-27-2021 Episodic Other circulatory disease (5 sources) Syncope due to orthostatic hypotension; Translations: [Orthostatic hypotension] 11-20-2021 Episodic Other connective tissue disease (4 sources) Suspected respiratory disease; Translations: [Other symptoms [...] subcutaneous tissue, unspecified] Onset: 5 Episodic Syncope (5 sources) Near syncope; Translations: [Syncope and collapse] [...] Test Name Value Interpretation Reference Range Facility Absolute lymphocyte countOrd ered By: Abraham Coker on 08-01-2025 Lymphocytes Auto (Unsp spec) [#/Vol] 0.97 10*3/uL 0.83-4.51 [facility] Absolute neutrophil countOrd ered By: Abraham Coker on 08-01-2025 Neutrophils (Bld) [#/Vol] 2.8 10*3/uL 2.0-7.7 [facility] Anion gap in Serum or Plasma Ordered By: Abraham Coker on 08-01-2025 Anion gap [Moles/Vol] 13 mmol/L 5-15 [facility] Automated lymphocyte count a s percentage of total leukocytesOrdered By: Abraham Coker on 08-01-2025 Lymphocytes/100 WBC Auto (Unsp spec) 21.7 % 19-41 [facility] BUN/creatinine ratioOrdered By: Abraham Coker on 08-01-2025 Urea nitrogen/Creatinine [Mass ratio] 16.2 mg/mg 10-20 [facility] Basophil percentageOrdered B y: Abraham Coker on 08-01-2025 Basophils/100 WBC (Bld) 0.4 % 0-1 [facility] Bilirubin Test strip Ql (U)O rdered By: Abraham Coker on 08-01-2025 Bilirubin Ql (U) Negative Negative [facility] Bilirubin, totalOrdered By: Abraham Coker on 08-01-2025 Bilirubin [Mass/Vol] 0.95 mg/dL 0.00-1.30 [facility] CBC W/Diff, Automatedon 07-21 Absolute Lymph 0.97 X10 3/uL Normal 0.83-4.51 [facility] Comment on above: Order Comment: Order Date: 11/29/24 Order Info: 4548-4 - A1C Performed By: #### L 501.9985, L502.0250, L500.4050, L100.0100, L500.4100, L501.5200 #### [facility] [address] [place], [address] Absolute Neut 2.8 X10 3/uL Normal 2.0-7.7 [facility] Comment on above: Order Comment: Order Date: 11/29/24 Order Info: 4548-4 - A1C Performed By: #### L 501.9985, L502.0250, L500.4050, L100.0100, L500.4100, L501.5200 #### [facility] [address] [place], [address] Basophils/100 WBC (Bld) 0.4 % Normal 0-1 [facility] Comment on above: Order Comment: Order Date: 11/29/24 Order Info: 4548-4 - A1C Performed By: #### L 501.9985, L502.0250, L500.4050, L100.0100, L500.4100, L501.5200 #### [facility] [address] [place], [address] Eosinophils/100 WBC (Bld) 2.2 % Normal 0-5 [facility] Comment on above: Order Comment: Order Date: 11/29/24 Order Info: 4548-4 - A1C Performed By: #### L 501.9985, L502.0250, L500.4050, L100.0100, L500.4100, L501.5200 #### [facility] [address] [place], [address] Erythrocyte distribution width (RBC) [Ratio] 13.4 % Normal 11.6-14.6 [facility] Comment on above: Order Comment: Order Date: 11/29/24 Order Info: 4548-4 - A1C Performed By: #### L 501.9985, L502.0250, L500.4050, L100.0100, L500.4100, L501.5200 #### [facility] [address] [place], [place], [phone] Hematocrit (Bld) [Volume fraction] 44.6 % Normal 40-54 [facility] Comment on above: Order Comment: Order Date: 11/29/24 Order Info: 4548-4 - A1C Performed By: #### L 501.9985, L502.0250, L500.4050, L100.0100, L500.4100, L501.5200 #### [facility] [address] [place], [address] Hemoglobin (Bld) [Mass/Vol] 15.1 g/dL Normal 13.0-16. 5 [facility] Comment on above: Order Comment: Order Date: 11/29/24 Order Info: 4548-4 - A1C Performed By: #### L 501.9985, L502.0250, L500.4050, L100.0100, L500.4100, L501.5200 #### [facility] [address] [place], [address] IG% 0.900 Normal 0.0-0.9 [facility] Comment on above: Order Comment: Order Date: 11/29/24 Order Info: 4548-4 - A1C Result Comment: IG% - Immature Granulocytes (promyelocytes, myelocytes and metamyelocytes) > 1% indicates that a LEFT SHIFT is Present. Performed By: #### L 501.9985, L502.0250, L500.4050, L100.0100, L500.4100, L501.5200 #### [facility] [address] [place], [address] Lymphocytes/100 WBC (Bld) 21.7 % Normal 19-41 [facility] Comment on above: Order Comment: Order Date: 11/29/24 Order Info: 4548-4 - A1C Performed By: #### L 501.9985, L502.0250, L500.4050, L100.0100, L500.4100, L501.5200 #### [facility] [address] [place], [address] MCH (RBC) [Entitic mass] 28.8 pg Normal 27.0-32.0 [facility] Comment on above: Order Comment: Order Date: 11/29/24 Order Info: 4548-4 - A1C Performed By: #### L 501.9985, L502.0250, L500.4050, L100.0100, L500.4100, L501.5200 #### [facility] [address] [place], [address] MCHC (RBC) [Mass/Vol] 33.9 g/dL Normal 32-36 [facility] Comment on above: Order Comment: Order Date: 11/29/24 Order Info: 4548-4 - A1C Performed By: #### L 501.9985, L502.0250, L500.4050, L100.0100, L500.4100, L501.5200 #### [facility] [address] [place], [address] MCV (RBC) [Entitic vol] 85.0 fL Normal 80-94 [facility] Comment on above: Order Comment: Order Date: 11/29/24 Order Info: 4548-4 - A1C Performed By: #### L 501.9985, L502.0250, L500.4050, L100.0100, L500.4100, L501.5200 #### [facility] [address] [place], [address] Monocytes/100 WBC (Bld) 11.2 % High 0-10 [facility] Comment on above: Order Comment: Order Date: 11/29/24 Order Info: 4548-4 - A1C Performed By: #### L 501.9985, L502.0250, L500.4050, L100.0100, L500.4100, L501.5200 #### [facility] [address] [place], [address] Neutrophils/100 WBC (Bld) 63.6 % Normal 47-70 [facility] Comment on above: Order Comment: Order Date: 11/29/24 Order Info: 4548-4 - A1C Performed By: #### L 501.9985, L502.0250, L500.4050, L100.0100, L500.4100, L501.5200 #### [facility] [address] [place], [address] Nucleated RBC (Bld) [#/Vol] 0 10*3/uL Normal 0-5 [facility] Comment on above: Order Comment: Order Date: 11/29/24 Order Info: 4548-4 - A1C Performed By: #### L 501.9985, L502.0250, L500.4050, L100.0100, L500.4100, L501.5200 #### [facility] [address] [place], [address] Platelet mean volume (Bld) [Entitic vol] 10.2 fL Normal 6.2-12.0 [facility] Comment on above: Order Comment: Order Date: 11/29/24 Order Info: 4548-4 - A1C Performed By: #### L 501.9985, L502.0250, L500.4050, L100.0100, L500.4100, L501.5200 #### [facility] [address] [place], [address] Platelets (Bld) [#/Vol] 201 10*3/uL Normal 150-450 [facility] Comment on above: Order Comment: Order Date: 11/29/24 Order Info: 4548-4 - A1C Performed By: #### L 501.9985, L502.0250, L500.4050, L100.0100, L500.4100, L501.5200 #### [facility] [address] [place], [address] RBC (Bld) [#/Vol] 5.25 10*6/uL Normal 4.6-6.2 [facility] Comment on above: Order Comment: Order Date: 11/29/24 Order Info: 4548-4 - A1C Performed By: #### L 501.9985, L502.0250, L500.4050, L100.0100, L500.4100, L501.5200 #### [facility] [address] [place], [address] RDW SD 41.8 fl Normal 35.1-43.9 [facility] Comment on above: Order Comment: Order Date: 11/29/24 Order Info: 4548-4 - A1C Performed By: #### L 501.9985, L502.0250, L500.4050, L100.0100, L500.4100, L501.5200 #### [facility] [address] [place], [address] WBC (Bld) [#/Vol] 4.5 10*3/uL Normal 4.4-11.0 [facility] Comment on above: Order Comment: Order Date: 11/29/24 Order Info: 4548-4 - A1C Performed By: #### L 501.9985, L502.0250, L500.4050, L100.0100, L500.4100, L501.5200 #### [facility] [address] [place], [place], [phone] Calculated very low density lipoprotein (VLDL) cholesterol measurementOrdered By: Abraham Coker on 08-01-2025 Calculated very low density lipoprotein (VLDL) cholesterol measurement 16 mg/dL 5-40 [facility] Carbon dioxide, total [Moles /volume] in Central venous bloodOrdered By: Abraham Coker on 08-01-2025 CO2 [Moles/Vol] 25.3 mmol/L 21.0-32.0 [facility] Chloride assayOrdered By: Rachana Coker on 08-01-2025 Chloride [Moles/Vol] 103 mmol/L 98-108 [facility] Comprehensive Metabolic Prof ilon 08-01-2025 Albumin [Mass/Vol] 4.2 g/dL Normal 3.5-5.0 [facility] Comment on above: Order Comment: Order Date: 11/29/24 Order Info: 4548-4 - A1C Performed By: #### L 501.9985, L502.0250, L500.4050, L100.0100, L500.4100, L501.5200 #### [facility] [address] [place], [place], [phone] Albumin/Globulin [Mass ratio] 1.5 {ratio} Normal 0.9-2.4 [facility] Comment on above: Order Comment: Order Date: 11/29/24 Order Info: 4548-4 - A1C Performed By: #### L 501.9985, L502.0250, L500.4050, L100.0100, L500.4100, L501.5200 #### [facility] [address] [place], [place], [id number] ALK PHOS 71 U/L Normal 40-129 [facility] Comment on above: Order Comment: Order Date: 11/29/24 Order Info: 4548-4 - A1C Performed By: #### L 501.9985, L502.0250, L500.4050, L100.0100, L500.4100, L501.5200 #### [facility] [address] [place], [address] ALT [Catalytic activity/Vol] 38 U/L Normal <=46 [facility] Comment on above: Order Comment: Order Date: 11/29/24 Order Info: 4548-4 - A1C Performed By: #### L 501.9985, L502.0250, L500.4050, L100.0100, L500.4100, L501.5200 #### [facility] [address] [place], [address] AST [Catalytic activity/Vol] 23 U/L Normal <=37 [facility] Comment on above: Order Comment: Order Date: 11/29/24 Order Info: 4548-4 - A1C Performed By: #### L 501.9985, L502.0250, L500.4050, L100.0100, L500.4100, L501.5200 #### [facility] [address] [place], [address] Bilirubin [Mass/Vol] 0.95 mg/dL Normal 0.00-1.30 [facility] Comment on above: Order Comment: Order Date: 11/29/24 Order Info: 4548-4 - A1C Performed By: #### L 501.9985, L502.0250, L500.4050, L100.0100, L500.4100, L501.5200 #### [facility] [address] [place], [address] BUN/CRE 16.2 RATIO Normal 10-20 [facility] Comment on above: Order Comment: Order Date: 11/29/24 Order Info: 4548-4 - A1C Performed By: #### L 501.9985, L502.0250, L500.4050, L100.0100, L500.4100, L501.5200 #### [facility] [address] [place], [place], [phone] Calcium [Mass/Vol] 8.8 mg/dL Normal 7.6-11.0 [facility] Comment on above: Order Comment: Order Date: 11/29/24 Order Info: 4548-4 - A1C Performed By: #### L 501.9985, L502.0250, L500.4050, L100.0100, L500.4100, L501.5200 #### [facility] [address] [place], [address] Chloride [Moles/Vol] 103 mmol/L Normal 98-108 [facility] Comment on above: Order Comment: Order Date: 11/29/24 Order Info: 4548-4 - A1C Performed By: #### L 501.9985, L502.0250, L500.4050, L100.0100, L500.4100, L501.5200 #### [facility] [address] [place], [place], [address] CO2 [Moles/Vol] 25.3 mmol/L Normal 21.0-32.0 [facility] Comment on above: Order Comment: Order Date: 11/29/24 Order Info: 4548-4 - A1C Performed By: #### L 501.9985, L502.0250, L500.4050, L100.0100, L500.4100, L501.5200 #### [facility] [address] [place], [address] Creatinine [Mass/Vol] 0.97 mg/dL Normal 0.70-1.20 [facility] Comment on above: Order Comment: Order Date: 11/29/24 Order Info: 4548-4 - A1C Performed By: #### L 501.9985, L502.0250, L500.4050, L100.0100, L500.4100, L501.5200 #### [facility] [address] [place], [address] GAP 13 Normal 5-15 [facility] Comment on above: Order Comment: Order Date: 11/29/24 Order Info: 4548-4 - A1C Performed By: #### L 501.9985, L502.0250, L500.4050, L100.0100, L500.4100, L501.5200 #### [facility] [address] [place], [address] GFR/1.73 sq M.predicted among non-blacks MDRD (S/P/Bld) [Vol rate/Area] 93 mL/min/{1.73_m2} Normal >60 [facility] Comment on above: Order Comment: Order Date: 11/29/24 Order Info: 4548-4 - A1C Result Comment: mL/m in/1.73m2 CKD-EPI Creatinine Equation (2020) Performed By: #### L 501.9985, L502.0250, L500.4050, L100.0100, L500.4100, L501.5200 #### [facility] [address] [place], [address] Globulin (S) [Mass/Vol] 2.7 g/dL Normal 2.2-4.2 [facility] Comment on above: Order Comment: Order Date: 11/29/24 Order Info: 4548-4 - A1C Performed By: #### L 501.9985, L502.0250, L500.4050, L100.0100, L500.4100, L501.5200 #### [facility] [address] [place], [address] Glucose [Mass/Vol] 139 mg/dL High 70-99 [facility] Comment on above: Order Comment: Order Date: 11/29/24 Order Info: 4548-4 - A1C Performed By: #### L 501.9985, L502.0250, L500.4050, L100.0100, L500.4100, L501.5200 #### [facility] [address] [place], [address] Potassium [Moles/Vol] 3.7 mmol/L Normal 3.3-5.1 [facility] Comment on above: Order Comment: Order Date: 11/29/24 Order Info: 4548-4 - A1C Performed By: #### L 501.9985, L502.0250, L500.4050, L100.0100, L500.4100, L501.5200 #### [facility] [address] [place], [address] Sodium [Moles/Vol] 141 mmol/L Normal 133-145 [facility] Comment on above: Order Comment: Order Date: 11/29/24 Order Info: 4548-4 - A1C Performed By: #### L 501.9985, L502.0250, L500.4050, L100.0100, L500.4100, L501.5200 #### [facility] [address] [place], [place], [id number] T PROT 6.9 g/dL Normal 5.9-8.4 [facility] Comment on above: Order Comment: Order Date: 11/29/24 Order Info: 4548-4 - A1C Performed By: #### L 501.9985, L502.0250, L500.4050, L100.0100, L500.4100, L501.5200 #### [facility] [address] [place], [address] Urea nitrogen [Mass/Vol] 16 mg/dL Normal 4-19 [facility] Comment on above: Order Comment: Order Date: 11/29/24 Order Info: 4548-4 - A1C Performed By: #### L 501.9985, L502.0250, L500.4050, L100.0100, L500.4100, L501.5200 #### [facility] [address] [place], [address] Eosinophil percentageOrdered By: Abraham Coker on 08-01-2025 Eosinophils/100 WBC (Bld) 2.2 % 0-5 [facility] Erythrocyte distribution wid th ratioOrdered By: Abraham Coker on 08-01-2025 Erythrocyte distribution width (RBC) [Ratio] 13.4 % 11.6-14.6 [facility] Erythrocyte distribution wid th standard deviationOrdered By: Abraham Coker on 08-01-2025 Erythrocyte distribution width (RBC) [Ratio] 41.8 fl 35.1-43.9 [facility] Glomerular filtration rate ( GFR) estimation/1.73 sq m using serum, plasma, or whole bOrdered By: Abraham Coker on 08-01-2025 GFR/1.73 sq M.predicted among non-blacks MDRD (S/P/Bld) [Vol rate/Area] 93 mL/min/{1.73_m2} >60 [facility] Comment on above: mL/min/1.73m2 CKD-EP I Creatinine Equation (2020) Hematocrit Auto (Bld) [Volum e fraction]Ordered By: Abraham Coker on 08-01-2025 Hematocrit (Bld) [Volume fraction] 44.6 % 40-54 [facility] Hemoglobin A1con 08-01-2025 HbA1c (Bld) [Mass fraction] 5.9 % High <=5.6 [facility] Comment on above: Order Comment: Order Date: 11/29/24 Order Info: 4548-4 - A1C Result Comment: Norm al < 5.7 % Prediabetic 5.7 - 6.4 % Diabetic >or= 6.5 % Please note range changes. Performed By: #### L 501.9985, L502.0250, L500.4050, L100.0100, L500.4100, L501.5200 #### [facility] [address] [place], [address] Hemoglobin A1c percentageOrd ered By: Abraham Coker on 08-01-2025 HbA1c (Bld) [Mass fraction] 5.9 % High <5.7 [facility] Comment on above: Normal < 5.7 % Predi abetic 5.7 - 6.4 % Diabetic >or= 6.5 % Please note range changes. Hemoglobin measurementOrdere d By: Abraham Coker on 08-01-2025 Hemoglobin (Bld) [Mass/Vol] 15.1 g/dL 13.0-16. 5 [facility] Immature granulocytes/100 WB C Auto (Bld)Ordered By: Abraham Coker on 08-01-2025 Immature granulocytes/100 WBC (Bld) 0.900 % 0.0-0.9 [facility] Comment on above: IG% - Immature Granu locytes (promyelocytes, myelocytes and metamyelocytes) > 1% indicates that a LEFT SHIFT is Present. Ketones Test strip Ql (U)Ord ered By: Abraham Coker on 08-01-2025 Ketones Ql (U) Negative Negative [facility] LDL calc ser/plasOrdered By: Abraham Coker on 08-01-2025 Cholesterol in LDL [Mass/Vol] 57 mg/dL [facility] Comment on above: Fagjybckbj=441-183 m g/dL & Higher Zabk=361 mg/dL or greaterFriedwald Equation for LDL-C Laboratory - Chemistry and C hemistry - challengeOrdered By: Abraham Coker on 08-01-2025 AST [Catalytic activity/Vol] 23 U/L <38 [facility] Lipid Profileon 08-01-2025 CHOL:HDL 2.87 Normal [facility] Comment on above: Order Comment: Order Date: 11/29/24 Order Info: 4548-4 - A1C Performed By: #### L 501.9985, L502.0250, L500.4050, L100.0100, L500.4100, L501.5200 #### [facility] [address] [place], [place], [id number] Cholesterol [Mass/Vol] 111 mg/dL Normal <=200 [facility] Comment on above: Order Comment: Order Date: 11/29/24 Order Info: 4548-4 - A1C Result Comment: Chol esterol level, Desirable <200 mg/dL Borderline high cholesterol 200-239 mg/dL High cholesterol >=240 mg/dL Recommendations of the NCEP Adult Treatment Panel for the following risk-cutoff thresholds for the [place] population. Performed By: #### L 501.9985, L502.0250, L500.4050, L100.0100, L500.4100, L501.5200 #### [facility] [address] [place], [address] Cholesterol in HDL [Mass/Vol] 39 mg/dL Low [facility] Comment on above: Order Comment: Order Date: 11/29/24 Order Info: 4548-4 - A1C Result Comment: [place]ale onal Cholesterol Education Program (NCEP) guidelines: <40 mg/dL: Low HDL-cholesterol (major risk factor for CHD) >= 60 mg/dL: High HDL-cholesterol (negative risk factor for CHD) HDL-cholesterol is affected by a number of factors, e.g. smoking, exercise, hormones, sex and age. Performed By: #### L 501.9985, L502.0250, L500.4050, L100.0100, L500.4100, L501.5200 #### [facility] [address] [place], [address] Cholesterol in LDL [Mass/Vol] 57 mg/dL Normal [facility] Comment on above: Order Comment: Order Date: 11/29/24 Order Info: [id number] - A1C Result Comment: Bord pmuwme=714-569 mg/dL Higher Jcmm=764 mg/dL or greater Friedwald Equation for LDL-C Performed By: #### L 501.9985, L502.0250, L500.4050, L100.0100, L500.4100, L501.5200 #### [facility] [address] [place], [address] Cholesterol in VLDL [Mass/Vol] 16 mg/dL Normal 5-40 [facility] Comment on above: Order Comment: Order Date: 11/29/24 Order Info: [id number] - A1C Performed By: #### L 501.9985, L502.0250, L500.4050, L100.0100, L500.4100, L501.5200 #### [facility] [address] [place], [address] Triglyceride [Mass/Vol] 78 mg/dL Normal [facility] Comment on above: Order Comment: Order Date: 11/29/24 Order Info: [id number] - A1C Result Comment: The drugs N-Acetylcysteine and Metamizole may falsely depress this assay. Normal range: <150 mg/dL Borderline High: 150-199 mg/dL High: 200-499 mg/dL Very High: >500 mg/dL Performed By: #### L 501.9985, L502.0250, L500.4050, L100.0100, L500.4100, L501.5200 #### [facility] [address] [place], [place], [address] MCV (mean corpuscular volume ) determinationOrdered By: Abraham Coker on 08-01-2025 MCV (RBC) [Entitic vol] 85.0 fL 80-94 [facility] Magnesiumon 08-01-2025 Magnesium [Mass/Vol] 2.3 mg/dL High 1.5-2.2 [facility] Comment on above: Order Comment: Order Date: 11/29/24 Order Info: [id number] - A1C Performed By: #### L 501.9985, L502.0250, L500.4050, L100.0100, L500.4100, L501.5200 #### [facility] [address] [place], [place], [address] Magnesium measurement (mass/ volume)Ordered By: Abraham Coker on 08-01-2025 Magnesium (Unsp spec) [Mass/Vol] 2.3 mg/dL High 1.5-2.2 [facility] Mean corpuscular hemoglobin (MCH) determinationOrdered By: Abraham Coker on 08-01-2025 MCH (RBC) [Entitic mass] 28.8 pg 27.0-32.0 [facility] Mean corpuscular hemoglobin concentration (MCHC) determinationOrdered By: Abraham Coker on 08-01-2025 MCHC (RBC) [Mass/Vol] 33.9 g/dL 32-36 [facility] Mean platelet volume determi nationOrdered By: Abraham Coker on 08-01-2025 Platelet mean volume (Bld) [Entitic vol] 10.2 fL 6.2-12.0 [facility] Microalb:Creat Ratio,Random URon 08-01-2025 Creatinine [Mass/Vol] 269.00 mg/dL High 39.00-259.00 [facility] Comment on above: Order Comment: Order Date: 08/01/25 Order Info: [id number] - MIALB Performed By: #### L 400.0001, L502.0250 #### [facility] [address] [place], [address] MALB:CREAT UNABLE TO CALCULATE Normal <30 mg/g CRE [facility] Comment on above: Order Comment: Order Date: 08/01/25 Order Info: [id number] - MIALB Performed By: #### L 400.0001, L502.0250 #### [facility] [address] [place], [address] MICROALBUMIN,UR < 12.0 Normal <20 mg/L [facility] Comment on above: Order Comment: Order Date: 08/01/25 Order Info: [id number] - MIALB Performed By: #### L 400.0001, L502.0250 #### [facility] [address] [place], [address] Microalbumin/creat ratio urO rdered By: Abraham Coker on 08-01-2025 Urine microalbumin/creatinine ratio measurement UNABLE TO CALCULATE mg/g CRE <30 [facility] Microscopic analysis of urin e for red blood cells (RBC)Ordered By: Abraham Coker on 08-01-2025 Microscopic analysis of urine for red blood cells (RBC) 0-5 SEEN /hpf 0-5 [facility] Monocyte percentageOrdered B y: Abraham Coker on 08-01-2025 Monocytes/100 WBC (Bld) 11.2 % High 0-10 [facility] Mucus LM Ql (Urine sed)Order ed By: Abraham Coker on 08-01-2025 Mucus Ql (Urine sed) 1+ /hpf [facility] Neutrophil percentageOrdered By: Abraham Coker on 08-01-2025 Neutrophils/100 WBC (Bld) 63.6 % 47-70 [facility] Nitrite Test strip Ql (U)Ord ered By: Abraham Coker on 08-01-2025 Nitrite Ql (U) Negative Negative [facility] Nucleated red blood cell per centageOrdered By: Abraham Coker on 08-01-2025 Nucleated RBC/100 WBC (Bld) [Ratio] 0 % 0-5 [facility] Platelet countOrdered By: Rachana Coker on 08-01-2025 Platelets (Bld) [#/Vol] 201 10*3/uL 150-450 [facility] Potassium measurement (mass/ volume)Ordered By: Abraham Coker on 08-01-2025 Potassium (Unsp spec) [Mass/Vol] 3.7 mmol/L 3.3-5.1 [facility] Protein Test strip Ql (U)Ord ered By: Abraham Coker on 08-01-2025 Protein Ql (U) 30 mg/dl High Negative [facility] RBC Auto (Bld) [#/Vol]Ordere d By: Abraham Coker on 08-01-2025 RBC (Bld) [#/Vol] 5.25 10*6/uL 4.6-6.2 [facility] Random urine creatinine nicky urement (mass/volume)Ordered By: Abraham Coker on 08-01-2025 Creatinine Unsp time (U) [Mass/Vol] 269.00 mg/dL High 39.00-259.00 [facility] Screening total cholesterol/ high density lipoprotein (HDL) cholesterol ratioOrdered By: Abraham Coker on 08-01-2025 Cholesterol.total/Cholester ol in HDL [Mass ratio] 2.87 {ratio} [facility] Serum creatinine measurement (mass/volume)Ordered By: Abraham Coker on 08-01-2025 Creatinine [Mass/Vol] 0.97 mg/dL 0.70-1.20 [facility] Serum globulin measurementOr dered By: Abraham Coker on 08-01-2025 Globulin (S) [Mass/Vol] 2.7 g/dL 2.2-4.2 [facility] Serum glucose measurement (m ass/volume)Ordered By: Abraham Coker on 08-01-2025 Glucose [Mass/Vol] 139 mg/dL High 70-99 [facility] Serum or plasma alanine carroll otransferase (ALT) measurementOrdered By: Abraham Coker on 08-01-2025 ALT [Catalytic activity/Vol] 38 U/L <47 [facility] Serum or plasma albumin nicky urement (mass/volume)Ordered By: Abraham Coker on 08-01-2025 Albumin [Mass/Vol] 4.2 g/dL 3.5-5.0 [facility] Serum or plasma albumin/glob ulin mass ratioOrdered By: Abraham Coker on 08-01-2025 Albumin/Globulin [Mass ratio] 1.5 {ratio} 0.9-2.4 [facility] Serum or plasma alkaline marily sphatase measurementOrdered By: Abraham Coker on 08-01-2025 ALP [Catalytic activity/Vol] 71 U/L 40-129 [facility] Serum or plasma calcium nicky urement (mass/volume)Ordered By: Abraham Coker on 08-01-2025 Calcium [Mass/Vol] 8.8 mg/dL 7.6-11.0 [facility] Serum or plasma cholesterol in HDL measurement (mass/volume)Ordered By: Abraham Coker on 08-01-2025 Cholesterol in HDL [Mass/Vol] 39 mg/dL Low >40 [facility] Comment on above: National Cholesterol Education Program (NCEP) guidelines:<40 mg/dL: Low HDL-cholesterol (major risk factor for CHD)>= 60 mg/dL: High HDL-cholesterol (negative risk factor for CHD)HDL-cholesterol is affected by a number of factors, e.g. smoking, exercise, hormones, sex and age. Serum or plasma cholesterol measurement (mass/volume)Ordered By: Abraham Coker on 08-01-2025 Cholesterol [Mass/Vol] 111 mg/dL <201 [facility] Comment on above: Cholesterol level, D esirable <200 mg/dLBorderline high cholesterol 200-239 mg/dLHigh cholesterol >=240 mg/dLRecommendations of the NCEP Adult Treatment Panel for the following risk-cutoff thresholds for the [place] population. Serum or plasma urea nitroge n measurement (mass/volume)Ordered By: Abraham Coker on 08-01-2025 Urea nitrogen [Mass/Vol] 16 mg/dL 4-19 [facility] Sodium levelOrdered By: Abraham Coker on 08-01-2025 Sodium [Moles/Vol] 141 mmol/L 133-145 [facility] Squamous epithelial cells de tection in urine sediment by light microscopyOrdered By: Abraham Coker on 08-01-2025 Epithelial cells.squamous LM Ql (Urine sed) 0 SEEN /hpf 0-5 [facility] Total proteinOrdered By: Kirk Coker on 08-01-2025 Protein [Mass/Vol] 6.9 g/dL 5.9-8.4 [facility] Triglycerides measurementOrd ered By: Abraham Coker on 08-01-2025 Triglyceride [Mass/Vol] 78 mg/dL <199 [facility] Comment on above: The drugs N-Acetylcy steine and Metamizole may falsely depress this assay. Normal range: <150 mg/dLBorderline High: 150-199 mg/dLHigh: 200-499 mg/dLVery High: >500 mg/dL Urinalysis, Completeon 08-01 Mucus Ql (Urine sed) 1+ /hpf Normal [facility] Comment on above: Order Comment: CLEAN CATCH Performed By: #### L 400.0001, L502.0250 #### [facility] [address] [place], [address] RBC 0-5 SEEN Normal 0-5 [facility] Comment on above: Order Comment: CLEAN CATCH Performed By: #### L 400.0001, L502.0250 #### [facility] [address] [place], [address] WBC 0-5 SEEN Normal 0-5 [facility] Comment on above: Order Comment: CLEAN CATCH Performed By: #### L 400.0001, L502.0250 #### [facility] [address] [place], [address] BACTERIA 0 SEEN Normal None Seen [facility] Comment on above: Order Comment: CLEAN CATCH Performed By: #### L 400.0001, L502.0250 #### [facility] [address] [place], [address] EPI,SQUAMOUS 0 SEEN Normal 0-5 [facility] Comment on above: Order Comment: CLEAN CATCH Performed By: #### L 400.0001, L502.0250 #### [facility] [address] [place], [address] Urine albumin measurement wi detection limit of 20 mg/L or less (mass/volume)Ordered By: Abraham Coker on 08-01-2025 Albumin DL <= 20 mg/L (U) [Mass/Vol] < 12.0 mg/L <20 mg/L [facility] Urine clarityOrdered By: Kirk Coker on 08-01-2025 Clarity (U) Clear Clear [facility] Urine color determinationOrd ered By: Abraham Coker on 08-01-2025 Color (U) Yellow Yellow [facility] Urine glucose detectionOrder ed By: Abraham Coker on 08-01-2025 Glucose Ql (U) Normal mg/dl Normal [facility] Urine leukocyte esterase det ection by dipstickOrdered By: Abraham Coker on 08-01-2025 Leukocyte esterase Test strip Ql (U) Negative Negative [facility] Urine pHOrdered By: Abraham mclean on 08-01-2025 pH (U) 5.0 [pH] 5.0 - 8.0 [facility] Urine sediment bacteria coun t by microscopy (number/high power field)Ordered By: Abraham Coker on 08-01-2025 Bacteria LM.HPF (Urine sed) [#/Area] 0 /[HPF] None Seen [facility] Urine specific gravity measu rementOrdered By: Abraham Coker on 08-01-2025 Specific gravity (U) [Rel density] 1.025 1.002-1.030 [facility] Urine urobilinogen measureme ntOrdered By: Abraham Coker on 08-01-2025 Urobilinogen Ql (U) 1 mg/dl High Normal [facility] White blood cell (WBC) count Ordered By: Abraham Coker on 08-01-2025 WBC (Bld) [#/Vol] 4.5 10*3/uL 4.4-11.0 [facility] White blood cell countOrdere d By: Abraham Coker on 08-01-2025 White blood cell count 0-5 SEEN /hpf 0-5 [facility] Foot min 3 Viewson Foot min 3 Views [facility] Imaging Services [address] [place], [place] [id number] Foot min 3 Views MR#: [id number] Acct: [id number] Name: INDIGO MARTINEZ Rep #: [id number] : 1970 M 54 From: Abelardo Castro MD PCP: Dr. Abraham Coker MD Status: REG CLI Study: Foot min 3 Views Date of Exam: 07/01/25 Exam# [id number] Ordering Dr: Tito Hutchison NP, NP -Brooks PROCEDURE: FOOT MIN 3 VIEWS 07/01/2025 REASON FOR EXAM: PAIN, REDNESS TECHNIQUE: FOOT MIN 3 VIEWS Laterality: Right COMPARISON: No FINDINGS: Old 5th metatarsal fracture. Mild 1st MTP joint osteoarthritis. Posterior and plantar calcaneal spurs. No acute bone or soft tissue pathology. RAD/Foot min 3 Views IMPRESSION: No acute findings Reading Location: [place] [address] CC: Tito LÓPEZ NP-Brooks Hutchison; Dr. Abraham Coker MD Quality Assurance Monitor Final: Signed Normal [facility] Hemoglobin A1con 03-10-2025 HbA1c (Bld) [Mass fraction] 6.4 % High <=5.6 [facility] Comment on above: Result Comment: Norm al < 5.7 % Prediabetic 5.7 - 6.4 % Diabetic >or= 6.5 % Please note range changes. Performed By: #### L 501.9985 #### [facility] [address] [place], [place], [address] Hemoglobin A1c percentageOrd ered By: Abraham Coker on 03-10-2025 HbA1c (Bld) [Mass fraction] 6.4 % High <5.7 [facility] Comment on above: Normal < 5.7 % Predi abetic 5.7 - 6.4 % Diabetic >or= 6.5 % Please note range changes. Cardiology Visit Reporton Cardiology Visit Report [facility] [address] [place] [address] OFFICE VISIT Date of Service: 02/25/25 MR#: [id number] Acct: [id number] Name: INDIGO MARTINEZ Rep #: [id number] : 1970 Provider: DADA styles Age/Sex: 54/M Location: [facility] Status: Signed HPI HPI History of Present [...] of his otherwise unexplained stroke back in [place]. He has no significant residual from his stroke. The patient does have a history of diabetes on metformin hemoglobin A1c runs between 5.5 and 6.5 he also has a history of hypertension which is well-controlled on his current medical therapy. The patient's [id number] score is 4 which gives him a [...] 95 Intake Visit Reasons: 6 M [employer] Required: No Is patient in pain?: No Allergies No Known Allergies Allergy (Verified 02/25/25 08:40) Medications ???Medication ???Instructions ???Recorded ???Confirmed ???Type atorvastatin 40 mg tablet 40 mg PO DAILY CHOLESTEROL 1 02/25/25 History losartan 50 mg-hydrochlorothiaz rianna 1 tab PO DAILY blood pressure 02/25/25 History 12.5 mg tablet apixaban 5 mg tablet (Eliquis) 5 mg PO BID blood thinner #180 tab s 02/25/25 02/25/25 Rx tirzepatide 5 mg/0.5 mL 5 mg subcut QWEEK 02/25/25 5 History subcutaneous pen injector (Mounnoelro) Have you fallen in the past year?: [...] Auscultation Cardio (more content not included)... Normal [facility] Absolute neutrophil countOrd ered By: Abraham Coker on 11-29-2024 Neutrophils (Bld) [#/Vol] 3.9 10*3/uL 2.0-7.7 [facility] Albumin to globulin ratioOrd ered By: Abraham Coker on 11-29-2024 Albumin/Globulin [Mass ratio] 1.2 {ratio} 0.9-2.4 [facility] Basophil percentageOrdered B y: Abraham Coker on 11-29-2024 Basophils/100 WBC (Bld) 0.9 % 0-1 [facility] Bilirubin, totalOrdered By: Abraham Coker on 11-29-2024 Bilirubin [Mass/Vol] 0.80 mg/dL 0.20-1.00 [facility] Comment on above: For patients on eltr ombopag therapy, use of Dimension [place] TBIL is not recommended. Blood urea nitrogen (BUN)/cr eatinine ratioOrdered By: Abraham Coker on 11-29-2024 Urea nitrogen/Creatinine [Mass ratio] 19.4 mg/mg 10- [facility] CBC W/Diff, Automatedon 11-20 Absolute Lymph 1.97 X10 3/uL Normal 0.83-4.51 [facility] Comment on above: Order Comment: Order Date: 11/29/24 Order Info: [id number] - CBCD Performed By: #### L 501.9967, L502.0250, L500.4050, L100.0100, L500.4100, L501.5200 #### [facility] [address] [place], [place], [id number] Absolute Neut 3.9 X10 3/uL Normal 2.0-7.7 [facility] Comment on above: Order Comment: Order Date: 11/29/24 Order Info: [id number] - CBCD Performed By: #### L 501.9985, L502.0250, L500.4050, L100.0100, L500.4100, L501.5200 #### [facility] [address] [place], [address] Basophils/100 WBC (Bld) 0.9 % Normal 0-1 [facility] Comment on above: Order Comment: Order Date: 11/29/24 Order Info: [id number] - CBCD Performed By: #### L 501.9985, L502.0250, L500.4050, L100.0100, L500.4100, L501.5200 #### [facility] [address] [place], [place], [id number] Eosinophils/100 WBC (Bld) 2.1 % Normal 0-5 [facility] Comment on above: Order Comment: Order Date: 11/29/24 Order Info: [id number] - CBCD Performed By: #### L 501.9985, L502.0250, L500.4050, L100.0100, L500.4100, L501.5200 #### [facility] [address] [place], [place], [id number] Erythrocyte distribution width (RBC) [Ratio] 13.0 % Normal 11.6-14.6 [facility] Comment on above: Order Comment: Order Date: 11/29/24 Order Info: [id number] - CBCD Performed By: #### L 501.9985, L502.0250, L500.4050, L100.0100, L500.4100, L501.5200 #### [facility] [address] [place], [address] Hematocrit (Bld) [Volume fraction] 48.6 % Normal 40-54 [facility] Comment on above: Order Comment: Order Date: 11/29/24 Order Info: [id number] - CBCD Performed By: #### L 501.9985, L502.0250, L500.4050, L100.0100, L500.4100, L501.5200 #### [facility] [address] [place], [address] Hemoglobin (Bld) [Mass/Vol] 16.3 g/dL Normal 13.0-16. 5 [facility] Comment on above: Order Comment: Order Date: 11/29/24 Order Info: [id number] - CBCD Performed By: #### L 501.9985, L502.0250, L500.4050, L100.0100, L500.4100, L501.5200 #### [facility] [address] [place], [address] IG% 0.800 Normal 0.0-0.9 [facility] Comment on above: Order Comment: Order Date: 11/29/24 Order Info: [id number] - CBCD Result Comment: IG% - Immature Granulocytes (promyelocytes, myelocytes and metamyelocytes) > 1% indicates that a LEFT SHIFT is Present. Performed By: #### L 501.9985, L502.0250, L500.4050, L100.0100, L500.4100, L501.5200 #### [facility] [address] [place], [address] Lymphocytes/100 WBC (Bld) 29.7 % Normal 19-41 [facility] Comment on above: Order Comment: Order Date: 11/29/24 Order Info: [id number] - CBCD Performed By: #### L 501.9985, L502.0250, L500.4050, L100.0100, L500.4100, L501.5200 #### [facility] [address] [place], [address] MCH (RBC) [Entitic mass] 29.1 pg Normal 27.0-32.0 [facility] Comment on above: Order Comment: Order Date: 11/29/24 Order Info: [id number] - CBCD Performed By: #### L 501.9985, L502.0250, L500.4050, L100.0100, L500.4100, L501.5200 #### [facility] [address] [place], [address] MCHC (RBC) [Mass/Vol] 33.5 g/dL Normal 32-36 [facility] Comment on above: Order Comment: Order Date: 11/29/24 Order Info: [id number] - CBCD Performed By: #### L 501.9985, L502.0250, L500.4050, L100.0100, L500.4100, L501.5200 #### [facility] [address] [place], [address] MCV (RBC) [Entitic vol] 86.6 fL Normal 80-94 [facility] Comment on above: Order Comment: Order Date: 11/29/24 Order Info: [id number] - CBCD Performed By: #### L 501.9985, L502.0250, L500.4050, L100.0100, L500.4100, L501.5200 #### [facility] [address] [place], [address] Monocytes/100 WBC (Bld) 8.4 % Normal 0-10 [facility] Comment on above: Order Comment: Order Date: 11/29/24 Order Info: [id number] - CBCD Performed By: #### L 501.9985, L502.0250, L500.4050, L100.0100, L500.4100, L501.5200 #### [facility] [address] [place], [address] Neutrophils/100 WBC (Bld) 58.1 % Normal 47-70 [facility] Comment on above: Order Comment: Order Date: 11/29/24 Order Info: [id number] - CBCD Performed By: #### L 501.9985, L502.0250, L500.4050, L100.0100, L500.4100, L501.5200 #### [facility] [address] [place], [address] Nucleated RBC (Bld) [#/Vol] 0 10*3/uL Normal 0-5 [facility] Comment on above: Order Comment: Order Date: 11/29/24 Order Info: [id number] - CBCD Performed By: #### L 501.9985, L502.0250, L500.4050, L100.0100, L500.4100, L501.5200 #### [facility] [address] [place], [address] Platelet mean volume (Bld) [Entitic vol] 10.9 fL Normal 6.2-12.0 [facility] Comment on above: Order Comment: Order Date: 11/29/24 Order Info: [id number] - CBCD Performed By: #### L 501.9985, L502.0250, L500.4050, L100.0100, L500.4100, L501.5200 #### [facility] [address] [place], [address] Platelets (Bld) [#/Vol] 262 10*3/uL Normal 150-450 [facility] Comment on above: Order Comment: Order Date: 11/29/24 Order Info: [id number] - CBCD Performed By: #### L 501.9985, L502.0250, L500.4050, L100.0100, L500.4100, L501.5200 #### [facility] [address] [place], [address] RBC (Bld) [#/Vol] 5.61 10*6/uL Normal 4.6-6.2 [facility] Comment on above: Order Comment: Order Date: 11/29/24 Order Info: [id number] - CBCD Performed By: #### L 501.9985, L502.0250, L500.4050, L100.0100, L500.4100, L501.5200 #### [facility] [address] [place], [address] RDW SD 40.2 fl Normal 35.1-43.9 [facility] Comment on above: Order Comment: Order Date: 11/29/24 Order Info: [id number] - CBCD Performed By: #### L 501.9985, L502.0250, L500.4050, L100.0100, L500.4100, L501.5200 #### [facility] [address] [place], [address] WBC (Bld) [#/Vol] 6.6 10*3/uL Normal 4.4-11.0 [facility] Comment on above: Order Comment: Order Date: 11/29/24 Order Info: [id number] - CBCD Performed By: #### L 501.9985, L502.0250, L500.4050, L100.0100, L500.4100, L501.5200 #### [facility] [address] [place], [place], [id number] Carbon dioxide measurementOr dered By: Abraham Coker on 11-29-2024 CO2 [Moles/Vol] 27.0 mmol/L 21.0-32.0 [facility] Chloride measurementOrdered By: Abraham Coker on 11-29-2024 Chloride [Moles/Vol] 106 mmol/L 98-107 [facility] Comprehensive Metabolic Prof ilon 11-29-2024 Albumin [Mass/Vol] 4.1 g/dL Normal 3.2-5.0 [facility] Comment on above: Order Comment: Order Date: 11/29/24 Order Info: [id number] - CMP Order Info: [id number] - LIPID Order Info: [id number] - MG Performed By: #### L 501.9985, L502.0250, L500.4050, L100.0100, L500.4100, L501.5200 #### [facility] [address] [place], [address] Albumin/Globulin [Mass ratio] 1.2 {ratio} Normal 0.9-2.4 [facility] Comment on above: Order Comment: Order Date: 11/29/24 Order Info: [id number] - CMP Order Info: [id number] - LIPID Order Info: [id number] - MG Performed By: #### L 501.9985, L502.0250, L500.4050, L100.0100, L500.4100, L501.5200 #### [facility] [address] [place], [address] ALK P 87 U/L Normal 45-117 [facility] Comment on above: Order Comment: Order Date: 11/29/24 Order Info: [id number] - CMP Order Info: [id number] - LIPID Order Info: [id number] - MG Performed By: #### L 501.9985, L502.0250, L500.4050, L100.0100, L500.4100, L501.5200 #### [facility] [address] [place], [address] ALT [Catalytic activity/Vol] 76 U/L High 16-61 [facility] Comment on above: Order Comment: Order Date: 11/29/24 Order Info: [id number] - CMP Order Info: [id number] - LIPID Order Info: [id number] - MG Performed By: #### L 501.9985, L502.0250, L500.4050, L100.0100, L500.4100, L501.5200 #### [facility] [address] [place], [address] AST [Catalytic activity/Vol] 27 U/L Normal 15-37 [facility] [facility] Comment on above: Order Comment: Order Date: 11/29/24 Order Info: [id number] - CMP Order Info: [id number] - LIPID Order Info: [id number] - MG Result Comment: Slig ht Hemolysis, Result may be falsely increased. Performed By: #### L 501.9985, L502.0250, L500.4050, L100.0100, L500.4100, L501.5200 #### [facility] [address] [place], [address] Bilirubin [Mass/Vol] 0.80 mg/dL Normal 0.20-1.00 [facility] Comment on above: Order Comment: Order Date: 11/29/24 Order Info: [id number] - CMP Order Info: [id number] - LIPID Order Info: [id number] - MG Result Comment: For patients on eltrombopag therapy, use of Dimension [place] TBIL is not recommended. Performed By: #### L 501.9985, L502.0250, L500.4050, L100.0100, L500.4100, L501.5200 #### [facility] [address] [place], [address] BUN/CRE 19.4 RATIO Normal 10-20 [facility] Comment on above: Order Comment: Order Date: 11/29/24 Order Info: [id number] - CMP Order Info: [id number] - LIPID Order Info: [id number] - MG Performed By: #### L 501.9985, L502.0250, L500.4050, L100.0100, L500.4100, L501.5200 #### [facility] [address] [place], [address] CA,Total 9.0 mg/dL Normal 8.5-10.1 [facility] Comment on above: Order Comment: Order Date: 11/29/24 Order Info: [id number] - CMP Order Info: [id number] - LIPID Order Info: [id number] - MG Performed By: #### L 501.9985, L502.0250, L500.4050, L100.0100, L500.4100, L501.5200 #### [facility] [address] [place], [address] Chloride [Moles/Vol] 106 mmol/L Normal 98-107 [facility] Comment on above: Order Comment: Order Date: 11/29/24 Order Info: [id number] - CMP Order Info: [id number] - LIPID Order Info: [id number] - MG Performed By: #### L 501.9985, L502.0250, L500.4050, L100.0100, L500.4100, L501.5200 #### [facility] [address] [place], [address] CO2 [Moles/Vol] 27.0 mmol/L Normal 21.0-32.0 [facility] Comment on above: Order Comment: Order Date: 11/29/24 Order Info: [id number] - CMP Order Info: [id number] - LIPID Order Info: [id number] - MG Performed By: #### L 501.9985, L502.0250, L500.4050, L100.0100, L500.4100, L501.5200 #### [facility] [address] [place], [address] Creatinine [Mass/Vol] 1.03 mg/dL Normal 0.70-1.30 [facility] Comment on above: Order Comment: Order Date: 11/29/24 Order Info: [id number] - CMP Order Info: [id number] - LIPID Order Info: [id number] - MG Result Comment: The validity of the calculated GFR GFRAA in patients over 70 years has not been determined. Clinical correlation is essential. Performed By: #### L 501.9985, L502.0250, L500.4050, L100.0100, L500.4100, L501.5200 #### [facility] [address] [place], [address] EST GFR - AA 97 mL/min Normal >60 [facility] Comment on above: Order Comment: Order Date: 11/29/24 Order Info: [id number] - CMP Order Info: [id number] - LIPID Order Info: [id number] - MG Result Comment: Afri can Cypriot GFR Calc Performed By: #### L 501.9985, L502.0250, L500.4050, L100.0100, L500.4100, L501.5200 #### [facility] [address] [place], [address] GAP 4 Low 5-15 [facility] Comment on above: Order Comment: Order Date: 11/29/24 Order Info: [id number] - CMP Order Info: [id number] - LIPID Order Info: [id number] - MG Performed By: #### L 501.9985, L502.0250, L500.4050, L100.0100, L500.4100, L501.5200 #### [facility] [address] [place], [address] GFR/1.73 sq M.predicted among non-blacks MDRD (S/P/Bld) [Vol rate/Area] 80 mL/min/{1.73_m2} Normal >60 [facility] Comment on above: Order Comment: Order Date: 11/29/24 Order Info: [id number] - CMP Order Info: [id number] - LIPID Order Info: [id number] - MG Result Comment: Non- GFR Calc Performed By: #### L 501.9985, L502.0250, L500.4050, L100.0100, L500.4100, L501.5200 #### [facility] [address] [place], [address] Globulin (S) [Mass/Vol] 3.3 g/dL Normal 2.2-4.2 [facility] Comment on above: Order Comment: Order Date: 11/29/24 Order Info: [id number] - CMP Order Info: [id number] - LIPID Order Info: [id number] - MG Performed By: #### L 501.9985, L502.0250, L500.4050, L100.0100, L500.4100, L501.5200 #### [facility] [address] [place], [address] Glucose [Mass/Vol] 147 mg/dL High 74-106 [facility] Comment on above: Order Comment: Order Date: 11/29/24 Order Info: [id number]- - CMP Order Info: [id number] - LIPID Order Info: [id number] - MG Result Comment: Fast ing Glucose result greater than or equal to 126 mg/dL suggests DIABETES MELLITUS per A.D.A. criteria. Performed By: #### L 501.9985, L502.0250, L500.4050, L100.0100, L500.4100, L501.5200 #### [facility] [address] [place], [address] Potassium [Moles/Vol] 4.1 mmol/L Normal 3.5-5.1 [facility] Comment on above: Order Comment: Order Date: 11/29/24 Order Info: [id number] - CMP Order Info: [id number] - LIPID Order Info: [id number] - MG Result Comment: Slig ht Hemolysis, Result may be falsely increased. Performed By: #### L 501.9985, L502.0250, L500.4050, L100.0100, L500.4100, L501.5200 #### [facility] [address] [place], [address] Sodium [Moles/Vol] 138 mmol/L Normal 136-145 [facility] Comment on above: Order Comment: Order Date: 11/29/24 Order Info: [id number] - CMP Order Info: [id number] - LIPID Order Info: [id number] - MG Performed By: #### L 501.9985, L502.0250, L500.4050, L100.0100, L500.4100, L501.5200 #### [facility] [address] [place], [address] T PROT 7.4 g/dL Normal 6.4-8.2 [facility] Comment on above: Order Comment: Order Date: 11/29/24 Order Info: [id number] - CMP Order Info: [id number] - LIPID Order Info: [id number] - MG Performed By: #### L 501.9985, L502.0250, L500.4050, L100.0100, L500.4100, L501.5200 #### [facility] [address] [place], [address] Urea nitrogen [Mass/Vol] 20 mg/dL High 7-18 [facility] Comment on above: Order Comment: Order Date: 11/29/24 Order Info: [id number] - CMP Order Info: [id number] - LIPID Order Info: [id number] - MG Performed By: #### L 501.9985, L502.0250, L500.4050, L100.0100, L500.4100, L501.5200 #### [facility] [address] [place], [address] Eosinophil percentageOrdered By: Abraham Coker on 11-29-2024 Eosinophils/100 WBC (Bld) 2.1 % 0-5 [facility] Erythrocyte distribution wid th (RBC) [Ratio]Ordered By: Abraham Coker on 11-29-2024 Erythrocyte distribution width (RBC) [Entitic vol] 40.2 fL 35.1-43.9 [facility] Erythrocyte distribution wid th ratioOrdered By: Abraham Coker on 11-29-2024 Erythrocyte distribution width (RBC) [Ratio] 13.0 % 11.6-14.6 [facility] Estimated glomerular filtrat ion rate (GFR) AmericanOrdered By: Abraham Coker on 11-29-2024 Estimated GFR (MDRD) Amer 97 mL/min >60 [facility] Comment on above: GFR Calc Glomerular filtration rate ( GFR) estimationOrdered By: Abraham Coker on 11-29-2024 Estimated GFR (MDRD) Non-Af Amer 80 mL/min >60 [facility] Comment on above: Non- GFR Calc Glucose measurementOrdered B y: Abraham Coker on 11-29-2024 Glucose [Mass/Vol] 147 mg/dL High 74-106 [facility] Comment on above: Fasting Glucose resu lt greater than or equal to 126 mg/dL suggests DIABETES MELLITUS per A.D.A. criteria. Hematocrit Auto (Bld) [Volum e fraction]Ordered By: Abraham Coker on 11-29-2024 Hematocrit (Bld) [Volume fraction] 48.6 % 40-54 [facility] Hemoglobin A1con 11-29-2024 HbA1c (Bld) [Mass fraction] 7.8 % High 3.8-5.6 [facility] Comment on above: Order Comment: Order Date: 11/29/24 Order Info: [id number] - A1C Result Comment: Norm al < 5.7 % Prediabetic 5.7 - 6.4 % Diabetic >or= 6.5 % Please note range changes. Performed By: #### L 501.9985, L502.0250, L500.4050, L100.0100, L500.4100, L501.5200 #### [facility] [address] [place] [address]. [place], [address] Hemoglobin A1c percentageOrd ered By: Abraham Coker on 11-29-2024 HbA1c (Bld) [Mass fraction] 7.8 % High 3.8-5.6 [facility] Comment on above: Normal < 5.7 % Predi abetic 5.7 - 6.4 % Diabetic >or= 6.5 % Please note range changes. Hemoglobin measurementOrdere d By: Abraham Coker on 11-29-2024 Hemoglobin (Bld) [Mass/Vol] 16.3 g/dL 13.0-16. 5 [facility] High density lipoprotein (HD L) measurementOrdered By: Abraham Coker on 11-29-2024 Cholesterol in HDL [Mass/Vol] 39 mg/dL Low >40 [facility] Comment on above: The drugs N-Acetylcy steine and Metamizole may falsely depress this assay. Reference Range HDL <40 mg/dL Low HDL Cholesterol HDL >or= 60 mg/dL High HDL Cholesterol Immature granulocytes/100 WB C Auto (Bld)Ordered By: Abraham Coker on 11-29-2024 Immature granulocytes/100 WBC (Bld) 0.800 % 0.0-0.9 [facility] Comment on above: IG% - Immature Granu locytes (promyelocytes, myelocytes and metamyelocytes) > 1% indicates that a LEFT SHIFT is Present. Laboratory - Chemistry and C hemistry - challengeOrdered By: Abraham Coker on 11-29-2024 AST [Catalytic activity/Vol] 27 U/L 15-37 [facility] Comment on above: Slight Hemolysis, Re sult may be falsely increased. Lipid Profileon 11-29-2024 Cholesterol [Mass/Vol] 150 mg/dL Normal 200 [facility] Comment on above: Order Comment: Order Date: 11/29/24 Order Info: [id number] - CMP Order Info: [id number] - LIPID Order Info: [id number] - MG Result Comment: <200 mg/dL Desirable 200-240 mg/dL Borderline >240 mg/dL High Risk Performed By: #### L 501.9985, L502.0250, L500.4050, L100.0100, L500.4100, L501.5200 #### [facility] [address] [place], [place], [id number] Cholesterol in HDL [Mass/Vol] 39 mg/dL Low [facility] Comment on above: Order Comment: Order Date: 11/29/24 Order Info: [id number] - CMP Order Info: [id number] - LIPID Order Info: [id number] - MG Result Comment: The drugs N-Acetylcysteine and Metamizole may falsely depress this assay. Reference Range HDL <40 mg/dL Low HDL Cholesterol HDL >or= 60 mg/dL High HDL Cholesterol Performed By: #### L 501.9985, L502.0250, L500.4050, L100.0100, L500.4100, L501.5200 #### [facility] [address] [place], [address] Cholesterol in LDL [Mass/Vol] 59 mg/dL Normal 0-130 [facility] Comment on above: Order Comment: Order Date: 11/29/24 Order Info: [id number] - CMP Order Info: [id number] - LIPID Order Info: [id number] - MG Performed By: #### L 501.9985, L502.0250, L500.4050, L100.0100, L500.4100, L501.5200 #### [facility] [address] [place], [address] Cholesterol in VLDL [Mass/Vol] 52 mg/dL High 5-40 [facility] Comment on above: Order Comment: Order Date: 11/29/24 Order Info: [id number] - CMP Order Info: [id number] - LIPID Order Info: [id number] - MG Performed By: #### L 501.9985, L502.0250, L500.4050, L100.0100, L500.4100, L501.5200 #### [facility] [address] [place], [address] Triglyceride [Mass/Vol] 259 mg/dL High [facility] Comment on above: Order Comment: Order Date: 11/29/24 Order Info: [id number] - CMP Order Info: [id number] - LIPID Order Info: [id number] - MG Result Comment: The drugs N-Acetylcysteine and Metamizole may falsely depress this assay. Serum Triglycerides Reference Interval Normal <150 mg/dL Borderline high 150 - 199 mg/dL High 200 - 499 mg/dL Very High > or = 500 mg/dL Performed By: #### L 501.9985, L502.0250, L500.4050, L100.0100, L500.4100, L501.5200 #### [facility] [address] [place], [address] Low density lipoprotein (LDL ) cholesterol measurementOrdered By: Abraham Coker on 11-29-2024 Cholesterol in LDL [Mass/Vol] 59 mg/dL 0-130 [facility] Lymphocytes Auto (Unsp spec) [#/Vol]Ordered By: Abraham Coker on 11-29-2024 Lymphocytes (Bld) [#/Vol] 1.97 10*3/uL 0.83-4.5 1 [facility] Lymphocytes/100 WBC Auto (Un sp spec)Ordered By: Abraham Coker on 11-29-2024 Lymphocytes/100 WBC (Bld) 29.7 % 19-41 [facility] MCV (mean corpuscular volume ) determinationOrdered By: Abraham Coker on 11-29-2024 MCV (RBC) [Entitic vol] 86.6 fL 80-94 [facility] Magnesiumon 11-29-2024 Magnesium [Mass/Vol] 2.1 mg/dL Normal 1.6-2.6 [facility] Comment on above: Order Comment: Order Date: 11/29/24 Order Info: [id number] - CMP Order Info: [id number] - LIPID Order Info: [id number] - MG Result Comment: Slig ht Hemolysis, Result may be falsely increased. Performed By: #### L 501.9985, L502.0250, L500.4050, L100.0100, L500.4100, L501.5200 #### [facility] [address] [place], [address] Magnesium measurementOrdered By: Abraham Coker on 11-29-2024 Magnesium [Mass/Vol] 2.1 mg/dL 1.6-2.6 [facility] Comment on above: Slight Hemolysis, Re sult may be falsely increased. Mean corpuscular hemoglobin (MCH) determinationOrdered By: Abraham Coker on 11-29-2024 MCH (RBC) [Entitic mass] 29.1 pg 27.0-32.0 [facility] Mean corpuscular hemoglobin concentration (MCHC) determinationOrdered By: Abraham Coker on 11-29-2024 MCHC (RBC) [Mass/Vol] 33.5 g/dL 32-36 [facility] Mean platelet volume determi nationOrdered By: Abraham Coker on 11-29-2024 Platelet mean volume (Bld) [Entitic vol] 10.9 fL 6.2-12.0 [facility] Microalb:Creat Ratio,Random URon 11-29-2024 Creatinine [Mass/Vol] 249.00 mg/dL Normal NO RAN GE EST. [facility] Comment on above: Order Comment: Order Date: 11/29/24 Order Info: [id number] - MIACRE Performed By: #### L 501.9985, L502.0250, L500.4050, L100.0100, L500.4100, L501.5200 #### [facility] [address] [place], [address] MALB:CRE 6.6 mg/g CRE Normal <30 mg/g CRE [facility] Comment on above: Order Comment: Order Date: 11/29/24 Order Info: [id number] - MIACRE Performed By: #### L 501.9985, L502.0250, L500.4050, L100.0100, L500.4100, L501.5200 #### [facility] [address] [place], [address] MICROALBUMIN,UR 16.4 mg/L Normal NO RANGE EST. [facility] Comment on above: Order Comment: Order Date: 11/29/24 Order Info: [id number] - MIACRE Performed By: #### L 501.9985, L502.0250, L500.4050, L100.0100, L500.4100, L501.5200 #### [facility] [address] [place], [address] Monocyte percentageOrdered B y: Abraham Coker on 11-29-2024 Monocytes/100 WBC (Bld) 8.4 % 0-10 [facility] Neutrophil percentageOrdered By: Abraham Coker on 11-29-2024 Neutrophils/100 WBC (Bld) 58.1 % 47-70 [facility] Nucleated red blood cell per centageOrdered By: Abraham Coker on 11-29-2024 Nucleated RBC/100 WBC (Bld) [Ratio] 0 % 0-5 [facility] Platelet countOrdered By: Rachana Coker on 11-29-2024 Platelets (Bld) [#/Vol] 262 10*3/uL 150-450 [facility] Potassium measurementOrdered By: Abraham Coker on 11-29-2024 Potassium [Moles/Vol] 4.1 mmol/L 3.5-5.1 [facility] Comment on above: Slight Hemolysis, Re sult may be falsely increased. RBC Auto (Bld) [#/Vol]Ordere d By: Abraham Coker on 11-29-2024 RBC (Bld) [#/Vol] 5.61 10*6/uL 4.6-6.2 [facility] Random urine microalbumin me asurementOrdered By: Abraham Coker on 11-29-2024 Urine Random Microalbumin 16.4 mg/L NO RANGE EST. [facility] Serum anion gap measurementO rdered By: Abraham Coker on 11-29-2024 Anion gap [Moles/Vol] 4 mmol/L Low 5-15 [facility] Serum globulin measurementOr dered By: Abraham Coker on 11-29-2024 Globulin (S) [Mass/Vol] 3.3 g/dL 2.2-4.2 [facility] Serum or plasma alanine carroll otransferase (ALT) measurementOrdered By: Abraham Coker on 11-29-2024 ALT [Catalytic activity/Vol] 76 U/L High 16-61 [facility] Serum or plasma albumin nicky urement (mass/volume)Ordered By: Abraham Coker on 11-29-2024 Albumin [Mass/Vol] 4.1 g/dL 3.2-5.0 [facility] Serum or plasma alkaline marily sphatase measurementOrdered By: Abraham Coker on 11-29-2024 ALP [Catalytic activity/Vol] 87 U/L 45-117 [facility] Serum or plasma calcium nicky urement (mass/volume)Ordered By: Abraham Coker on 11-29-2024 Calcium [Mass/Vol] 9.0 mg/dL 8.5-10.1 [facility] Serum or plasma cholesterol measurement (mass/volume)Ordered By: Abraham Coker on 11-29-2024 Cholesterol [Mass/Vol] 150 mg/dL <200 [facility] Comment on above: <200 mg/dL Desirable 200-240 mg/dL Borderline >240 mg/dL High Risk Serum or plasma creatinine m easurement (mass/volume)Ordered By: Abraham Coker on 11-29-2024 Creatinine [Mass/Vol] 1.03 mg/dL 0.70-1.30 [facility] Comment on above: The validity of the calculated GFR & GFRAA in patients over 70 years has not been determined. Clinical correlation is essential. Serum or plasma urea nitroge n measurement (mass/volume)Ordered By: Abraham Coker on 11-29-2024 Urea nitrogen [Mass/Vol] 20 mg/dL High 7-18 [facility] Sodium levelOrdered By: Abraham Coker on 11-29-2024 Sodium [Moles/Vol] 138 mmol/L 136-145 [facility] Total proteinOrdered By: Kirk Coker on 11-29-2024 Protein [Mass/Vol] 7.4 g/dL 6.4-8.2 [facility] Triglycerides measurementOrd ered By: Abraham Coker on 11-29-2024 Triglyceride [Mass/Vol] 259 mg/dL High <199 [facility] Comment on above: The drugs N-Acetylcy steine and Metamizole may falsely depress this assay.Serum Triglycerides Reference Interval Normal <150 mg/dL Borderline high 150 - 199 mg/dL High 200 - 499 mg/dL Very High > or = 500 mg/dL Urine albumin/creatinine rat io for detection of microalbuminuriaOrdered By: Abraham Coker on 11-29-2024 Urine Microalbumin/Creatinine Ratio 6.6 mg/g CRE <30 [facility] Urine creatinine measurement (mass/volume)Ordered By: Abraham Coker on 11-29-2024 Creatinine (U) [Mass/Vol] 249.00 mg/dL NO RANGE EST. [facility] Very low density lipoprotein (VLDL) cholesterol measurementOrdered By: Abraham Coker on 11-29-2024 VLDL Cholesterol 52 mg/dL High 5-40 [facility] White blood cell (WBC) count Ordered By: Abraham Coker on 11-29-2024 WBC (Bld) [#/Vol] 6.6 10*3/uL 4.4-11.0 [facility] Absolute lymphocyte countOrd ered By: Abraham Coker on 09-29-2023 Lymphocytes Auto (Unsp spec) [#/Vol] 1.32 10*3/uL 0.83-4.51 [facility] Basophil percentageOrdered B y: Abraham Coker on 09-29-2023 Basophils/100 WBC (Bld) 0.8 % 0-1 [facility] Bilirubin [Mass/Vol] 0.90 mg/dL 0.20-1.00 [facility] Comment on above: For patients on eltr ombopag therapy, use of Dimension [place] TBIL is not recommended. Chloride [Moles/Vol] 106 mmol/L 98-107 [facility] Cholesterol [Mass/Vol] 123 mg/dL <200 [facility] Comment on above: <200 mg/dL Desirable 200-240 mg/dL Borderline >240 mg/dL High Risk Eosinophils/100 WBC (Bld) 1.7 % 0-5 [facility] Glucose [Mass/Vol] 124 mg/dL 74-106 [facility] Comment on above: Fasting Glucose resu lt from 100 to 125 mg/dL suggests IMPAIRED HOMEOSTASIS per A.D.A. criteria. Neutrophils (Bld) [#/Vol] 4.6 10*3/uL 2.0-7.7 [facility] Neutrophils/100 WBC (Bld) 70.1 % 47-70 [facility] Potassium [Moles/Vol] 3.9 mmol/L 3.5-5.1 [facility] Protein [Mass/Vol] 7.4 g/dL 6.4-8.2 [facility] Sodium [Moles/Vol] 141 mmol/L 136-145 [facility] Triglyceride [Mass/Vol] 136 mg/dL <199 [facility] Comment on above: The drugs N-Acetylcy steine and Metamizole may falsely depress this assay.Serum Triglycerides Reference Interval Normal <150 mg/dL Borderline high 150 - 199 mg/dL High 200 - 499 mg/dL Very High > or = 500 mg/dL WBC (Bld) [#/Vol] 6.5 10*3/uL 4.4-11.0 [facility] Blood erythrocytes count (nu mber/volume)Ordered By: Abraham Coker on 09-29-2023 RBC (Bld) [#/Vol] 5.36 10*6/uL 4.6-6.2 [facility] Blood hemoglobin measurement (mass/volume)Ordered By: Abraham Coker on 09-29-2023 Hemoglobin (Bld) [Mass/Vol] 15.3 g/dL 13.0-16. 5 [facility] Blood lymphocytes/100 leukoc ytesOrdered By: Abraham Coker on 09-29-2023 Lymphocytes/100 WBC (Bld) 20.3 % 19-41 [facility] Blood monocytes/100 leukocyt esOrdered By: Abraham Coker on 09-29-2023 Monocytes/100 WBC (Bld) 6.8 % 0-10 [facility] Blood platelet mean volumeOr dered By: Abraham Coker on 09-29-2023 Platelet mean volume (Bld) [Entitic vol] 10.4 fL 6.2-12.0 [facility] Determination of erythrocyte mean corpuscular volume (MCV)Ordered By: Abraham Coker on 09-29-2023 MCV (RBC) [Entitic vol] 89.9 fL 80-94 [facility] Hematocrit Auto (Bld) [Volum e fraction]Ordered By: Abraham Coker on 09-29-2023 Hematocrit (Bld) [Volume fraction] 48.2 % 40-54 [facility] Laboratory - Chemistry and C hemistry - challengeOrdered By: Abraham Coker on 09-29-2023 ALP [Catalytic activity/Vol] 72 U/L 45-117 [facility] ALT [Catalytic activity/Vol] 52 U/L 16-61 [facility] CO2 [Moles/Vol] 28.0 mmol/L 21.0-32.0 [facility] Globulin (S) [Mass/Vol] 3.5 g/dL 2.2-4.2 [facility] Magnesium [Mass/Vol] 2.3 mg/dL 1.6-2.6 [facility] Urea nitrogen/Creatinine [Mass ratio] 16.3 mg/mg 10-20 [facility] - Hematology and Cell countsOrdered By: Abraham Coker on 09-29-2023 Erythrocyte distribution width (RBC) [Entitic vol] 44.0 fL 35.1-43.9 [facility] Erythrocyte distribution width (RBC) [Ratio] 13.2 % 11.6-14.6 [facility] Immature granulocytes/100 WBC (Bld) 0.300 % 0.0-0.9 [facility] Comment on above: IG% - Immature Granu locytes (promyelocytes, myelocytes and metamyelocytes) > 1% indicates that a LEFT SHIFT is Present. MCH (RBC) [Entitic mass] 28.5 pg 27.0-32.0 [facility] Nucleated RBC/100 WBC (Bld) [Ratio] 0 % 0-5 [facility] MCHC Auto (RBC) [Mass/Vol]Or dered By: Abraham Coker on 09-29-2023 MCHC (RBC) [Mass/Vol] 31.7 g/dL 32-36 [facility] No Panel InformationOrdered By: Abraham Coker on 09-29-2023 Estimated GFR (MDRD) Amer 103 mL/min >60 [facility] Comment on above: GFR Calc Estimated GFR (MDRD) Non-Af Amer 85 mL/min >60 [facility] Comment on above: Non- GFR Calc Thyroid Stimulating Hormone (TSH) 1.45 uIU/mL 0.358-3.74 [facility] Urine Microalbumin/Creatinine Ratio 6.0 mg/g CRE <30 [facility] Platelets bldOrdered By: Kirk Coker on 09-29-2023 Platelets (Bld) [#/Vol] 245 10*3/uL 150-450 [facility] Serum or plasma albumin nicky urement (mass/volume)Ordered By: Abraham Coker on 09-29-2023 Albumin [Mass/Vol] 3.9 g/dL 3.2-5.0 [facility] Serum or plasma albumin/glob ulin mass ratioOrdered By: Abraham Coker on 09-29-2023 Albumin/Globulin [Mass ratio] 1.1 {ratio} 0.9-2.4 [facility] Serum or plasma calcium nicky urement (mass/volume)Ordered By: Abraham Coker on 09-29-2023 Calcium [Mass/Vol] 8.6 mg/dL 8.5-10.1 [facility] Serum or plasma cholesterol in HDL measurement (mass/volume)Ordered By: Abraham Coker on 09-29-2023 Cholesterol in HDL [Mass/Vol] 43 mg/dL >40 [facility] Comment on above: The drugs N-Acetylcy steine and Metamizole may falsely depress this assay. Reference Range HDL <40 mg/dL Low HDL Cholesterol HDL >or= 60 mg/dL High HDL Cholesterol Serum or plasma cholesterol in VLDL measurement (mass/volume)Ordered By: Abraham Coker on 09-29-2023 Cholesterol in VLDL [Mass/Vol] 27 mg/dL 5-40 [facility] Serum or plasma creatinine m easurement (mass/volume)Ordered By: Abraham Coker on 09-29-2023 Creatinine [Mass/Vol] 0.98 mg/dL 0.70-1.30 [facility] Comment on above: The validity of the calculated GFR & GFRAA in patients over 70 years has not been determined. Clinical correlation is essential. Serum or plasma low density lipoprotein (LDL) cholesterol measurement (mass/volume)Ordered By: Abraham Coker on 09-29-2023 Cholesterol in LDL [Mass/Vol] 53 mg/dL 0-130 [facility] Serum or plasma urea nitroge n measurement (mass/volume)Ordered By: Abraham Coker on 09-29-2023 Urea nitrogen [Mass/Vol] 16 mg/dL 7-18 [facility] Thin prep Papanicolaou smear with manual screeningOrdered By: Abraham Coker on 09-29-2023 Thin prep Papanicolaou smear with manual screening 17 U/L 15-37 [facility] Thin prep Papanicolaou smear with manual screening 7 5-15 [facility] Thin prep Papanicolaou smear with manual screening 5.4 mg/L NO RANGE EST. [facility] Urine creatinine measurement (mass/volume)Ordered By: Abraham Coker on 09-29-2023 Creatinine (U) [Mass/Vol] 89.80 mg/dL NO RANGE EST. [facility] Whole blood hemoglobin A1c/t otal hemoglobin ratio (mass fraction)Ordered By: Abraham Coker on 09-29-2023 HbA1c (Bld) [Mass fraction] 6.3 % 3.8-5.6 [facility] Comment on above: Normal < 5.7 % Predi abetic 5.7 - 6.4 % Diabetic >or= 6.5 % Please note range changes. Basophil percentageOrdered B y: Ju Toney on 03-10-2023 Bilirubin [Mass/Vol] 0.80 mg/dL 0.20-1.00 [facility] Comment on above: For patients on eltr ombopag therapy, use of Dimension [place] TBIL is not recommended. Chloride [Moles/Vol] 109 mmol/L 98-107 [facility] Cholesterol [Mass/Vol] 120 mg/dL <200 [facility] Comment on above: <200 mg/dL Desirable 200-240 mg/dL Borderline >240 mg/dL High Risk Glucose [Mass/Vol] 156 mg/dL 74-106 [facility] Comment on above: Fasting Glucose resu lt greater than or equal to 126 mg/dL suggests DIABETES MELLITUS per A.D.A. criteria. Potassium [Moles/Vol] 3.7 mmol/L 3.5-5.1 [facility] Protein [Mass/Vol] 6.8 g/dL 6.4-8.2 [facility] Sodium [Moles/Vol] 138 mmol/L 136-145 [facility] Triglyceride [Mass/Vol] 114 mg/dL <199 [facility] Comment on above: The drugs N-Acetylcy steine and Metamizole may falsely depress this assay.Serum Triglycerides Reference Interval Normal <150 mg/dL Borderline high 150 - 199 mg/dL High 200 - 499 mg/dL Very High > or = 500 mg/dL WBC (Bld) [#/Vol] 5.6 10*3/uL 4.4-11.0 [facility] Blood erythrocytes count (nu mber/volume)Ordered By: Ju Toney on 03-10-2023 RBC (Bld) [#/Vol] 5.15 10*6/uL 4.6-6.2 [facility] Blood hemoglobin measurement (mass/volume)Ordered By: Ju Toney on 03-10-2023 Hemoglobin (Bld) [Mass/Vol] 15.1 g/dL 13.0-16. 5 [facility] Blood platelet mean volumeOr dered By: Ju Toney on 03-10-2023 Platelet mean volume (Bld) [Entitic vol] 10.9 fL 6.2-12.0 [facility] Determination of erythrocyte mean corpuscular volume (MCV)Ordered By: Jumelanie Toney on 03-10-2023 MCV (RBC) [Entitic vol] 90.5 fL 80-94 [facility] Hematocrit Auto (Bld) [Volum e fraction]Ordered By: Ju Dawna on 03-10-2023 Hematocrit (Bld) [Volume fraction] 46.6 % 40-54 [facility] Laboratory - Chemistry and C hemistry - challengeOrdered By: [facility] Dawna on 03-10-2023 ALP [Catalytic activity/Vol] 72 U/L 45-117 [facility] ALT [Catalytic activity/Vol] 71 U/L 16-61 [facility] CO2 [Moles/Vol] 27.0 mmol/L 21.0-32.0 [facility] Globulin (S) [Mass/Vol] 3.0 g/dL 2.2-4.2 [facility] Urea nitrogen/Creatinine [Mass ratio] 17.4 mg/mg 10-20 [facility] Laboratory - Hematology and Cell countsOrdered By: Ju Toney on 03-10-2023 Erythrocyte distribution width (RBC) [Entitic vol] 43.3 fL 35.1-43.9 [facility] Erythrocyte distribution width (RBC) [Ratio] 13.2 % 11.6-14.6 [facility] MCH (RBC) [Entitic mass] 29.3 pg 27.0-32.0 [facility] MCHC Auto (RBC) [Mass/Vol]Or dered By: Ju Toney on 03-10-2023 MCHC (RBC) [Mass/Vol] 32.4 g/dL 32-36 [facility] No Panel InformationOrdered By: Ju Toney on 03-10-2023 Estimated GFR (MDRD) Amer 91 mL/min >60 [facility] Comment on above: GFR Calc Estimated GFR (MDRD) Non-Af Amer 75 mL/min >60 [facility] Comment on above: Non- GFR Calc Platelets bldOrdered By: Jossue Toney on 03-10-2023 Platelets (Bld) [#/Vol] 234 10*3/uL 150-450 [facility] Serum or plasma albumin nicky urement (mass/volume)Ordered By: Ju Toney on 03-10-2023 Albumin [Mass/Vol] 3.8 g/dL 3.2-5.0 [facility] Serum or plasma albumin/glob ulin mass ratioOrdered By: Ju Toney on 03-10-2023 Albumin/Globulin [Mass ratio] 1.3 {ratio} 0.9-2.4 [facility] Serum or plasma calcium nicky urement (mass/volume)Ordered By: Ju Toney on 03-10-2023 Calcium [Mass/Vol] 9.0 mg/dL 8.5-10.1 [facility] Serum or plasma cholesterol in HDL measurement (mass/volume)Ordered By: Ju Toney on 03-10-2023 Cholesterol in HDL [Mass/Vol] 36 mg/dL >40 [facility] Comment on above: The drugs N-Acetylcy steine and Metamizole may falsely depress this assay. Reference Range HDL <40 mg/dL Low HDL Cholesterol HDL >or= 60 mg/dL High HDL Cholesterol Serum or plasma cholesterol in VLDL measurement (mass/volume)Ordered By: Ju Toney on 03-10-2023 Cholesterol in VLDL [Mass/Vol] 23 mg/dL 5-40 [facility] Serum or plasma creatinine m easurement (mass/volume)Ordered By: Ju Toney on 03-10-2023 Creatinine [Mass/Vol] 1.09 mg/dL 0.70-1.30 [facility] Comment on above: The validity of the calculated GFR & GFRAA in patients over 70 years has not been determined. Clinical correlation is essential. Serum or plasma low density lipoprotein (LDL) cholesterol measurement (mass/volume)Ordered By: Ju Toney on 03-10-2023 Cholesterol in LDL [Mass/Vol] 61 mg/dL 0-130 [facility] Serum or plasma urea nitroge n measurement (mass/volume)Ordered By: Ju Toney on 03-10-2023 Urea nitrogen [Mass/Vol] 19 mg/dL 7-18 [facility] Thin prep Papanicolaou smear with manual screeningOrdered By: Jumelanie Toney on 03-10-2023 Thin prep Papanicolaou smear with manual screening 31 U/L 15-37 [facility] Thin prep Papanicolaou smear with manual screening 2 5-15 [facility] Whole blood hemoglobin A1c/t otal hemoglobin ratio (mass fraction)Ordered By: Ju Toney on 03-10-2023 HbA1c (Bld) [Mass fraction] 6.7 % 3.8-5.6 [facility] Comment on above: Normal < 5.7 % Predi abetic 5.7 - 6.4 % Diabetic >or= 6.5 % Please note range changes. CNOVon 12-28-2022 CNOV Office Visit (CARCMN) ---- INDIGO MARTINEZ ([id number]) 1970 M Date Time Provider Department 12/28/22 2:45 PM JOSE CHATMAN CARCMN During your visit today, we recorded the following information about you: Pulse Blood pressure Weight Height 69/minute 146/74 105.2 kg 1.753 m Jose Chatman MD 12/28/2022 3:49 PM Signed [facility] [place] [facility] Department of Cardiovascular Medicine SECTION OF CLINICAL CARDIOLOGY OUTPATIENT VISIT DATE December 28, 2022 OUTPATIENT VISIT TYPE ESTABLISHED PRIMARY CARE PHYSICIAN: MD Celia Dickerson [address] [facility] [address] [place] [address] REFERRING PHYSICIAN: SELF CHIEF COMPLAINT: Followup HISTORY [...] PVC burden and Paroxysmal atrial fibrillation, high [id number] score (5 stroke, DM, HTN, mild LV [...] 40mg ASSESSMENT: 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 Normal [facility] [id number] 12-28-2022 ECG01 Ventricular Rate : 67 BPM Atrial Rate : 67 BPM P-R Interval : 150 ms QRS Duration : 108 ms Q-T Interval : 398 ms QTC Calculation(Bazett) : 420 ms Calculated P [place] : 14 degrees Calculated R [place] : -24 degrees Calculated T [place] : 4 degrees NORMAL SINUS RHYTHM NORMAL ECG Confirmed by ANJANA SOLITARIO MD (22) on 01/03/2023 3:38:00 PM NAME : INDIGO MARTINEZ PID : [id number] : 1970 Gender : Male Race : ORD : Procedure Date : Dec 28 2022 14:01:23 Edit Date : Jan 03 2023 15:39:10 Diagnosis: NORMAL SINUS RHYTHM NORMAL ECG Confirmed by ANJANA SOLITARIO MD (22) on 01/03/2023 3:38:00 PM Test Reason : Location : 314 : J14 J14 Overread By : ANJANA SOLITARIO MD Edited By : ANJANA SOLITARIO MD Referred By : JOSE CHATMAN Acquired by : DUNCAN BA [facility] 11-18-2022 CNPN Telephone (CARD CHF BAIRON) ---- MARTINEZELIZA SEVERINOSPENSER Gabriel ([id number]) 1970 M Date Time Provider Department 11/18/22 MAURO PINEDA CARD CHF [facility] During your visit today, we recorded the following information about you: [employer] RN 11/18/2022 4:01 PM Addendum Antonio Solomon called from [employer]: Patient wore from 10/04/2022-10/10/20 22 4% burden Afib, episode was flagged for [...] 1,000 mg by mouth daily with breakfast. Facility-Administer ed Medications as of 11/23/2022 - perflutren lipid [...] Status:Closed by [employer] on 11/23/[address] [facility] Silverio 10-25-2022 ALEXN Telephone (CARCMN) ---- INDIGO MARTINEZ ([id number]) 1970 M Date Time Provider Department 10/25/22 MAURO PINEDA During your visit today, we recorded the following information about you: Melba Gonzalez 10/25/2022 4:24 PM Signed Received faxed PA request for Eliquis 5mg from [employer]. Melba Gonzalez October 25, 2022 4:24 PM [...] 1,000 mg by mouth daily with breakfast. Facility-Administer ed Medications as of 10/26/2022 - perflutren lipid [...] Status:Closed by SANAM BENJAMIN on 10/26/22 Normal [facility] Vital Signs Date Time Vital Sign Value Performing Clinician Elena monson 02-25-2025 08:38-0400 Body height 175.[address] Abraham Coker MD Work Phone: [facility] 02-25-2025 08:35-0400 Body mass index (BMI) [Ratio] 33.2 kg/m2 Dr. Abraham Coker MD Work Phone: [facility] 02-25-2025 08:35-0400 Body weight 102.[address] Abraham Coker MD Work Phone: [facility] 02-25-2025 08:35-0400 Diastolic blood pressure 80 mm[Hg] Dr. Abrhaam Coker MD Work Phone: [facility] 02-25-2025 08:35-0400 Heart rate 60 /min Dr. Abraham Coker MD Work Phone: [facility] 02-25-2025 08:35-0400 Respiratory rate 18 /min Dr. Abraham Coker MD Work Phone: [facility] 02-25-2025 08:35-0400 SaO2% (BldA) [Mass fraction] 95 % Dr. Abraham Coker MD Work Phone: [facility] 02-25-2025 08:35-0400 Systolic blood pressure 122 mm[Hg] Dr. Abraham Coker MD Work Phone: [facility] 12-28-2022 14:49-0500 Body height 175.3 cm Jose Chatman MD Work Phone: [facility] 12-28-2022 14:49-0500 Body weight 105.23 kg Jose Chatman MD Work Phone: [facility] 12-28-2022 14:49-0500 Diastolic blood pressure 74 mm[Hg] Jose Chatman MD Work Phone: [facility] 12-28-2022 14:49-0500 Heart rate 69 /min Jose Chatman MD Work Phone: [facility] 12-28-2022 14:49-0500 SaO2% (BldA) [Mass fraction] 97 % Jose Chatman MD Work Phone: [facility] 12-28-2022 14:49-0500 Systolic blood pressure 146 mm[Hg] Jose Chatman MD Work Phone: [facility] Encounters Encounter Date Encounter Type Care Provider Facility Start: 08-01-2025 End: 08-01-[address] Abraham Coker MD Work Phone: -[facility] Start: 08-01-2025 End: 08-01-[address] Abraham Coker MD -Laboratory [facility] Start: 08-01-2025 End: 08-01-2025 ambulatory Abraham Coker Facility:[facility] Start: 07-01-2025 End: 07-01-[address] Abraham Coker MD Work Phone: -[facility] Start: 07-01-2025 End: 07-01-2025 Patient encounter procedure Tito Marciaow LASER MACHINE OPERATOR-C -[facility] Work Phone: Start: 07-01-2025 End: 07-01-2025 ambulatory Abraham Coker Facility:[facility] Start: 03-10-2025 End: 03-10-[address] Abraham Coker MD Work Phone: [facility] Work Phone: Start: 03-10-2025 End: 03-10-[address] Abraham Coker MD -Laboratory, [facility] Start: 03-10-2025 End: 03-10-2025 ambulatory Abraham Coker Facility:[facility] Start: 02-25-2025 End: 02-25-2025 Patient encounter procedure Minerva Gómez NP-C -[facility] Work Phone: Start: 02-25-2025 End: 02-25-2025 ambulatory Abraham Coker Facility:[facility] Start: 11-29-2024 End: 11-29-[address] Abraham Coker MD -Laboratory, [facility] Start: 11-29-2024 End: 11-29-2024 ambulatory Abraham Coker Facility:[facility] Start: 10-19-2023 ambulatory Jose crowell MD Work Phone: Cardiology Comment on above: Heart monitor Start: 09-29-2023 End: 09-29-2023 ambulatory [facility] Work Phone: Start: 09-29-2023 End: 09-29-2023 Patient encounter procedure [facility] Start: 03-29-2023 Refill Mauro Pineda MD Work Phone: Cardiology Comment on above: Refill Request Start: 03-10-2023 End: 03-10-2023 ambulatory [facility] Work Phone: Start: 03-10-2023 End: 03-10-2023 Patient encounter procedure [facility] Start: 12-28-2022 End: 12-29-2022 [facility] Start: 12-28-2022 End: 12-28-2022 Patient encounter procedure Jose Chatman MD Work Phone: Cardiology Comment on above: Paroxysmal atrial fi brillation (HCC) (Primary Dx) Start: 11-18-2022 Telephone encounter Mauro olson MD Work Phone: Cardiology Comment on above: Results Start: 10-25-2022 Telephone encounter Mauro olson MD Work Phone: Cardiology Comment on above: Received Request for PA for Angelachantal Start: 03-15-2022 ambulatory Mauro Pineda MD Work Phone: Cardiology Comment on above: Should I continue jen moreau? Procedures Date Procedure Procedure Detail Performing Clinician Start: 08-01-2025 Urnls dip stick/tabl et reagent auto microscopy Dr. Abraham Coker MD Work Phone: Start: 07-01-2025 X-ray of foot, three or more views Dr. Abraham Coker MD Work Phone: Plan of Treatment Date Care Activity Detail Author Start: 07-21-2023 Covid-19 Vaccine () Covid-19 Vaccine () [facility] Start: 07-21-2023 Influenza vaccination [facility] Start: 11-20-2022 [facility] Start: 07-21-2022 Influenza vaccination C [facility] Start: 04-27-2022 Hemoglobin A1c/Hemoglobin.total in Blood HBA1C [facility] Start: 11-20-2021 DEPRESSION ASSESSMENT DEPRESSION ASS ESSMENT [facility] Start: 2020 SHINGRIX VACCINE (1 of 2) SHINGRIX V ACCINE (1 of 2) [facility] Start: 2015 COLOGUARD (FIT-DNA) COLOGUARD (FIT-D NA) [facility] Start: 2015 Colonoscopy COLONOSCOPY [facility] Start: 2015 COLORECTAL CANCER SCREENING COLORECTAL CANCER SCREENING [facility] Start: [address] COLONOGRAPHY [facility] Start: 2015 FECAL OCCULT BLOOD FECAL OCCULT BLOO D [facility] Start: 2015 SIGMOIDOSCOPY SIGMOIDOSCOPY [facility] Start: 1989 Urine microalbumin profile [facility] Start: 1988 ANNUAL PCP TEAM MOLD INJECTOR KENRICK DISEASE VISIT ANNUAL PCP TEAM CHRONIC DISEASE VISIT [facility] Start: 1988 Hepatitis B surface antibody level LDL CHOLESTEROL [facility] Start: 1988 HEPATITIS C SCREENING HEPATITIS C SC REENING [facility] Start: 1988 HIV SCREENING HIV SCREENING [facility] Start: 1986 ONE PNEUMOVAX PRIOR TO AGE 65 ONE PNEUMOVAX PRIOR TO AGE 65 [facility] Start: 1982 Adult depression scr eening assessment DEPRESSION SCREENING [facility] Start: 1980 3 comp foot exam completed DIABETIC FOOT EXAM [facility] Start: 1980 Hepatitis B screening URINE AL BUMIN:CREATININE RATIO [facility] Start: 1980 Hepatitis C antibody , confirmatory test DILATED RETINAL EXAM [facility] Start: 1976 PNEUMOCOCCAL (1 - PCV) PNEUMOCOCCAL (1 - PCV) [facility] Start: 1976 Pneumococcal vaccination Pneum ococcal Vaccine (1 - PCV) [facility] Start: 1970 HEPATITIS B (1 of 3 - 3-dose series) HEPATITIS B (1 of 3 - 3-dose series) [facility] Start: 1970 Hepatitis B Vaccine (1 of 3 - 3-dose series) Hepatitis B Vaccine (1 of 3 - 3-dose series) [facility] Immunizations Immunization Date Immunization Notes Care Provider Fa cility 11-10-2021 Covid (Pfizer) [facility] 03-03-2021 Covid (Pfizer) [facility] 01-30-2021 Covid (Pfizer) [facility] Payers Date Payer Category Payer Self-pay [id number] 2021 Private Health Insurance [id number] 2020 Private Health Insurance JUAN ROBERTS [id number] 2020-Present [phone] [facility] [id number] [place] [address] Open Access [id number] 2020 Private Health Insurance [id number] Unknown [id number] Unknown [id number] Unknown [id number] 62 Unknown [id number] 62 Unknown [id number] 62 Unknown [id number] Social History Date Type Detail Facility Start: 08-20-2021 End: 07-16-2024 Tobacco smoking status NHIS Never smoked tobacco [facility] Start: 08-20-2021 End: 12-28-2022 Tobacco use and exposure Smokeless tobacco non-user [facility] Start: 12-29-2021 End: 12-28-2022 Alcohol intake Current drinker of alcohol (finding) [facility] Start: 08-20-2021 History SDOH Alcohol Comment social [facility] Start: 1970 Sex Assigned At Male C [facility] Start: 11-11-2021 End: 11-11-2021 Tobacco smoking status NHIS Unknown if ever smoked [facility] Start: 12-28-2022 History of Social function [facility] Start: 12-28-2022 Tobacco use panel [facility] National Score (1-10 0), lower number is lower risk 64 [facility] Start: 10-27-2021 Gender identity Identifies as male gender (finding) [facility] Start: 10-27-2021 Sexual orientation Heterosexual (fin ding) [facility] Start: 03-13-2025 Sex Male (finding) [facility] Clinical Notes 10-26-2022 to 07-02-2025 Note Date & Type Note Facility 07-02-2025 Radiology Diagnostic study note [facility] Imaging Services [address] [place] [address] (074 Foot min 3 Views MR#: [id number] Acct: [id number] Name: INDIGO MARTINEZ Rep #: [id number] : 1970 M 54 From: Demetrice Castro MD PCP: Dr. Abraham Coker MD Status: RE G CLI Study:Foot min 3 Views Date of Exam: 11/13 Exam# [id number] Ordering Dr: Tito Hutchison NP, NP-C PROCEDURE: FOOT MIN 3 VIEWS 07/01/2025 REASON FOR EXAM: PAIN, REDNESS TECHNIQUE: FOOT MIN 3 VIEWS Laterality: Right COMPARISON: No FINDINGS: Old 5th metatarsal fracture. Mild 1st MTP joint osteoarthritis. Posterior and plantar calcaneal spurs. No acute bone or soft tissue pathology. RAD/Foot min 3 Views IMPRESSION: No acute findings Reading Location: [place] [address] CC: Tito LÓPEZ NP-Brooks Hutchison; Dr. Abraham Coker MD ~ Quality Assurance Monitor Final: Signed [facility] 02-25-2025 Evaluation note Diagnosis Onset Date Resolution Atrial fibrillation acute February 25, 2025 8:25am History of stroke acute February 252024 8:25am Suspected sleep apnea acute Feb 8:25am Hypertension chronic February 25 025 8:25am [facility] Work Phone: 1(532) 404-600212-01-2023 Miscellaneous Notes* Telephone Encounter - Randa Carr RN - 10/20/2023 12:27 PM EST Images from the original note were not included. Messaged patient Randa Carr RN * Telephone Encounter - Randa Carr RN - 10/20/2023 8:58 AM EST Images from the original note were not included. VITOR 12/28/2022 PLAN: Continue current medication regimen. Shared decision after review of echo imaging and discussing his rather lack of associated symptoms,to continue with medical management/rate control strategy for his Afib/PVCs. Will place a one year followup though glad to connect sooner if/as any change clinically or new symptoms present [facility] Miscellaneous Notes* Telephone Encounter - Melba Gonzalez - 03/29/2023 9:02 AM EDT Pharmacy electronic RX request to request a refill on the medication(s) below: Requested Prescriptions Pending Prescriptions Disp Refills ELIQUIS 5 mg tab(s) [Pharmacy Med Name: ELIQUIS TABS 5MG] 180 tablet 3 Sig: TAKE 1 TABLET TWICE A DAY PHARMACY NAME [facility] / PHONE NUMBER: [phone] Mail Order RX Physician's Name: Mauro Coppola M.D. Last seen in office: 12/28/2022 If last appointment greater than one year or no follow up scheduled, sent to schedulers No Melba Gonzalez 03/29/2023 [facility]-2023 NoteHNO ID: [id number] Author: Jose Chatman MD Service: ? Author Type: Physician Type: Progress Notes Filed: 12/28/2022 3:49 PM Note Text: [facility] [place] [facility] Department of Cardiovascular Medicine SECTION OF CLINICAL CARDIOLOGY OUTPATIENT VISIT DATE December 28, 2022 OUTPATIENT VISIT TYPE ESTABLISHED PRIMARY CARE PHYSICIAN: Abraham Coker MD [facility] [place] [address] REFERRING PHYSICIAN: SELF CHIEF COMPLAINT: Followup HISTORY [...] PVC burden and Paroxysmal atrial fibrillation, high [id number] score (5 stroke, DM, HTN, mild LV [...] lateral positions in open technique according to Gregory-Mark, flexible sigmoidoscopy, and endoscopic resection of sigmoid [...] is negative with t (more content not included)...[facility]02-08-2023 History of Present illness Narrative* Jose Chatman MD - 12/28/2022 1:08 PM EST Images from the original note were not included. [facility] [place] [facility] Department of Cardiovascular Medicine SECTION OF CLINICAL CARDIOLOGY OUTPATIENT VISIT DATE December 28, 2022 OUTPATIENT VISIT TYPE ESTABLISHED PRIMARY CARE PHYSICIAN: MD Celia Dickerson E FEDER[place] FONTAINE AUNDREA [address] [place] [id number] REFERRING PHYSICIAN: SELF CHIEF COMPLAINT: Followup HISTORY [...] PVC burden and Paroxysmal atrial fibrillation, high [id number] score (5 stroke, DM, HTN, mild LV [...] 40mg ASSESSMENT: Very pleasant 52 year old gentlmean presenting with the above history and cardiovascular [...] with questions/concerns at any time. To note, [employer] messages that are non-urgent do have a 72 hour window for response by either myself or one of my staff. Thank you for our visit today. It's a privilege to help lead your care. Jose Chatman MD, MPH Staff Laundry Superintendent Section of Clinical Cardiology Heart, Vascular and Thoracic [place] [facility] [address] [place] [address] Office: [phone] documented in this encounterRegency Hospital [facility]12-30-2022 Miscellaneous Notes* Telephone Encounter - La Nena Cleaning RN - 11/18/2022 1:48 PM EST Antonio Juanito called from [employer]: Patient wore from 10/04/2022-10/10/2022 4% burden Afib, episode was flagged for average HR of 164 BPM sustained for 60 seconds. On page 11 strip 5. Patient did provide 2 triggers both times patient in NSR. La Nena Cleaning RN documented in this encounterRegency Hospital [facility]12-07-2022 Miscellaneous Notes* Telephone Encounter - Sanam Benjamin RN - 10/26/2022 9:13 AM EST Images from the original note were not included. Per cover my meds: Sanam Benjamin RN * Telephone Encounter - Melba Gonzalez - 10/25/2022 4:23 PM EST Images from the original note were not included. Received faxed PA request for Eliquis 5mg from [employer]. 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 Advance Directive(s) 10/21/2021 8:25 AM Advance Directive Response Recorded Date/ Time Living Will No November 11 021 3:46pm Power of Erecting Engineer No November 11, 2021 3:46pm Advance Directive Response Recorded Date/ Time Living Will No November 11, 021 2:46pm Power of Erecting Engineer No November 11, 2021 2:46pm Summary Purpose [...] or prosecute any alcohol or drug abuse patient.[facility] EastIn the event this information is protected by the Federal Confidentiality of Alcohol and Drug Abuse Patient Records regulations: The Federal rules restrict any use of the information to criminally investigate or prosecute any alcohol or drug abuse patient.[facility] EastIn the event this information is protected by the Federal Confidentiality of Alcohol and Drug Abuse Patient Records regulations: The Federal rules restrict any use of the information to criminally investigate or prosecute any alcohol or drug abuse patient.[facility] EastIn the event this information is protected by the Federal Confidentiality of Alcohol and Drug Abuse Patient Records regulations: The Federal rules restrict any use of the information to criminally investigate or prosecute any alcohol or drug abuse patient.[facility] EastIn the event this information is protected by the Federal Confidentiality of Alcohol and Drug Abuse Patient Records regulations: The Federal rules restrict any use of the information to criminally investigate or prosecute any alcohol or drug abuse patient.[facility] EastIn the event this information is protected by the Federal Confidentiality of Alcohol and Drug Abuse Patient Records regulations: The Federal rules restrict any use of the information to criminally investigate or prosecute any alcohol or drug abuse patient.[facility] Care Teams (unrecognized sec tion and content) Supervisor Decorating Relationship Specialty Start Date End Date Abraham Coker [address] [facility] [address] [place] [address] PCP - General Family Practice 08/16/21 Mauro Pineda MD [address] [facility] [place] [address] Primary Staff Physician Cardiology 10/27/21 Supervisor Decorating Relationship Specialty Start Date End Date Abraham Coker [address] [facility] [address] [place] [address] PCP - General Family Medicine 08/16/21 Mauro Pineda MD [address] [place] [address] Primary Staff Physician Cardiology 10/27/21 Supervisor Decorating Relationship Specialty Start Date End Date Abraham Coker [address] [facility] [address] [place] [address] PCP - General Family Medicine 08/16/21 Mauro Pineda MD [address] [place] [address] Primary Staff Physician Cardiology 10/27/21 Supervisor Decorating Relationship Specialty Start Date End Date Abraham Coker [address] [facility] [address] [place] [address] PCP - General Family Medicine 08/16/21 Mauro Pineda MD [address] [place] [address] Primary Staff Physician Cardiology 10/27/21 Team Status: Active Member Role Status Dates Dr. Abraham Coker MD Primary Care Provider Active Team Status: Inactive Member Role Status Dates Dr. Abraham Coker MD Primary Care Provider, Attend ing Provider Active Supervisor Decorating Relationship Specialty Start Date End Date Abraham Coker [address] [facility] [address] [place] [address] PCP - General Family Medicine 08/16/21 Mauro Pineda MD [address] [place] [address] Primary Staff Physician Cardiology 10/27/21 Supervisor Decorating Relationship Specialty Start Date End Date [facility] Coker MD [address] [facility] [address] [place] [address] PCP - General Family Medicine 08/16/21 Mauro Pineda MD [address] [place], [place] [id number] Primary Staff Physician Cardiology 10/27/21 Team Status: [...] 2025 End: February 25, 2025 Minerva Gómez LASER MACHINE OPERATOR, LASER MACHINE OPERATOR-C Attending Provider Active Start: February 25, 2025 [...] 2025 End: July 01, 2025 Tito Hutchison LASER MACHINE OPERATOR, LASER MACHINE OPERATOR-C Attending Provider Active Start: July 01, 2025 End: July 01, 2025 Tito Hutchison LASER MACHINE OPERATOR, LASER MACHINE OPERATOR-C Referring Provider Active Start: July 01, 2025 End: July 01, 2025 Team Status: Active Member Role/Relationship Status Dates Dr. Abraham Coker MD Primary care physician Active Team Status: Inactive Member Role/Relationship Status Dates Dr. Abraham Coker MD Primary care physician Active Start: July 01, 2025 End: July 01, 2025 Tito Hutchison LASER MACHINE OPERATOR, LASER MACHINE OPERATOR-C Attending physician Active Start: July 01, 2025 End: July 01, 2025 Tito Hutchison LASER MACHINE OPERATOR, LASER MACHINE OPERATOR-C Referring Provider Active Start: July 01, 2025 End: July 01, 2025 Team Status: Inactive Member Role/Relationship Status Dates Dr. Abraham Coker MD Primary care physician Active Start: August 01, 2025 End: August 01, 2025 Dr. Abraham Coker MD Attending physician Active Start: August 01, 2025 End: August 01, 2025 Dr. Abraham Coker MD Referring Provider Active Start: August 01, 2025 End: August 01, 2025 Reason for Visit (unrecogniz ed section and content) Reason Comments Received Request for PA for Eliquis Reason Comments Results Reason Comments Follow Up Reason Comments Refill Request (unrecognized sect ion and content) No Status Records FoundNo Status Records Found INFORMATION SOURCE (unrecogn ized section and content) DATE CREATED AUTHOR 01/04/2023 [facility] DATE CREATED AUTHOR AUTHOR'S ORGANIZ ATION 08/09/2025 [facility] Goals (unrecognized section and content) [...] BE BASED ON THE PRIMARY CLINICAL RECORDS. [facility] [employer] provides no warranty or guarantee of the accuracy or completeness of information in this document.
[2025-11-11 18:13] LABS: AST(SGOT) 21 U/L (<=37); Alanine Aminotransfer ALT/SGPT 36 U/L (<=46); Albumin, Serum 4.4 g/dL (3.5-5.0); Alkaline Phosphatase 83 U/L (40-129); Anion Gap 9 (7-18); BUN 14 mg/dL (4-19); BUN/Creat Ratio 14.4 RATIO (10-20); Calcium,Total 8.9 mg/dL (7.6-11.0); Carbon Dioxide 27.4 mmol/L (20.0-29.0); Chloride 103 mmol/L (96-106); Cholesterol 149 mg/dL (<=200); Globulin 2.5 g/dL (2.2-4.2); Glucose 94 mg/dL (70-99); Low Density Lipoprotein Calc. 80 mg/dL; PSA,Total - Annual Screen 1.21 ng/mL (0.02-4.00); Potassium 3.7 mmol/L (3.5-5.1); Triglycerides 167 mg/dL; Very Low Density Lipoprotein 33 mg/dL (5-40); cholesterol:hdl ratio screen 3.70
== END | disposition home or self-care (01) ==
LOC: MTLAB 16:28
PROVIDERS: PCP Family Medicine; Referring Provider Family Medicine; Visit Provider Family Medicine
DX: Z12.5 Encounter for screening for malignant neoplasm of prostate (principal); E11.8 Type 2 diabetes mellitus with unspecified complications; Z86.73 Personal history of transient ischemic attack (TIA), and cerebral infarction without residual deficits
CPT/HCPCS: 36415; 80053; 80061; 82043; 82570; 83036; 84153; 85025; G0103